=== PATIENT | female | born 1985 | race Caucasian/White ===

== ENCOUNTER → 2018-07-06 | Outpatient (CLI) | payer OTHER ==
[2018-07-06 13:32] LABS: HCG, SERUM QUANTITATIVE < 1.0 MIU/ML
== END ==
LOC: M LAB 12:08
DX: Z32.00 Encounter for pregnancy test, result unknown (principal)
CPT/HCPCS: 84702

== ENCOUNTER 2018-08-05 14:18 | Emergency (ER) | payer OTHER ==
[2018-08-05 15:25] LABS: HCG, SERUM QUANTITATIVE < 1.0 MIU/ML
== END 2018-08-05 15:34 | disposition home or self-care (01) ==
LOC: M ED 14:18
DX: Z32.00 Encounter for pregnancy test, result unknown (principal); R10.2 Pelvic and perineal pain
CPT/HCPCS: 84702

== ENCOUNTER → 2019-04-20 | Outpatient (CLI) | payer OTHER ==
[~2019-04-20] MED LIST: MULTTAB20 PO
== END ==
LOC: M LAB 09:02
PROVIDERS: ATTEND Obstetrics & Gynecology
DX: Z32.00 Encounter for pregnancy test, result unknown (principal)

== ENCOUNTER → 2019-07-01 | Outpatient (CLI) | payer OTHER | LOC: M LAB 16:14 | PROVIDERS: ATTEND Obstetrics & Gynecology | DX: Z32.00 Encounter for pregnancy test, result unknown (principal) ==

== ENCOUNTER → 2019-09-28 | Outpatient (REF) | payer OTHER ==
[2019-09-28 13:20] LABS: INFLUENZA A AMPLIFICATION NEGATIVE (NEGATIVE); INFLUENZA B AMPLIFICATION NEGATIVE (NEGATIVE)
== END ==
LOC: M LAB REF 09:30
PROVIDERS: ATTEND Physician Assistant Medical
DX: J02.9 Acute pharyngitis, unspecified (principal); R50.9 Fever, unspecified

== ENCOUNTER 2020-01-16 08:43 | Outpatient (RCR) | payer OTHER | END 2020-01-19 | LOC: M PT 08:43 | PROVIDERS: ATTEND Nurse Practitioner Family | DX: Z51.89 Encounter for other specified aftercare (principal); M72.2 Plantar fascial fibromatosis ==

== ENCOUNTER → 2020-01-20 | Outpatient (CLI) | payer OTHER ==
[2020-01-20 13:45] LABS: BASO % 0.4 % (0.0-1.0); EOS # 0.1 10^3/uL (0.0-0.5); EOS % 0.7 % (0.0-3.0); HEMATOCRIT 38.2 % (36.0-47.0); HEMOGLOBIN 12.6 g/dl (12.0-15.5); LYMPH % 42.7 % (24.0-44.0); MEAN CORPUSCULAR HEMOGLOBIN 30.1 pg (27.0-33.0); MEAN CORPUSCULAR VOLUME 91.2 fl (80.0-96.0); MONO # 0.4 10^3/uL (0.0-0.8); MONO % 5.5 % (0.0-5.0); NEUTROPHILS # 3.6 10^3/uL (1.5-8.5); NEUTROPHILS % 50.6 % (36.0-66.0); PLATELET COUNT, AUTOMATED 179 10^3/uL (150-450); RED BLOOD COUNT 4.19 10^6/uL (4.00-5.40); WHITE BLOOD COUNT 7.1 10^3/uL (4.0-10.0)
[2020-01-20 14:18] LABS: HEMOGLOBIN A1c 5.5 %
[2020-01-20 14:28] LABS: ALBUMIN 4.1 GM/DL (3.2-5.2); ALT/SGPT 24 U/L (12-78); BILIRUBIN,TOTAL 1.6 MG/DL (0.2-1.0); BLOOD UREA NITROGEN 13 MG/DL (7-18); CARBON DIOXIDE LEVEL 24 MEQ/L (21-32); CHLORIDE LEVEL 105 MEQ/L (98-107); CHOLESTEROL LEVEL 151 MG/DL (<200); CHOLESTEROL RISK RATIO 2.157 (<5); CREATININE FOR GFR 0.74 MG/DL (0.55-1.30); GLOMERULAR FILTRATION RATE > 60.0 (>60); GLUCOSE, FASTING 75 MG/DL (70-100); HDL CHOLESTEROL 70 MG/DL (>40); LDL CHOLESTEROL 73 MG/DL (<100); NON-HDL-C 81 MG/DL; POTASSIUM SERUM 4.2 MEQ/L (3.5-5.1); SODIUM LEVEL 136 MEQ/L (136-145); THYROID STIMULATING HORMONE 0.947 uIU/ML (0.358-3.740); TOTAL PROTEIN 7.2 GM/DL (6.4-8.2); TRIGLYCERIDES LEVEL 42 MG/DL (<150)
== END ==
LOC: M LAB 13:17
PROVIDERS: ATTEND Nurse Practitioner Family
DX: E28.2 Polycystic ovarian syndrome (principal); E66.9 Obesity, unspecified

== ENCOUNTER 2020-02-17 07:57 | Outpatient (RCR) | payer OTHER | END 2020-02-18 | LOC: M PT 07:57 | PROVIDERS: ATTEND Nurse Practitioner Family | DX: M72.2 Plantar fascial fibromatosis (principal) ==

== ENCOUNTER 2020-03-19 11:00 | Outpatient (RCR) | payer OTHER | END 2020-03-20 | LOC: M PT 11:00 | PROVIDERS: ATTEND Nurse Practitioner Family | DX: M72.2 Plantar fascial fibromatosis (principal) ==

== ENCOUNTER → 2020-04-06 | Outpatient (CLI) | payer OTHER ==
[~2020-04-06] MED LIST changes: +[UNRECOGNIZED DRUG - CODE]
[2020-06-01 20:19] LABS: PROGESTERONE 51.22 NG/ML
== END ==
LOC: M LAB 06:49
PROVIDERS: ATTEND Obstetrics & Gynecology
DX: Z32.01 Encounter for pregnancy test, result positive (principal)

== ENCOUNTER → 2020-04-08 | Outpatient (CLI) | payer OTHER | LOC: M LAB 07:07 | PROVIDERS: ATTEND Obstetrics & Gynecology | DX: O09.00 Supervision of pregnancy with history of infertility, unspecified trimester (principal); Z3A.00 Weeks of gestation of pregnancy not specified ==

== ENCOUNTER → 2020-04-20 | Outpatient (RCR) | payer OTHER | LOC: M PT 03-23 13:00 | PROVIDERS: ATTEND Nurse Practitioner Family | DX: M72.2 Plantar fascial fibromatosis (principal) ==

== ENCOUNTER 2020-04-30 13:03 | Emergency (ER) | payer OTHER ==
[~2020-04-30] VITALS: Ht 167.6 cm; Wt 74.5 kg
[~2020-04-30 13:03] MED LIST changes: -[UNRECOGNIZED DRUG - CODE]
[2020-04-30] MEDS ORDERED: [UNRECOGNIZED DRUG - CODE] (13:12)
[2020-04-30] MEDS ORDERED: RHOGAM 300 MCG (1500 IU) INJ (J2790) IM ONE (14:00)
[2020-04-30 16:48] VITALS: BP 116/71
== END 2020-04-30 16:55 | disposition home or self-care (01) ==
LOC: M ED 13:03
DX: O21.9 Vomiting of pregnancy, unspecified (principal); Z3A.01 Less than 8 weeks gestation of pregnancy; E28.2 Polycystic ovarian syndrome; O99.281 Endocrine, nutritional and metabolic diseases complicating pregnancy, first trimester
CPT/HCPCS: 86850; 96372; 99283; J2790

== ENCOUNTER → 2020-05-07 | Outpatient (CLI) | payer OTHER ==
[~2020-05-07] MED LIST changes: +[UNRECOGNIZED DRUG - CODE]
== END ==
LOC: M LAB 06:22
PROVIDERS: ATTEND Obstetrics & Gynecology
DX: O02.1 Missed abortion (principal)

== ENCOUNTER → 2020-06-08 | Outpatient (CLI) | payer OTHER | LOC: M LAB 07:15 | PROVIDERS: ATTEND Student in an Organized Health Care Education/Training Program | DX: O02.1 Missed abortion (principal); Z3A.00 Weeks of gestation of pregnancy not specified ==

== ENCOUNTER → 2020-07-15 | Outpatient (CLI) | payer OTHER ==
[~2020-07-15] MED LIST changes: +GUAI1SOL7 PO; +TESS100C PO
== END ==
LOC: M LAB 06:52
PROVIDERS: ATTEND Obstetrics & Gynecology
DX: Z32.00 Encounter for pregnancy test, result unknown (principal)

== ENCOUNTER 2020-07-18 15:26 | Emergency (ER) | payer OTHER ==
[~2020-07-18] VITALS: Ht 167.6 cm; Wt 77.7 kg
[~2020-07-18 15:26] MED LIST changes: -GUAI1SOL7 PO; -TESS100C PO
[2020-07-18 16:20] LABS: BASO % 0.2 % (0.0-1.0); HEMOGLOBIN 12.4 g/dl (12.0-15.5); LYMPH # 1.3 10^3/uL (1.5-5.0); LYMPH % 16.1 % (24.0-44.0); MEAN CORPUSCULAR HGB CONC 31.8 g/dl (32.0-36.5); MEAN CORPUSCULAR VOLUME 91.1 fl (80.0-96.0); MONO # 0.1 10^3/uL (0.0-0.8); MONO % 1.2 % (0.0-5.0); NEUTROPHILS # 6.8 10^3/uL (1.5-8.5); NEUTROPHILS % 82.3 % (36.0-66.0); PLATELET COUNT, AUTOMATED 206 10^3/uL (150-450); RED BLOOD COUNT 4.28 10^6/uL (4.00-5.40); WHITE BLOOD COUNT 8.3 10^3/uL (4.0-10.0)
[2020-07-18] MEDS ORDERED: NS 1,000 ML IV ONE (16:45)
[2020-07-18 16:47] LABS: ALBUMIN 4.2 GM/DL (3.2-5.2); ALT/SGPT 27 U/L (12-78); BILIRUBIN,DIRECT 0.3 MG/DL (0.0-0.2); BILIRUBIN,TOTAL 1.1 MG/DL (0.2-1.0); CK-MB VALUE MASS < 1.0 NG/ML (<3.6); CPK CREATINE PHOSPHOKINASE 92 U/L (26-192); LIPASE 142 U/L (73-393); MB/CK RELATIVE INDEX 1.09 (< OR =4); TOTAL PROTEIN 7.6 GM/DL (6.4-8.2); TROPONIN I < 0.02 NG/ML (< 0.10)
[2020-07-18 16:48] LABS: INR 0.9; PROTHROMBIN TIME 12.3 SECONDS (12.5-14.3)
[2020-07-18 16:58] LABS: D-DIMER QUANT 294.46 ng/ml (<500)
[2020-07-18 17:00] LABS: BLOOD UREA NITROGEN 12 MG/DL (7-18); CARBON DIOXIDE LEVEL 27 MEQ/L (21-32); CHLORIDE LEVEL 108 MEQ/L (98-107); GLOMERULAR FILTRATION RATE > 60.0 (>60); GLUCOSE, FASTING 125 MG/DL (70-100); POTASSIUM SERUM 4.1 MEQ/L (3.5-5.1); SODIUM LEVEL 140 MEQ/L (136-145)
[2020-07-18 17:04] LABS: HCG, SERUM QUALITATIVE NEGATIVE (NEGATIVE)
[2020-07-18 18:20] LABS: INFLUENZA A AMPLIFICATION NEGATIVE (NEGATIVE); INFLUENZA B AMPLIFICATION NEGATIVE (NEGATIVE)
[2020-07-18] MEDS ORDERED: ISOVUE-370 76% 100ML VIAL As Ordered ONE (18:29)
[2020-07-18] MEDS ORDERED: KETOROLAC 30 MG/ML 1ML VIAL IV ONE (18:30)
--- NOTE | 2020-07-18 18:36 | ECGEPIP ---
[facility] - ED Test Date: 2020-07-18 Pat Name: JOSE LUIS CANDELARIO Department: Room: - Gender: Female Landman: DANGELO : 1985 Requested By: Pamela Scott Order Number: [id number] Reading MD: Pamela Scott Measurements Intervals [place] Rate: 69 P: 66 TN: 138 QRS: 69 QRSD: 83 T: 61 QT: 374 QTc: 403 Interpretive Statements SINUS RHYTHM No prior Electronically Signed on 07-18-2020 18:35:54 EST by Pamela Scott
--- NOTE | 2020-07-18 18:57 | REPVR ---
PROCEDURE INFORMATION: Exam: CT Angiography Chest With Contrast Exam date and time: 07/18/2020 6:32 PM Age: 35 years old Clinical indication: Shortness of breath; Chest pain; Additional info: Pleuritic chest pain, SOB TECHNIQUE: Imaging protocol: Computed tomographic angiography of the chest with intravenous contrast. 3D rendering (Not supervised by radiologist): MIP and/or 3D reconstructed images were created by the technologist. Radiation optimization: All CT scans at this facility use at least one of these dose optimization techniques: automated exposure control; mA and/or kV adjustment per patient size (includes targeted exams where dose is matched to clinical indication); or iterative reconstruction. Contrast material: ISOVUE 370; Contrast volume: 100 ml; Contrast route: INTRAVENOUS (IV); COMPARISON: No relevant prior studies available. FINDINGS: Pulmonary arteries: No focal pulmonary artery filling defect to suggest acute pulmonary embolus. Aorta: No thoracic aortic aneurysm or dissection. Lungs: Pulmonary vascular/interstitial pattern does not suggest active pulmonary edema. No suspicious lung mass or air space process. No central endobronchial lesion. Pleural space: No pleural effusion or pneumothorax. Heart: No overt cardiac enlargement or abnormal volume of pericardial fluid. Lymph nodes: No enlarged mediastinal lymph nodes. Bones/joints: Bony structures show no acute fracture or destructive process. Soft tissues: No asymmetric abnormality of the extrathoracic soft tissues. IMPRESSION: 1. No evidence of acute pulmonary embolus or aortic dissection. 2. No other acute or concerning focal intrathoracic abnormality. Electronically signed by: Grey Larson On 07/18/2020 18:57:14 PM
--- NOTE | 2020-07-18 18:59 | REPVR ---
PROCEDURE INFORMATION: Exam: CT Abdomen And Pelvis With Contrast Exam date and time: 07/18/2020 6:32 PM Age: 35 years old Clinical indication: Abdominal pain; Additional info: Pleuritic chest pain, SOB TECHNIQUE: Imaging protocol: Computed tomography of the abdomen and pelvis with intravenous contrast. Radiation optimization: All CT scans at this facility use at least one of these dose optimization techniques: automated exposure control; mA and/or kV adjustment per patient size (includes targeted exams where dose is matched to clinical indication); or iterative reconstruction. Contrast material: ISOVUE 370; Contrast volume: 100 ml; Contrast route: INTRAVENOUS (IV); COMPARISON: No relevant prior studies available. FINDINGS: Liver: Liver appears normal with no focal abnormality. Gallbladder and bile ducts: Gallbladder is present and shows no evidence of gallstone. Pancreas: Pancreas appears normal. No focal mass or peripancreatic inflammation. Spleen: Spleen appears homogeneous without focal mass. Adrenal glands: Adrenal glands are normal in appearance. Kidneys and ureters: Kidneys appear normal, with no stone, solid mass or hydronephrosis. Stomach and bowel: No evidence of small bowel obstruction. No evidence of acute diverticulitis. Appendix: Appendix is not seen. No RLQ inflammation to suggest appendicitis. Intraperitoneal space: No pneumoperitoneum. Vasculature: Aorta is normal in caliber. No atherosclerotic change, aneurysm or dissection. Normal luminal caliber and enhancement of the celiac trunk and SMA and their major branches, and the main right and left renal arteries, KURT and iliac vessels. Lymph nodes: No enlarged lymph nodes. Urinary bladder: Urinary bladder is distended. Reproductive: Female reproductive organs appear unremarkable. Tampon is present within the vagina. Bones/joints: Bony structures show no acute fracture or destructive process. Soft tissues: No concerning focal abnormality of the extra-abdominal and pelvic soft tissues. IMPRESSION: 1. Unremarkable exam of the abdominal aorta and its major branch vessels. 2. No solid organ or bowel abnormality to explain the clinical symptoms. Electronically signed by: Grey Larson On 07/18/2020 18:59:30 PM
[2020-07-18] MEDS ORDERED: TESS100C PO (19:38)
[2020-07-18] MEDS ORDERED: GUAI1SOL7 PO (19:38)
[2020-07-18] MEDS ORDERED: guaiFENesin/CODEINE SYRUP 5 ML UDC PO ONE (19:45)
[2020-07-18] MEDS ORDERED: BENZONATATE 100 MG CAP PO ONE (19:45)
[2020-07-18 20:16] VITALS: BP 117/64
== END 2020-07-18 20:12 | disposition home or self-care (01) ==
LOC: M ED 15:26
DX: R06.02 Shortness of breath (principal); R10.9 Unspecified abdominal pain; R07.9 Chest pain, unspecified; R05 Cough; E28.2 Polycystic ovarian syndrome
CPT/HCPCS: 36415; 71275; 74177; 80048; 80076; 82550; 82553; 83690; 84484; 84703; 85025; 85379; 85610; 87631; 93005; 96361; 96374; 99284; J1885; Q9967; U0002

== ENCOUNTER → 2020-07-30 | Outpatient (CLI) | payer OTHER ==
[~2020-07-30] MED LIST changes: +GUAI1SOL7 PO; +ISOVUE-370 76% 100ML VIAL As Ordered ONE; +TESS100C PO
--- NOTE | 2020-07-30 08:39 | REPVR ---
PROCEDURE INFORMATION: Exam: CT Head Without And With Contrast Exam date and time: 07/30/2020 8:20 AM Age: 35 years old Clinical indication: Pain; Headache; Additional info: Headaches, R/O mass CT 1st XR 2nd TECHNIQUE: Imaging protocol: Computed tomography of the head without and with intravenous contrast. Radiation optimization: All CT scans at this facility use at least one of these dose optimization techniques: automated exposure control; mA and/or kV adjustment per patient size (includes targeted exams where dose is matched to clinical indication); or iterative reconstruction. Contrast material: ISO 370; Contrast volume: 75 ml; Contrast route: INTRAVENOUS (IV); COMPARISON: No relevant prior studies available. FINDINGS: Brain: Normal. No hemorrhage. Unremarkable white matter. No mass effect. No abnormal enhancement. Cerebral ventricles: No ventriculomegaly. Bones/joints: Unremarkable. No acute fracture. Paranasal sinuses: Visualized sinuses are unremarkable. No fluid levels. Mastoid air cells: Visualized mastoid air cells are well aerated. Soft tissues: Unremarkable. IMPRESSION: No acute intracranial abnormality. Electronically signed by: Jil Ibarra On 07/30/2020 08:39:08 AM
--- NOTE | 2020-07-30 11:28 | REP ---
INDICATION: HEADACHES, R/O MASS CT 1ST XR 2ND. COMPARISON: None. TECHNIQUE: Three views. FINDINGS: There is some straightening of the normal cervical lordosis. Cervical vertebral body heights are preserved. Alignment is normal. Disc spaces are maintained. Prevertebral soft tissues are not widened. AP and open-mouth odontoid views are unremarkable. IMPRESSION: Straightening, otherwise negative cervical spine radiographs. <Electronically signed by Deejay Quach > 07/30/20 [id number]
== END ==
LOC: M RAD 07:46
PROVIDERS: ATTEND Nurse Practitioner Family
DX: G44.89 Other headache syndrome (principal)
CPT/HCPCS: 70470; 72040; Q9967

== ENCOUNTER → 2020-09-15 | Outpatient (CLI) | payer OTHER ==
[~2020-09-15] MED LIST changes: -ISOVUE-370 76% 100ML VIAL As Ordered ONE
== END ==
LOC: M LAB 06:18
PROVIDERS: ATTEND Obstetrics & Gynecology
DX: Z32.00 Encounter for pregnancy test, result unknown (principal)

== ENCOUNTER → 2020-09-17 | Outpatient (CLI) | payer OTHER | LOC: M LAB 06:38 | PROVIDERS: ATTEND Obstetrics & Gynecology | DX: O09.00 Supervision of pregnancy with history of infertility, unspecified trimester (principal) ==

== ENCOUNTER → 2020-11-13 | Outpatient (CLI) | payer OTHER | LOC: M LAB 06:31 | PROVIDERS: ATTEND Obstetrics & Gynecology | DX: O02.1 Missed abortion (principal) ==

== ENCOUNTER → 2020-12-18 | Outpatient (CLI) | payer OTHER ==
--- NOTE | 2020-12-18 17:50 | REPVR ---
PROCEDURE INFORMATION: Exam: CT Maxillofacial Without Contrast, Sinus Exam date and time: 12/18/2020 5:27 PM Age: 35 years old Clinical indication: Sinusitis; Chronic; Additional info: Chronic sinusitis TECHNIQUE: Imaging protocol: CT Maxillofacial without contrast. Focus on the sinuses. Radiation optimization: All CT scans at this facility use at least one of these dose optimization techniques: automated exposure control; mA and/or kV adjustment per patient size (includes targeted exams where dose is matched to clinical indication); or iterative reconstruction. COMPARISON: No relevant prior studies available. FINDINGS: Frontal sinuses: Normal. No air-fluid levels. Ethmoid air cells: Normal. No air-fluid levels. Sphenoid sinuses: Normal. No air-fluid levels. Maxillary sinuses: Normal. No air-fluid levels. Ostiomeatal units are patent. Nasal cavity/Septum: Unremarkable. Orbital cavity: Orbits are normal. Globes are unremarkable. Bones/joints: Unremarkable. Soft tissues: Unremarkable. IMPRESSION: No acute findings. Electronically signed by: Domenic Awan On 12/18/2020 17:50:22 PM
== END ==
LOC: M RAD 17:21
PROVIDERS: ATTEND Otolaryngology
DX: J32.0 Chronic maxillary sinusitis (principal)

== ENCOUNTER → 2021-05-18 | Outpatient (CLI) | payer OTHER | LOC: M LAB 16:25 | PROVIDERS: ATTEND Obstetrics & Gynecology | DX: Z32.00 Encounter for pregnancy test, result unknown (principal) ==

== ENCOUNTER → 2021-05-20 | Outpatient (CLI) | payer OTHER | LOC: M LAB 16:54 | PROVIDERS: ATTEND Obstetrics & Gynecology | DX: O09.00 Supervision of pregnancy with history of infertility, unspecified trimester (principal); Z3A.00 Weeks of gestation of pregnancy not specified ==

== ENCOUNTER → 2021-05-23 | Outpatient (CLI) | payer OTHER | LOC: M LAB 11:57 | PROVIDERS: ATTEND Obstetrics & Gynecology | DX: Z32.01 Encounter for pregnancy test, result positive (principal) ==

== ENCOUNTER 2021-06-05 21:06 | Emergency (ER) | payer OTHER ==
[~2021-06-05] VITALS: Ht 167.6 cm; Wt 76.6 kg
--- OUTSIDE RECORDS SUMMARY | 2021-06-05 21:15 | CCD | Continuity of Care Document ---
Author Author Oralia NOLASCO Organization Unknown Address [address], [address], [place] [address] Phone [phone] Care Team Providers Care Nuclear Medicine Supervisor Name Role Phone Shailesh Samuel MD AUT Unavailable Kenrick Lopez M.D. AUTM [phone] Problems Active Problems Provider Date Allergic rhinitis due to pollen Hiram Nolasco M.D. On set: 05/31/2021 Note: 3+ positive reaction to tree mix # 1 (birch, oak, maple) on intradermal test. Allergic rhinitis due to house dust mite Hiram Nolasco M.D. Onset: 05/31/2021 Note: 2+ reaction to dust mites on intra dermal test. Vasomotor rhinitis Hiram Nolasco M.D. Onset: 021 Social History Type Date Description Comments Sex Unknown Tobacco Use Reviewed: 05/31/21 Patient has never smoked Smoking Status Reviewed: 05/31/21 Patient has never smoked Allergies and adverse reactions Active Allergies Criticality Reaction | Severity Comments Date Cetirizine Unable to assess criticality Palpitations 05/31/2021 Medications Active Medications SIG Qnty Indications Ordering Provide r Date [facility] Budesonide 32mcg/Act Suspensio n 2 sprays each nostril every night 8.430ml J30.1 Hiram estrada M.D. 05/31/2021 Metformin HCL 500mg Tablets Take 1 tablet three times a day Unknown Immunizations Description No Information Available Vital Signs Date Vital Result Comment 05/31/2021 8:32am Weight 164.00 lb Height 65 inches 5'5" Heart Rate 71 /min Respiratory Rate 16 /min BP Systolic 93 mmHg BP Diastolic 61 mmHg BMI (Body Mass Index) 27.3 kg/m2 Results Description No Information Available Procedures Date Code Description Status 05/31/2021 06722 Office/Outpatient New Low MDM 30 -44 Minutes Completed 05/31/2021 29809 Allergy Tests Intrad ermal W/ Allergenic Extr Immediate Reaction Completed 05/31/2021 40720 Allergy Tests Percutaneous W/ Al lergenic Extracts Completed Medical Devices Description No Information Available Encounters Type Date Location Provider Dx Diagnosis Office Visit 05/31/2021 8:30a Main Office Hiram Nolasco M.D. J30.1 Allergic rhinitis due to pollen J30.89 Other allergic rhinitis J30.0 Vasomotor rhinitis Assessments Date Code Description Provider 05/31/2021 J30.1 Allergic rhinitis due to pollen Hiram Nolasco M.D. 05/31/2021 J30.89 Other allergic rhinitis Hiram Nolasco M.D. 05/31/2021 J30.0 Vasomotor rhinitis Hiram menchaca M.D. Plan of Treatment Future Appointment(s):* 10/14/2021 8:45 am - Hiram Nolasco M.D. at Main Office 05/31/2021 - Hiram Nolasco M.D.* J30.1 Allergic rhinitis due to pollen* New Medication:* [facility] Budesonide 32 mcg/Act - 2 sprays each nostril every night * Recommendations:* I reviewed allergy avoidance measures for pollen that may possibly help with symptoms. Suggested to start this patient on intranasal steroid spray (Rhinocort safe for ) for the congestion and to use antihistamine prn itching and sneezing. Nasal spray should be used consistently every night to be effective. * J30.89 Other allergic rhinitis* Recommendations:* I reviewed effective allergy avoidance measures for dust mites. See recommendations above. * J30.0 Vasomotor rhinitis* Recommendations:* May need to add Astelin if patient continues to be symptomatic after she delivers her baby (currently 6 weeks ). . * All * Follow up:* 3 months. Sooner if needed. Functional Status Description No Information Available Mental Status Description No Information Available Referrals Description No Information Available
--- OUTSIDE RECORDS SUMMARY | 2021-06-05 21:15 | CCD | Continuity of Care Document ---
Author Author Karen MCDANIEL Organization Unknown Address [address] [place], [place] [address] Phone [phone] Care Team Providers Care Pile Driver Operator Name Role Phone Farzad500Indiesjenelle ([facility]) AUTM [employer] AUTM [phone] Problems Description No Information Available Social History Type Date Description Comments Sex Unknown Tobacco Use Start: Unknown Never Smoked Cigarettes Smoking Status Reviewed: 05/24/21 Never Smoked Cigarettes ETOH Use Denies alcohol use Allergies, Adverse Reactions, Alerts Description No Known Drug Allergies Medications Active Medications SIG Qnty Indications Ordering Provide r Date Mvi Unknown Metformin HCL Unknown Immunizations Description No Information Available Vital Signs Date Vital Result Comment 05/24/2021 6:52pm BP Systolic 109 mmHg BP Diastolic 76 mmHg Heart Rate 92 /min Respiratory Rate 15 /min O2 % BldC Oximetry 99 % Body Temperature 97.9 F Weight 162.00 lb Height 66 inches 5'6" BMI (Body Mass Index) 26.1 kg/m2 Pain Level 3 06/26/2020 7:22pm BP Systolic 116 mmHg BP Diastolic 76 mmHg Heart Rate 78 /min Respiratory Rate 16 /min O2 % BldC Oximetry 99 % Body Temperature 98.1 F Weight 170.00 lb Pain Level 2 Results Description No Information Available Procedures Date Code Description Status 05/24/2021 93108 Office/Outpatient Established Lo w MDM 20-29 Min Completed Medical Devices Description No Information Available Encounters Type Date Location Provider Dx Diagnosis Office Visit 05/24/2021 2:45p Main Office Carlos Rizo J0 6.9 Acute upper respiratory infection, unspecified Z20.828 Contact w and exposure to ot h viral communicable diseases Assessments Date Code Description Provider 05/24/2021 J06.9 Acute upper respiratory infectio n, unspecified Sunday Mcdaniel, PStacie 05/24/2021 Z20.828 Contact with and (whatley spected) exposure to other viral communicable diseases Sunday Mcdaniel, PStacie Plan of Treatment No Information Available Functional Status Description No Information Available Mental Status Description No Information Available Referrals Description No Information Available
--- OUTSIDE RECORDS SUMMARY | 2021-06-05 21:15 | CCD | Continuity of Care Document ---
Author Author Oralia NOLASCO Organization Unknown Address [address], [place] [address] Phone [phone] Care Team Providers Care Insemination Worker Name Role Phone Shailesh Samuel MD AUT Unavailable Kenrick Lopez M.D. AUTM [phone] Problems Active Problems Provider Date Allergic rhinitis [...] kg/m2 Results Description No Information Available Procedures Description No Information Available Medical Devices Description No Information Available Encounters Description No Information Available Assessments Date Code Description Provider 05/31/2021 J30.1 Allergic rhinitis due to pollen Hiram Nolasco M.D. 05/31/2021 J30.89 Other allergic rhinitis Hiram Nolasco M.D. 05/31/2021 J30.0 Vasomotor rhinitis Hiram menchaca M.D. Plan of Treatment 05/31/2021 - Hiram Nolasco M.D.* J30.1 Allergic [...] mites. See recommendations above. * J30.0 Vasomotor rhinitis Functional Status Description No Information Available Mental Status Description No Information Available Referrals Description No Information Available
--- OUTSIDE RECORDS SUMMARY | 2021-06-05 21:16 | CCD ---
Author Author [facility] Organization [facility] Address Unknown Phone Unavailable Care Team Providers Care High Lift Mule Operator Name Role Phone JuanRaysa Maki Unavailable Unavailable MIGNON NOLASCO MD Unavailable Unavailable MIGNON NOLASCO MD Unavailable Unavailable MIGNON NOLASCO MD Unavailable Unavailable MIGNON NOLASCO MD Unavailable Unavailable MIGNON NOLASCO MD Unavailable Unavailable MIGNON NOLASCO MD Unavailable Unavailable MIGNON NOLASCO MD Unavailable Unavailable MIGNON NOLASCO MD Unavailable Unavailable MIGNON NOLASCO MD Unavailable Unavailable MIGNON NOLASCO MD Unavailable Unavailable MIGNON NOLASCO MD Unavailable Unavailable MIGNON NOLASCO MD Unavailable Unavailable MIGNON NOLASCO MD Unavailable Unavailable MIGNON NOLASCO MD Unavailable Unavailable MIGNON NOLASCO MD Unavailable Unavailable MIGNON NOLASCO MD Unavailable Unavailable MIGNON NOLASCO MD Unavailable Unavailable CHROSTMIGNON LORENZ MD Unavailable Unavailable CHROSTMIGNON LORENZ MD Unavailable Unavailable CHROSTMIGNON LORENZ MD Unavailable Unavailable CHROSTMIGNON LORENZ MD Unavailable Unavailable CHROSTMIGNON LORENZ MD Unavailable Unavailable CHROSTMIGNON LORENZ MD Unavailable Unavailable CHROSTMIGNON LORENZ MD Unavailable Unavailable CHROSTOWSKIMIGNON MD Unavailable Unavailable CHROSTOWSKIMIGNON MD Unavailable Unavailable CHROSTOWSKIMIGNON MD Unavailable Unavailable CHROSTOWSKIMIGNON MD Unavailable Unavailable CHROSTOWSKIMIGNON MD Unavailable Unavailable CHROSTOWSKIMIGNON MD Unavailable Unavailable CHROSTOWSKIMIGNON MD Unavailable Unavailable CHROSTOWSKIMIGNON MD Unavailable Unavailable CHROSTOWSKIMIGNON MD Unavailable Unavailable CHROSTOWSKIMIGNON MD Unavailable Unavailable CHROSTMIGNON LORENZ MD Unavailable Unavailable CHROSTOWSKIMIGNON MD Unavailable Unavailable CHROSTMIGNON LORENZ MD Unavailable Unavailable CHROSTOWSKIMIGNON MD Unavailable Unavailable CHROSTMIGNON LORENZ MD Unavailable Unavailable Pitts, A Raysa FORKLIFT SUPERVISOR Unavailable Unavailable Pitts, A Raysa FORKLIFT SUPERVISOR Unavailable Unavailable Pitts, A Raysa FORKLIFT SUPERVISOR Unavailable Unavailable Juan, A Raysa FORKLIFT SUPERVISOR Unavailable Unavailable Pitts, A Raysa FORKLIFT SUPERVISOR Unavailable Unavailable Juan, A Raysa FORKLIFT SUPERVISOR Unavailable Unavailable Juan, A Raysa FORKLIFT SUPERVISOR Unavailable Unavailable Pitts, A Raysa FORKLIFT SUPERVISOR Unavailable Unavailable Pitts, A Raysa FORKLIFT SUPERVISOR Unavailable Unavailable Juan, A Raysa FORKLIFT SUPERVISOR Unavailable Unavailable Pitts, A Raysa FORKLIFT SUPERVISOR Unavailable Unavailable Juan, A Raysa FORKLIFT SUPERVISOR Unavailable Unavailable Pitts, A Raysa FORKLIFT SUPERVISOR Unavailable Unavailable Pitts, A Raysa FORKLIFT SUPERVISOR Unavailable Unavailable Pitts, A Raysa FORKLIFT SUPERVISOR Unavailable Unavailable Pitts, A Raysa FORKLIFT SUPERVISOR Unavailable Unavailable Juan, A Raysa FORKLIFT SUPERVISOR Unavailable Unavailable Pitts, A Raysa FORKLIFT SUPERVISOR Unavailable Unavailable Pitts, A Raysa FORKLIFT SUPERVISOR Unavailable Unavailable Pitts, A Raysa FORKLIFT SUPERVISOR Unavailable Unavailable Juan, A Raysa FORKLIFT SUPERVISOR Unavailable Unavailable Pitts, A Raysa FORKLIFT SUPERVISOR Unavailable Unavailable Pitts, A Raysa FORKLIFT SUPERVISOR Unavailable Unavailable Pitts, A Raysa FORKLIFT SUPERVISOR Unavailable Unavailable Pitts, A Raysa FORKLIFT SUPERVISOR Unavailable Unavailable Juan, A Raysa FORKLIFT SUPERVISOR Unavailable Unavailable Wayne Jeffers MD Unavailable Unavailable Wayne Jeffers MD Unavailable Unavailable Foree, R Amirah MD Unavailable Unavailable Foree, R Amirah MD Unavailable Unavailable Foree, R Amirah MD Unavailable Unavailable Foree, R Amirah MD Unavailable Unavailable Foree, R Amirah MD Unavailable Unavailable Foree, R Amirah MD Unavailable Unavailable Foree, R Amirah MD Unavailable Unavailable Foree, R Amirah MD Unavailable Unavailable Foree, R Amirah Unavailable Unavailable Foree, R Amirah MD Unavailable Unavailable Foree, R Amirah MD Unavailable Unavailable Foree, R Amirah MD Unavailable Unavailable Foree, R Amirah Unavailable Unavailable Foree, R Amirah Unavailable Unavailable Foree, R Amirah Unavailable Unavailable Foree, R Amirah MD Unavailable Unavailable Foree, R Amirah Unavailable Unavailable Foree, R Amirah MD Unavailable Unavailable Foree, R Amirah MD Unavailable Unavailable Foree, R Amirah MD Unavailable Unavailable Foree, R Amirah MD Unavailable Unavailable Foree, R Amirah MD Unavailable Unavailable Foree, R Amirah MD Unavailable Unavailable Foree, R Amirah MD Unavailable Unavailable Foree, R Amirah MD Unavailable Unavailable Foree, R Amirah MD Unavailable Unavailable Foree, R Amirah MD Unavailable Unavailable Foree, R Amirah MD Unavailable Unavailable Foree, R Amirah MD Unavailable Unavailable Foree, R Amirah MD Unavailable Unavailable Foree, R Amirah MD Unavailable Unavailable Foree, R Amirah MD Unavailable Unavailable Foree, R Amirah MD Unavailable Unavailable Foree, R Amirah MD Unavailable Unavailable Foree, R Amirah MD Unavailable Unavailable Wayne VALLADARES DPM Unavailable Unavailable Wayne VALLADARES DPM Unavailable Unavailable Wayne VALLADARES DPM Unavailable Unavailable Wayne VALLADARES DPM Unavailable Unavailable Wayne VALLADARES DPM Unavailable Unavailable Wayne VALLADARES DPM Unavailable Unavailable Wayne VALLADARES DPM Unavailable Unavailable Wayne VALLADARES DPM Unavailable Unavailable Wayne VALLADARES DPM Unavailable Unavailable Wayne VALLADARES DPM Unavailable Unavailable Wayne VALLADARES DPM Unavailable Unavailable Wayne VALLADARES DPM Unavailable Unavailable Wayne VALLADARES DPM Unavailable Unavailable Wayne VALLADARES DPM Unavailable Unavailable MAJAK, R VERNELL DPM Unavailable Unavailable MAJAK, R VERNELL DPM Unavailable Unavailable MAJAK, R VERNELL DPM Unavailable Unavailable MAJAK, R VERNELL DPM Unavailable Unavailable MAJAK, R VERNELL DPM Unavailable Unavailable MAJAK, R VERNELL DPM Unavailable Unavailable MAJAK, R VERNELL DPM Unavailable Unavailable MAJAK, R VERNELL DPM Unavailable Unavailable MAJAK, R VERNELL DPM Unavailable Unavailable MAJAK, R VERNELL DPM Unavailable Unavailable MAJAK, R VERNELL DPM Unavailable Unavailable MAJAK, R VERNELL DPM Unavailable Unavailable MAJAK, R VERNELL DPM Unavailable Unavailable MAJAK, R VERNELL DPM Unavailable Unavailable MAJAK, R VERNELL DPM Unavailable Unavailable MAJAK, R VERNELL DPM Unavailable Unavailable MAJAK, R VERNELL DPM Unavailable Unavailable Conner BIRMINGHAM MD Unavailable Unavailable Connre BIRMINGHAM MD Unavailable Unavailable Conner BIRMINGHAM MD Unavailable Unavailable Conner BIRMINGHAM MD Unavailable Unavailable Conner BIRMINGHAM MD Unavailable Unavailable Conner BIRMINGHAM MD Unavailable Unavailable Conner BIRMINGHAM MD Unavailable Unavailable Conner BIRMINGHAM MD Unavailable Unavailable Conner BIRMINGHAM MD Unavailable Unavailable Conner BIRMINGHAM MD Unavailable Unavailable Conner BIRMINGHAM MD Unavailable Unavailable Conner BIRMINGHAM MD Unavailable Unavailable Conner BIRMINGHAM MD Unavailable Unavailable Conner BIRMINGHAM MD Unavailable Unavailable Conner BIRMINGHAM MD Unavailable Unavailable Conner BIRMINGHAM MD Unavailable Unavailable Conner BIRMINGHAM MD Unavailable Unavailable Conner BIRMINGHAM MD Unavailable Unavailable Conner BIRMINGHAM MD Unavailable Unavailable Conner BIRMINGHAM MD Unavailable Unavailable Conner BIRMINGHAM MD Unavailable Unavailable Conner BIRMINGHAM MD Unavailable Unavailable Conner BIRMINGHAM MD Unavailable Unavailable Conner BIRMINGHAM MD Unavailable Unavailable Conner BIRMINGHAM MD Unavailable Unavailable Conner BIRMINGHAM MD Unavailable Unavailable Conner BIRMINGHAM MD Unavailable Unavailable Conner BIRMINGHAM MD Unavailable Unavailable Conner BIRMINGHAM MD Unavailable Unavailable Conner BIRMINGHAM MD Unavailable Unavailable Conner BIRMINGHAM MD Unavailable Unavailable Conner BIRMINGHAM MD Unavailable Unavailable Conner BIRMINGHAM MD Unavailable Unavailable Conner BIRMINGHAM MD Unavailable Unavailable Conner BIRMINGHAM MD Unavailable Unavailable Conner BIRMINGHAM MD Unavailable Unavailable Conner BIRMINGHAM MD Unavailable Unavailable Conner BIRMINGHAM MD Unavailable Unavailable Conner BIRMINGHAM MD Unavailable Unavailable Conner BIRMINGHAM MD Unavailable Unavailable Conner BIRMINGHAM MD Unavailable Unavailable Conner BIRM[place]HAM MD Unavailable Unavailable Conner BIRM[place] MD Unavailable Unavailable Conner BIRMINGHAM MD Unavailable Unavailable Conner B[place] MD Unavailable Unavailable YATES, DESMOND STEVENSON MD Unavailable Unavailable YATES, DESMOND STEVENSON MD Unavailable Unavailable YATES, DESMOND STEVENSON MD Unavailable Unavailable YATES, DESMOND STEVENSON MD Unavailable Unavailable YATES, DESMOND STEVENSON MD Unavailable Unavailable YATES, DESMOND STEVENSON MD Unavailable Unavailable YATES, DESMOND STEVENSON MD Unavailable Unavailable YATES, DESMOND STEVENSON MD Unavailable Unavailable YATES, DESMOND STEVENSON MD Unavailable Unavailable YATES, DESMOND STEVENSON MD Unavailable Unavailable YATES, DESMOND STEVENSON MD Unavailable Unavailable YATES, DESMOND STEVENSON MD Unavailable Unavailable YATES, DESMOND STEVENSON MD Unavailable Unavailable YATES, DESMOND STEVENSON MD Unavailable Unavailable YATES, DESMOND STEVENSON MD Unavailable Unavailable YATES, DESMOND STEVENSON MD Unavailable Unavailable YATES, DESMOND STEVENSON MD Unavailable Unavailable YATES, DESMOND STEVENSON MD Unavailable Unavailable YATES, DESMOND STEVENSON MD Unavailable Unavailable YATES, DESMOND STEVENSON MD Unavailable Unavailable YATES, DESMOND STEVENSON MD Unavailable Unavailable YATES, DESMOND STEVENSON MD Unavailable Unavailable YATES, DESMOND STEVENSON MD Unavailable Unavailable YATES, DESMOND STEVENSON MD Unavailable Unavailable YATES, DESMOND STEVENSON MD Unavailable Unavailable YATES, DESMOND STEVENSON MD Unavailable Unavailable YATES, DESMOND STEVENSON MD Unavailable Unavailable YATES, DESMOND STEVENSON MD Unavailable Unavailable YATES, DESMOND STEVENSON MD Unavailable Unavailable YATES, DESMOND STEVENSON MD Unavailable Unavailable YATES, DESMOND STEVENSON MD Unavailable Unavailable YATES, DESMOND STEVENSON MD Unavailable Unavailable YATES, DESMOND STEVENSON MD Unavailable Unavailable VIOLETA, VILMA PA Unavailable Unavailable VIOLETA, VILMA PA Unavailable Unavailable VIOLETA, VILMA PA Unavailable Unavailable VIOLETA, VILMA PA Unavailable Unavailable VIOLETA, VILMA PA Unavailable Unavailable VIOLETA, VILMA PA Unavailable Unavailable VIOLETA, VILMA PA Unavailable Unavailable VIOLETA, VILMA PA Unavailable Unavailable VIOLETA, VILMA PA Unavailable Unavailable VIOLETA, VILMA PA Unavailable Unavailable VIOLETA, VILMA PA Unavailable Unavailable VIOLETA, VILMA PA Unavailable Unavailable VIOLETA, VILMA PA Unavailable Unavailable VIOLETA, VILMA PA Unavailable Unavailable VIOLETA, VILMA PA Unavailable Unavailable VIOLETA, VILMA PA Unavailable Unavailable VIOLETA, VILMA PA Unavailable Unavailable VIOLETA, VILMA PA Unavailable Unavailable VIOLETA, VILMA PA Unavailable Unavailable VIOLETA, VILMA PA Unavailable Unavailable VIOLETA, VILMA PA Unavailable Unavailable VIOLETA, VILMA PA Unavailable Unavailable VIOLETA, VILMA PA Unavailable Unavailable VIOLETA, VILMA PA Unavailable Unavailable VIOLETA, VILMA PA Unavailable Unavailable VIOLETA, VILMA PA Unavailable Unavailable VIOLETA, VILMA PA Unavailable Unavailable VIOLETA, VILMA PA Unavailable Unavailable VIOLETA, VILMA PA Unavailable Unavailable VIOLETA, VILMA PA Unavailable Unavailable VIOLETA, VILMA PA Unavailable Unavailable VIOLETA, VILMA PA Unavailable Unavailable VIOLETA, VILMA PA Unavailable Unavailable VIOLETA, VILMA PA Unavailable Unavailable VIOLETA, VILMA PA Unavailable Unavailable VIOLETA, VILMA PA Unavailable Unavailable MAESTRI, NGOC LOCO MS Unavailable Unavailable MAESTRI, NGOC LOCO MS Unavailable Unavailable VIDA MANDUJANO MD Unavailable Unavailable VIDA MANDUJANO MD Unavailable Unavailable VIDA MANDUJANO MD Unavailable Unavailable VIDA MANDUJANO MD Unavailable Unavailable VIDA MANDUJANO MD Unavailable Unavailable VIDA MANDUJANO MD Unavailable Unavailable VIDA MANDUJANO MD Unavailable Unavailable VIDA MANDUJANO MD Unavailable Unavailable VIDA MANDUJANO MD Unavailable Unavailable VIDA MANDUJANO MD Unavailable Unavailable VIDA MANDUJANO MD Unavailable Unavailable VIDA MANDUJANO MD Unavailable Unavailable VIDA MANDUJANO MD Unavailable Unavailable VIDA MANDUJANO MD Unavailable Unavailable VIDA MANDUJANO MD Unavailable Unavailable VIDA MANDUJANO MD Unavailable Unavailable VIDA MANDUJANO MD Unavailable Unavailable VIDA MANDUJANO MD Unavailable Unavailable VIDA MANDUJANO MD Unavailable Unavailable VIDA MANDUJANO MD Unavailable Unavailable VIDA MANDUJANO MD Unavailable Unavailable VIDA MANDUJANO MD Unavailable Unavailable VIDA MANDUJANO MD Unavailable Unavailable VIDA MANDUJANO MD Unavailable Unavailable VIDA MANDUJANO MD Unavailable Unavailable VIDA MANDUJANO MD Unavailable Unavailable VIDA MANDUJANO MD Unavailable Unavailable VIDA MANDUJANO MD Unavailable Unavailable VIDA MANDUJANO MD Unavailable Unavailable VIDA MANDUJANO MD Unavailable Unavailable VIDA MANDUJANO MD Unavailable Unavailable VIDA MANDUJANO MD Unavailable Unavailable VIDA MANDUJANO MD Unavailable Unavailable VIDA MANDUJANO MD Unavailable Unavailable VIDA MANDUJANO MD Unavailable Unavailable VIDA MANDUJANO MD Unavailable Unavailable VIDA MANDUJANO MD Unavailable Unavailable VIDA MANDUJANO MD Unavailable Unavailable VIDA MANDUJANO MD Unavailable Unavailable VIDA MANDUJANO MD Unavailable Unavailable VIDA MANDUJANO MD Unavailable Unavailable VIDA MANDUJANO MD Unavailable Unavailable VIDA MANDUJANO MD Unavailable Unavailable VIDA MANDUJANO MD Unavailable Unavailable VIDA MANDUJANO MD Unavailable Unavailable VIDA MANDUJANO MD Unavailable Unavailable VIDA MANDUJANO MD Unavailable Unavailable VIDA MANDUJANO MD Unavailable Unavailable VIDA MANDUJANO MD Unavailable Unavailable VIDA MANDUJANO MD Unavailable Unavailable VIDA MANDUJANO MD Unavailable Unavailable VIDA MANDUJANO MD Unavailable Unavailable Foree, R Amirah Unavailable Unavailable Foree, R Amirah MD Unavailable Unavailable Foree, R Amirah MD Unavailable Unavailable Foree, R Amirah MD Unavailable Unavailable Foree, R Amirah MD Unavailable Unavailable Foree, R Amirah MD Unavailable Unavailable Foree, R Amirah MD Unavailable Unavailable Foree, R Amirah MD Unavailable Unavailable Foree, R Amirah MD Unavailable Unavailable Foree, R Amirah MD Unavailable Unavailable Foree, R Amirah MD Unavailable Unavailable Foree, R Amirah MD Unavailable Unavailable Foree, R Amirah MD Unavailable Unavailable Foree, R Amirah MD Unavailable Unavailable Foree, R Amirah MD Unavailable Unavailable Foree, R Amirah MD Unavailable Unavailable Foree, R Amirah MD Unavailable Unavailable Foree, R Amirah MD Unavailable Unavailable Foree, R Amirah MD Unavailable Unavailable Foree, R Amirah MD Unavailable Unavailable Foree, R Amirah MD Unavailable Unavailable Foree, R Amirah MD Unavailable Unavailable Foree, R Amirah MD Unavailable Unavailable Foree, R Amirah MD Unavailable Unavailable Foree, R Amirah MD Unavailable Unavailable Foree, R Amirah MD Unavailable Unavailable Foree, R Amirah MD Unavailable Unavailable Foree, R Amirah MD Unavailable Unavailable Foree, R Amirah MD Unavailable Unavailable Foree, R Amirah MD Unavailable Unavailable Foree, R Amirah MD Unavailable Unavailable Foree, R Amirah MD Unavailable Unavailable Foree, R Amirah MD Unavailable Unavailable Foree, R Amirah MD Unavailable Unavailable Foree, R Amiarh MD Unavailable Unavailable Foree, R Amirah MD Unavailable Unavailable Foree, R Amirah MD Unavailable Unavailable Lyndsay SAMUEL MD Unavailable Unavailable Lyndsay SAMUEL MD Unavailable Unavailable Lyndsay SAMUEL MD Unavailable Unavailable Lyndsay SAMUEL MD Unavailable Unavailable Lyndsay SAMUEL MD Unavailable Unavailable Lyndsay SAMUEL MD Unavailable Unavailable Lyndsay SAMUEL MD Unavailable Unavailable Lyndsay SAMUEL MD Unavailable Unavailable Lyndsay SAMUEL MD Unavailable Unavailable Lyndsay SAMUEL MD Unavailable Unavailable Lyndsay SAMUEL MD Unavailable Unavailable Lyndsay SAMUEL MD Unavailable Unavailable ROXANA, C ZENIA MD Unavailable Unavailable ROXANA, C ZENIA MD Unavailable Unavailable ROXANA, C ZENIA MD Unavailable Unavailable ROXANA, C ZENIA MD Unavailable Unavailable ROXANA, C ZENIA MD Unavailable Unavailable ROXANA, C ZENIA MD Unavailable Unavailable ROXANA, C ZENIA MD Unavailable Unavailable ROXANA, C ZENIA MD Unavailable Unavailable ROXANA, C ZENIA MD Unavailable Unavailable ROXANA, C ZENIA MD Unavailable Unavailable ROXANA, C ZENIA MD Unavailable Unavailable ROXANA, C ZENIA MD Unavailable Unavailable ROXANA, C ZENIA MD Unavailable Unavailable ROXANA, C ZENIA MD Unavailable Unavailable ROXANA, C ZENIA MD Unavailable Unavailable ROXANA, C ZENIA MD Unavailable Unavailable ROXANA, C ZENIA MD Unavailable Unavailable ROXANA, C ZENIA MD Unavailable Unavailable ROXANA, C ZENIA MD Unavailable Unavailable ROXANA, C ZENIA MD Unavailable Unavailable ROXANA, C ZENIA MD Unavailable Unavailable ROXANA, C ZENIA MD Unavailable Unavailable Yates, Cecy FORKLIFT SUPERVISOR Unavailable Unavailable Yates, Cecy FORKLIFT SUPERVISOR Unavailable Unavailable Yates, Cecy FORKLIFT SUPERVISOR Unavailable Unavailable Yates, Cecy FORKLIFT SUPERVISOR Unavailable Unavailable Yates, Cecy FORKLIFT SUPERVISOR Unavailable Unavailable Yates, Cecy FORKLIFT SUPERVISOR Unavailable Unavailable Yates, Cecy FORKLIFT SUPERVISOR Unavailable Unavailable Yates, Cecy FORKLIFT SUPERVISOR Unavailable Unavailable Yates, Cecy FORKLIFT SUPERVISOR Unavailable Unavailable Yates, Cecy FORKLIFT SUPERVISOR Unavailable Unavailable Yates, Cecy FORKLIFT SUPERVISOR Unavailable Unavailable Yates, Cecy FORKLIFT SUPERVISOR Unavailable Unavailable Yates, Cecy FORKLIFT SUPERVISOR Unavailable Unavailable ROOT, A VALENTINA FORKLIFT SUPERVISOR Unavailable Unavailable ROOT, A VALENTINA FORKLIFT SUPERVISOR Unavailable Unavailable ROOT, A VALENTINA FORKLIFT SUPERVISOR Unavailable Unavailable ROOT, A VALENTINA FORKLIFT SUPERVISOR Unavailable Unavailable ROOT, A VALENTINA FORKLIFT SUPERVISOR Unavailable Unavailable ROOT, A VALENTINA FORKLIFT SUPERVISOR Unavailable Unavailable ROOT, A VALENTINA FORKLIFT SUPERVISOR Unavailable Unavailable ROOT, A VALENTINA FORKLIFT SUPERVISOR Unavailable Unavailable ROOT, A VALENTINA FORKLIFT SUPERVISOR Unavailable Unavailable ROOT, A VALENTINA FORKLIFT SUPERVISOR Unavailable Unavailable ROOT, A VALENTNIA FORKLIFT SUPERVISOR Unavailable Unavailable ROOT, A VALENTINA FORKLIFT SUPERVISOR Unavailable Unavailable ROOT, A VALENTINA FORKLIFT SUPERVISOR Unavailable Unavailable ROOT, A VALENTINA FORKLIFT SUPERVISOR Unavailable Unavailable ROOT, A VALENTINA FORKLIFT SUPERVISOR Unavailable Unavailable ROOT, A VALENTINA FORKLIFT SUPERVISOR Unavailable Unavailable ROOT, A VALENTINA FORKLIFT SUPERVISOR Unavailable Unavailable ROOT, A VALENTINA FORKLIFT SUPERVISOR Unavailable Unavailable ROOT, A VALENTINA FORKLIFT SUPERVISOR Unavailable Unavailable ROOT, A VALENTINA FORKLIFT SUPERVISOR Unavailable Unavailable ROOT, A VALENTINA FORKLIFT SUPERVISOR Unavailable Unavailable ROOT, A VALENTINA FORKLIFT SUPERVISOR Unavailable Unavailable ROOT, A VALENTINA FORKLIFT SUPERVISOR Unavailable Unavailable ROOT, A VALENTINA FORKLIFT SUPERVISOR Unavailable Unavailable ROOT, A VALENTINA FORKLIFT SUPERVISOR Unavailable Unavailable ROOT, A VALENTINA FORKLIFT SUPERVISOR Unavailable Unavailable ROOT, A VALENTINA FORKLIFT SUPERVISOR Unavailable Unavailable ROOT, A VALENTINA FORKLIFT SUPERVISOR Unavailable Unavailable ROOT, A VALENTINA FORKLIFT SUPERVISOR Unavailable Unavailable ROOT, A VALENTINA FORKLIFT SUPERVISOR Unavailable Unavailable ROOT, A VALENTINA FORKLIFT SUPERVISOR Unavailable Unavailable ROOT, A VALENTINA FORKLIFT SUPERVISOR Unavailable Unavailable ROOT, A VALENTINA FORKLIFT SUPERVISOR Unavailable Unavailable ROOT, A VALENTINA FORKLIFT SUPERVISOR Unavailable Unavailable ROOT, A VALENTINA FORKLIFT SUPERVISOR Unavailable Unavailable ROOT, A VALENTINA FORKLIFT SUPERVISOR Unavailable Unavailable ROOT, A VALENTINA FORKLIFT SUPERVISOR Unavailable Unavailable ROOT, A VALENTINA FORKLIFT SUPERVISOR Unavailable Unavailable ROOT, A VALENTINA FORKLIFT SUPERVISOR Unavailable Unavailable ROOT, A VALENTINA FORKLIFT SUPERVISOR Unavailable Unavailable ROOT, A VALENTINA FORKLIFT SUPERVISOR Unavailable Unavailable ROOT, A VALENTINA FORKLIFT SUPERVISOR Unavailable Unavailable ROOT, A VALENTINA FORKLIFT SUPERVISOR Unavailable Unavailable CICIARConner CHEEK MD Unavailable Unavailable CICIARConner CHEEK MD Unavailable Unavailable CICIARConner CHEEK MD Unavailable Unavailable CICIARConner CHEEK MD Unavailable Unavailable CICIARConner CHEEK MD Unavailable Unavailable CICIARConner CHEEK MD Unavailable Unavailable CICIARConner CHEEK MD Unavailable Unavailable CICIARConner CHEEK MD Unavailable Unavailable CICIARConner CHEEK MD Unavailable Unavailable CICIARConner CHEEK MD Unavailable Unavailable CICIARConner CHEEK MD Unavailable Unavailable CICIARConner CHEEK MD Unavailable Unavailable CICIARConner CHEEK MD Unavailable Unavailable CICIARConner CHEEK MD Unavailable Unavailable CICIARConner CHEEK MD Unavailable Unavailable CICIARConner CHEEK MD Unavailable Unavailable CICIARConner CHEEK MD Unavailable Unavailable CICConner BRANDT MD Unavailable Unavailable CICIARConner CHEEK MD Unavailable Unavailable CICIARConner CHEEK MD Unavailable Unavailable CICIARConner CHEEK MD Unavailable Unavailable CICIARConner CHEEK MD Unavailable Unavailable CICIARConner CHEEK MD Unavailable Unavailable CICIARConner CHEEK MD Unavailable Unavailable CICIARConner CHEEK MD Unavailable Unavailable CICIARConner CHEEK MD Unavailable Unavailable CICIARConner CHEEK MD Unavailable Unavailable CICIARConner CHEEK MD Unavailable Unavailable CICIARConner CHEEK MD Unavailable Unavailable CICIARConner CHEEK MD Unavailable Unavailable CICIARConner CHEEK MD Unavailable Unavailable CICIARConner CHEEK MD Unavailable Unavailable CICIARConner CHEEK MD Unavailable Unavailable CICIARConner CHEEK MD Unavailable Unavailable CICIARConner CHEEK MD Unavailable Unavailable CICIARConner CHEEK MD Unavailable Unavailable CICIARConner CHEEK MD Unavailable Unavailable CICIARELLI, Conner HARMON MD Unavailable Unavailable CICIARELLI, Conner HARMON MD Unavailable Unavailable CICIARELLI, Conner HARMON MD Unavailable Unavailable CICIARELLI, Conner HARMON MD Unavailable Unavailable CICIARELLI, Conner HARMON MD Unavailable Unavailable CICIARELLI, Conner HARMON MD Unavailable Unavailable CICIARELLI, Conner HARMON MD Unavailable Unavailable CICIARELLI, Conner HARMON MD Unavailable Unavailable YATES, DESMOND STEVENSON MD Unavailable Unavailable YATES, DESMOND STEVENSON MD Unavailable Unavailable YATES, DESMOND STEVENSON MD Unavailable Unavailable YATES, DESMOND STEVENSON MD Unavailable Unavailable YATES, DESMOND STEVENSON MD Unavailable Unavailable YATES, DESMOND STEVENSON MD Unavailable Unavailable YATES, DESMOND STEVENSON MD Unavailable Unavailable YATES, DESMOND STEVENSON MD Unavailable Unavailable YATES, DESMOND STEVENSON MD Unavailable Unavailable YATES, DESMOND STEVENSON MD Unavailable Unavailable YATES, DESMOND STEVENSON MD Unavailable Unavailable YATES, DESMOND STEVENSON MD Unavailable Unavailable YATES, DESMOND STEVENSON MD Unavailable Unavailable YATES, DESMOND STEVENSON MD Unavailable Unavailable YATES, DESMOND STEVENSON MD Unavailable Unavailable YATES, DESMOND STEVENSON MD Unavailable Unavailable YATES, DESMOND STEVENSON MD Unavailable Unavailable YATES, DESMOND STEVENSON MD Unavailable Unavailable YATES, DESMOND STEVENSON MD Unavailable Unavailable YATES, DESMOND STEVENSON MD Unavailable Unavailable YATES, DESMOND STEVENSON MD Unavailable Unavailable YATES, DESMOND STEVENSON MD Unavailable Unavailable YATES, DESMOND STEVENSON MD Unavailable Unavailable YATES, DESMOND STEVENSON MD Unavailable Unavailable YATES, DESMOND STEVENSON MD Unavailable Unavailable YATES, DESMOND STEVENSON MD Unavailable Unavailable YATES, DESMOND STEVENSON MD Unavailable Unavailable YATES, DESMOND STEVENSON MD Unavailable Unavailable YATES, DESMOND STEVENSON MD Unavailable Unavailable YATES, DESMOND STEVENSON MD Unavailable Unavailable YATES, DESMOND STEVENSON MD Unavailable Unavailable YATES, DESMOND STEVENSON MD Unavailable Unavailable YATES, DESMOND STEVENSON MD Unavailable Unavailable Jose, J Sis Unavailable Unavailable Jose, J Sis Unavailable Unavailable Jose, J Sis Unavailable Unavailable Jose, J Sis Unavailable Unavailable Jose, J Sis Unavailable Unavailable Jose, J Sis Unavailable Unavailable Jose, J Sis Unavailable Unavailable Jose, J Sis Unavailable Unavailable Jose, J Sis Unavailable Unavailable Jose, J Sis Unavailable Unavailable Jose, J Sis Unavailable Unavailable Jose, J Sis Unavailable Unavailable Jose, J Sis Unavailable Unavailable Jose, J Sis Unavailable Unavailable Jose, J Sis Unavailable Unavailable Jose, J Sis Unavailable Unavailable Jose, J Sis Unavailable Unavailable Jose, J Sis Unavailable Unavailable Jose, J Sis Unavailable Unavailable Jose, J Sis Unavailable Unavailable Jose, J Sis Unavailable Unavailable Jose, J Sis Unavailable Unavailable Jose, J Sis Unavailable Unavailable Jose, J Sis Unavailable Unavailable Jose, J Sis Unavailable Unavailable Jose, J Sis Unavailable Unavailable Jose, J Sis Unavailable Unavailable Jay, Ibeth Neha PA Unavailable Unavailable Jay, Ibeth Neha PA Unavailable Unavailable Jay, Ibeth Neha PA Unavailable Unavailable Jay, Ibeth Neha PA Unavailable Unavailable Jay, Ibeth Neha PA Unavailable Unavailable Jay, Ibeth Neha PA Unavailable Unavailable Jay, Ibeth Neha PA Unavailable Unavailable Jay, Ibeth Neha PA Unavailable Unavailable Jay, Ibeth Neha PA Unavailable Unavailable Jay, Ibeth Neha PA Unavailable Unavailable Pressman, K Dee MD Unavailable Unavailable Pressman, K Dee MD Unavailable Unavailable Pressman, K Dee MD Unavailable Unavailable Pressman, K Dee MD Unavailable Unavailable Pressman, K Dee MD Unavailable Unavailable Re-disclosure Warning The records that you are about to access may contain information from federally-assisted alcohol or drug abuse programs. If such information is present, then the following federally mandated warning applies: This information has been disclosed to you from records protected by federal confidentiality rules (42 CFR part 2). The federal rules prohibit you from making any further disclosure of this information unless further disclosure is expressly permitted by the written consent of the person to whom it pertains or as otherwise permitted by 42 CFR part 2. A general authorization for the release of medical or other information is NOT sufficient for this purpose. The Federal rules restrict any use of the information to criminally investigate or prosecute any alcohol or drug abuse patient.The records that you are about to access may contain highly sensitive health information, the redisclosure of which is protected by Article 27-F of the [facility] Public Health law. If you continue you may have access to information: Regarding HIV / AIDS; Provided by facilities licensed or operated by the [facility] Office of Mental Health; or Provided by the [facility] Office for People With Developmental Disabilities. If such information is present, then the following [place] State mandated warning applies: This information has been disclosed to you from confidential records which are protected by state law. State law prohibits you from making any further disclosure of this information without the specific written consent of the person to whom it pertains, or as otherwise permitted by law. Any unauthorized further disclosure in violation of state law may result in a fine or snf sentence or both. A general authorization for the release of medical or other information is NOT sufficient authorization for further disc losure. Advance Directives Directive Description Scada Technician Brand Sales Consultant Status Observation Descr iption Data Source(s) packet given Pt Bill of Rights, Priv Prac, Ad Dir completed packet given Pt Bill of Rights, Priv Prac, Ad Dir [facility] ([facility]) Note: Pt declined AD packet Allergies and Adverse Reactions Type Description Substance Reaction Status Data Source(s ) Allergy to substance No Known Allergies No known allergies (situation ) [facility] ([facility]) Propensity to adverse reactions NO KNOWN ALLERGIES NO KNOWN ALLERGIES [facility] Allergy to substance No Known Allergies No known allergies (situation ) [facility] ([facility]) Allergy to substance No Known Allergies No known allergies (situation ) [facility] ([facility]) Allergy to substance No Known Allergies No known allergies (situation ) [facility] ([facility]) Allergy to substance No Known Allergies No known allergies (situation ) [facility] ([facility]) Allergy to substance No Known Allergies No known allergies (situation ) [facility] ([facility]) Allergy to substance No Known Allergies No known allergies (situation ) [facility] ([facility]) Allergy to substance No Known Allergies No known allergies (situation ) [facility] ([facility]) Allergy to substance No Known Allergies No known allergies (situation ) [facility] ([facility]) Encounters Encounter Providers Location Date Indications Data Source(s ) Outpatient Attender: MIGNON NOLASCO MD Main Office 05/31/2021 08:30:00 AM EDT [facility] ([facility] Outpatient Attender: VILMA duran 05/24/2021 02:45:00 PM EDT [facility] ([facility] <td ID="encounterTypeDescriptionID0">AHR </td><td>Raysa Martinez FORKLIFT SUPERVISOR</td><td>[facility]</td><td>03/08/2021</td><td>1:29PM</td><td>2:12PM</td><td><content ID="encounterDiagnosisID0-0">Allergic Rhinitis</content>, <content ID="encounterDiagnosisID0-1">Headache Syndromes</content>, <content ID="encounterDiagnosisID0-2">Obesity</content>, <content ID="encounterDiagnosisID0-3">Abnormal Electrocardiogram</content>, <content ID="encounterDiagnosisID0-4">Visit For: Routine Adult H&p Without Abnormal Findings</content></td>Outpatient Attender: Raysa Martinez NP [facility] 03/08/2021 01:29:00 PM EDT - 03/08/2021 02:12:54 PM EDT Allergic RhinitisHeadache SyndromesAbnormal ElectrocardiogramObesityVisit For: Routine Adult H&p Without Abnormal Findings [facility] ([facility]) Allergic Rhinitis Headache Syndromes Abnormal Electrocardiogram Obesity Visit For: Routine Adult H&p Without Abn ormal Findings Outpatient Attender: LOCO RUTH MSReferrer: Sis Garcia 02/12/2021 12:00:[address] [facility] Outpatient Referrer: Dee Bennett MD 01/15/2021 12:00:00 [facility] miscarriage <td ID="encounterTypeDescriptionID0">Acu te Telehealth FaceTime</td><td>Raysa Martinez NP</td><td>[facility]</td><td>01/11/2021</td><td>8:00AM</td><td>8:30AM</td><td><content ID="encounterDiagnosisID0-0">Headache Syndromes</content>, <content ID="encounterDiagnosisID0-1">Obesity</content>, <content ID="encounterDiagnosisID0-2">Allergic Rhinitis</content>, <content ID="encounterDiagnosisID0-3">Palpitations</content></td>Outpatient Attender: Raysa Martinez NP [facility] 01/11/2021 08:00:00 AM EDT - 01/11/2021 08:30:55 AM EDT PalpitationsAllergic RhinitisHeadache SyndromesObesity [facility] ([facility] Palpitations Allergic Rhinitis Headache Syndromes Obesity Outpatient Attender: VERNELL VALLADARES [facility] Office 12/19 03:45:00 PM EDT [facility] ([facility] Outpatient Attender: ZENIA Samuel/Kun/Earl/Noris sidhu 12/30/2020 03:45:00 PM EDT [facility] Out[facility] Attender: LOCO FARAZ MSReferrer: Sis Garcia 12/29/2020 12:00:00 AM T [facility] Outpatient Attender: VERNELL VALLADARES [facility] Office 11/19 03:45:00 PM EDT [facility] ([facility] <td ID="encounterTypeDescriptionID0">Bethany rt Update</td><td>Raysa Martinez NP</td><td></td><td>11/16/2020</td><td>7:48AM</td><td>11:59PM</td><td></td>Unkno Attender: Raysa Martinez NP 11/16/2020 07:4 8:00 AM EDT - 11/16/2020 11:59:00 PM EDT [facility] ([facility]) <td ID="encounterTypeDescriptionID0">Bethany rt Update</td><td>Raysa Martinez NP</td><td></td><td>11/09/2020</td><td>8:08AM</td><td>11:59PM</td><td></td>Unkno Attender: Raysa Martinez NP 11/09/2020 08:0 8:00 AM EDT - 11/09/2020 11:59:00 PM EDT [facility] ([facility]) Outpatient Attender: Sis Garcia [id number] 11/09/2020 12:00: 00 AM EDT Complete or unspecified spontaneous without complication [facility] Complete or unspecified spontaneous abor tion without complication Outpatient Attender: VERNELL VALLADARES [facility] 10/19 03:45:00 PM EDT [facility] ([facility] Outpatient Attender: VALENTINA ELLIOTT NP 10/14/2020 12:00:00 AM [facility] Outpatient Attender: SHERIDAN BIRMINGHAM MD 10/13/2020 10:51: 58 AM EST [facility] [place] [facility] ( in Healthcare facility) Attender: SHERIDAN BIRMINGHAM MDAdmitter: SHERIDAN BIRMINGHAM MDConsultant: Raysa Martinez 10/13/19 06:34:00 AM EST - 10/13/2020 07:06:00 PM [facility] Outpatient Attender: SHERIDAN BIRMINGHAM MDAdmitter: SHERIDAN BRANDT MD 10/13/2020 06:34:00 AM EST - 10/13/2020 07:06:00 PM EST MISSED AB *GESTATION 6WK 3DAYS [facility] MISSED AB *GESTATION 6WK 3DAYS Patient discharged. Outpatient Attender: SHERIDAN BIRMINGHAM MD 10/12/2020 01:25: 33 PM EST [facility] [place] [facility] Outpatient Attender: SHERIDAN BIRMINGHAM MD 10/12/2020 12:40:00 PM EST COVID TEST ONLY [facility] COVID TEST ONLY Outpatient Attender: VERNELL VALLADARES [facility] 09/21 12:30:00 PM EST [facility] ([facility] Outpatient Referrer: VALENTINA ELLIOTT NP 09/29/2020 12:00:00 AM [facility] Outpatient Attender: VALENTINA ELLIOTT NP 09/29/2020 12:00:00 AM [facility] Outpatient Attender: VERNELL VALLADARES [facility] 09/2020 01:45:00 PM EST [facility] ([facility] Outpatient Referrer: VIDA MATOS.CT-[email or web address] 09/10/2020 09:11:47 A M EST [facility] Outpatient Attender: ZENIA Samuel/Kun/Earl/Noris sidhu 09/07/2020 12:15:00 PM EST [facility] ([facility] Outpatient Attender: VIDA MATOS.[email or web address] 09/07/2020 08:07:10 AM EST - 09/07/2020 09:13:39 AM EST [facility] <td ID="encounterTypeDescriptionID0">Ref erral Order</td><td>Raysa Martinez NP</td><td></td><td>07/30/2020</td><td></td>Unknown Attender: Raysa Martinez NP 07/30/2020 04:10:00 PM EST - 07/30/2020 11:59:00 PM EST [facility] ([facility]) Outpatient<td ID="encounterTypeDescripti onID1">Telephonic Encounter</td><td>Raysa Martinez NP</td><td>[facility]</td><td>07/28/2020</td><td><content ID="encounterDiagnosisID1-0"> Headache Syndromes</content>, <content ID="encounterDiagnosisID1-1">Sinusitis Acute</content>, <content ID="encounterDiagnosisID1-2">Bronchitis</content>, <content ID="encounterDiagnosisID1-3">Cervicalgia</content></td> Attender: Raysa Martinez NP [facility] 07/28/2020 03:30:00 PM EST - 07/28/2020 02:10:51 PM EST CervicalgiaBronchitisSinusitis AcuteHead ache SyndromesCervicalgiaBronchitisSinusitis AcuteHeadache Syndromes [facility] ([facility]) Cervicalgia Bronchitis Sinusitis Acute Headache Syndromes Cervicalgia Bronchitis Sinusitis Acute Headache Syndromes <td ID="encounterTypeDescriptionID2">Tel ephonic Encounter</td><td>Raysa Martinez NP</td><td>[facility]</td><td>07/21/2020</td><td><content ID="encounterDiagnosisID2-0">Sinusitis Acute</content>, <content ID="encounterDiagnosisID2-1">Upper Respiratory Infection</content>, <content ID="encounterDiagnosisID2-2">Bronchitis</content>, <content ID="encounterDiagnosisID2-3">Chest Pain</content>, <content ID="encounterDiagnosisID2-4">Abnormal Electrocardiogram</content></td>Outpatient Attender: Raysa Martinez NP [facility] 07/21/2020 11:3 0:00 AM EST - 07/21/2020 08:24:10 AM EST Abnormal ElectrocardiogramChest PainBron chitisUpper Respiratory InfectionSinusitis AcuteAbnormal ElectrocardiogramChest PainBronchitisUpper Respiratory InfectionSinusitis AcuteAbnormal ElectrocardiogramChest PainBronchitisUpper Respiratory InfectionSinusitis Acute [facility] ([facility]) Abnormal Electrocardiogram Chest Pain Bronchitis Upper Respiratory Infection Sinusitis Acute Abnormal Electrocardiogram Chest Pain Bronchitis Upper Respiratory Infection Sinusitis Acute Abnormal Electrocardiogram Chest Pain Bronchitis Upper Respiratory Infection Sinusitis Acute Outpatient Attender: Raysa Martinez NP 07/15/2020 11:46:00 PM EST User Experience Manager [facility] User Experience Manager Outpatient Attender: Raysa Martinez NP 07/15/2020 03:04:00 PM EST Xray [facility] Xray Outpatient<td ID="encounterTypeDescripti onID3">Acute L1</td><td>Raysa Martinez NP</td><td>[facility]</td><td>07/15/2020</td><td><content ID="encounterDiagnosisID3-0">Sinusitis Acute</content>, <content ID="encounterDiagnosisID3-1">Bronchitis</content>, <content ID="encounterDiagnosisID3-2">Upper Respiratory Infection</content></td> Attender: Raysa Martinez NP [facility] 07/15/2020 01:00:00 PM EST - 07/15/2020 03:04:54 PM EST Upper Respiratory InfectionBronchitisSin usitis AcuteUpper Respiratory InfectionBronchitisSinusitis AcuteUpper Respiratory InfectionBronchitisSinusitis AcuteUpper Respiratory InfectionBronchitisSinusitis Acute [facility] ([facility]) Upper Respiratory Infection Bronchitis Sinusitis Acute Upper Respiratory Infection Bronchitis Sinusitis Acute Upper Respiratory Infection Bronchitis Sinusitis Acute Upper Respiratory Infection Bronchitis Sinusitis Acute <td ID="encounterTypeDescriptionID4">Acu te L1</td><td>Raysa Martinez FORKLIFT SUPERVISOR</td><td>[facility]</td><td>07/09/2020</td><td><content ID="encounterDiagnosisID4-0">Upper Respiratory Infection</content>, <content ID="encounterDiagnosisID4-1">Sinusitis Acute</content></td>Outpatient Attender: Raysa Martinez NP [facility] 07/09/2020 08:00:00 AM EST - 07/09/2020 08:38:14 AM EST Sinusitis AcuteUpper Respiratory Infecti onSinusitis AcuteUpper Respiratory InfectionSinusitis AcuteUpper Respiratory InfectionSinusitis AcuteUpper Respiratory InfectionSinusitis AcuteUpper Respiratory Infection [facility] ([facility]) Sinusitis Acute Upper Respiratory Infection Sinusitis Acute Upper Respiratory Infection Sinusitis Acute Upper Respiratory Infection Sinusitis Acute Upper Respiratory Infection Sinusitis Acute Upper Respiratory Infection Outpatient Attender: Neha jean-baptiste 06/26/2020 05:45:00 PM EST [facility] ([facility]) Outpatient Attender: Cecy Henley loco 06/20/2020 09:45:00 AM EDT [facility] ([facility]) Attender: ELVA YATES MDAdmitter: Amirah Jeffers MD 05/21/2020 10:36:45 AM EDT [facility] [place] [facility] ( in Healthcare facility) Attender: Almaz Sitles MDAdmitter: Amirah Jeffers MDConsultant: Raysa Martinez 05/19/2020 07:29:00 AM EDT - 05/19/2020 05:52:00 PM EDT [facility] Outpatient Attender: Amirah Jeffers MDAt tender: ELVA YATES MDAdmitter: Amirah Jeffers MD 05/19/2020 07:29:00 AM EDT - 05/19/2020 05:52:00 PM EDT SUCTION DILATION AND CURETTAGE [facility] SUCTION DILATION AND CURETTAGE Patient discharged. Outpatient Attender: ELVA YATES MD 05/18/2020 07:02:11 PM EDT [facility] [place] [facility] Outpatient Attender: ELVA YATES MD 05/18/2020 01:44 :00 PM EDT COVID TEST AND NURSE INTERVIEW [facility] COVID TEST AND NURSE INTERVIEW Immunizations Vaccine Date Status Description Data Source(s) COVID-19 VACCINE [facility] 11/14/2020 12:00:00 AM EDT completed [facility] Vaccine Series Complete: YESThis Data wa s Submitted to [facility] Via [employer]. COVID-19 VACCINE Emulis 10/24/2020 12:00:00 AM EST completed [facility] Vaccine Series Complete: NOThis Data was Submitted to [facility] Via [employer]. Medications Medication Brand Name Start Date Product Form Dose Route Admi nistrative Instructions Pharmacy Instructions Status Indications Reaction Description Data Source(s) Budesonide 0.032 MG/ACTUAT Nasal [place] [facility] Budesonide 1 12:00:00 AM EDT active [facility] ([facility]) doxycycline hyclate 100 MG Oral Tablet Doxycycline Hyc late 100 MG Oral Tablet Doxycycline Hyclate 100 MG Oral Tablet 03/05/2021 12:00:00 AM EDT 1 active doxycycline hyclate 100 MG Oral Tablet [facility] ([facility]) 24 HR Metformin hydrochloride 500 MG Ext ended Release Oral Tablet metFORMIN HCl ER 500 MG Oral Tablet Extended Release 24 Hour metFORMIN HCl ER 500 MG Oral Tablet Extended Release 24 Hour 01/11/2021 12:00:00 AM EDT 3 active 24 HR metformin hydrochloride 500 MG Extended Release Oral Tablet [facility] ([facility]) benzonatate 100 MG Oral Capsule Benzonatate 100 MG Ora l Capsule Benzonatate 100 MG Oral Capsule 07/19/2020 12:00:00 AM EST 1 ab orted benzonatate 100 MG Oral Capsule [facility] ([facility]) Codeine Phosphate 2 MG/ML / Guaifenesin 20 MG/ML Oral Solution guaiFENesin- Codeine 100-10 MG/5ML Oral Syrup guaiFENesin-Codeine 100-10 MG/5ML Oral Syrup 07/19/2020 12:00:00 AM EST aborted codeine phosphate 2 MG/ML / guaifenesin 20 MG/ML Oral Solution [facility] ([facility]) 60 ACTUAT Albuterol 0.09 MG/ACTUAT Meter ed Dose Inhaler Albuterol Sulfate HFA 108 (90 Base) MCG/ACT Inhalation Aerosol Solution Albuterol Sulfate HFA 108 (90 Base) MCG/ACT Inhalation Aerosol Solution 07/15/2020 12:00:00 AM EST aborted [id number] ACTUAT albuterol 0. 09 MG/ACTUAT Metered Dose Inhaler [place] ([facility]) Prednisone 10 MG Oral Tablet predniSONE 10 MG Oral Tab let predniSONE 10 MG Oral Tablet 07/15/2020 12:00:00 AM EST aborted prednisone 10 MG Oral Tablet [facility] ([facility]) Amoxicillin 875 MG / Clavulanate 125 MG Oral Tablet Amoxicillin-Pot Clavulanate 875-125 MG Oral Tablet Amoxicillin-Pot Clavulanate 875-125 MG Oral Tablet 07/15/2020 12:00:00 AM EST 1 aborted amoxicillin 875 MG / clavulanate 125 MG Oral Tablet [place] ([facility]) EQL Fluticasone Propionate 50 MCG/ACT Nasal Suspension EQL Fluticasone Propionate 50 MCG/ACT Nasal Suspension 07/09/2020 12:00:00 AM EST aborted EQL Fluticasone Propionate [address] ([facility]) Amoxicillin 875 MG Oral Tablet Amoxicillin 875 MG Oral Table t 06/30/2020 12:00:00 AM EST active amoxicil boris 875 MG Oral Tablet [facility] ([facility]) doxycycline hyclate 100 MG Oral Capsule Doxycycline Hyclate 06/26/2020 12:00:00 AM EST active [facility] ([facility]) Prednisone 20 MG Oral Tablet Prednisone 06/26/2020 12:00:00 AM EST active [facility] ([facility]) 20 mg 06/26/2020 12:00:00 AM EST tablet 10 TAKE 1 TABLET TWICE A DAY FOR FIVE DAYS TAKE 1 TABLET TWICE A DAY FOR FIVE DAYS SOLD: 06/26/2020 [facility] doxycycline hyclate 100 MG Oral Capsule DOXYCYCLINE HYCLATE 06/26/2020 12:00:00 AM EST capsule 14 TAKE ONE CAPSULE TWICE A DAY FOR 7 DAYS. TAKE WITH FOOD TAKE ONE CAPSULE TWICE A DAY FOR 7 DAYS. TAKE WITH FOOD SOLD: 06/26/2020 [facility] benzonatate 100 MG Oral Capsule Benzonatate 06/20/2020 12:00:00 AM EDT ORAL active [facility] ([facility], [facility]) No Active Medications 06/20/2020 12:00:00 AM EDT completed [facility] ([facility], [facility]) Triamcinolone Acetonide 0.25 MG/ML Topic al Cream Triamcinolone Acetonide 0.025% External Cream Triamcinolone Acetonide 0.025% External Cream 01/10/20 12:00:00 AM EDT aborted triamcinolone ac etonide 0.25 MG/ML Topical Cream [facility] ([facility]) Insurance Providers Payer name Policy type / Coverage type Policy ID Covered democrat ID Covered democrat's relationship to connolly Policy Connolly Plan Information [employer] Other 0 [id number] Self 0 [employer] Other 0 [id number] Self 0 [employer] Other 0 [id number] Self 0 [employer] Other 0 [id number] Self 0 [employer] [place] Other 0 [id number] Self 0 [employer] [place] Other 0 [id number] Self 0 [employer] [place] Other 0 [id number] Self 0 UMR [id number] Flori [id number] [employer] [place] Other 0 [id number] Self 0 [employer] [place] Other 0 [id number] Self 0 [employer] [place] Other 0 [id number] Self 0 [employer] [place] Other 0 [id number] Self 0 UMR U [id number] Self [id number] UMR U [id number] Self [id number] [employer] [place] Other 0 [id number] Self 0 [employer] [place] Other 0 [id number] Self 0 [employer] [place] Other 0 [id number] Self 0 [employer] [place] Other 0 [id number] Self 0 [employer] [place] Other 0 [id number] Self 0 [employer] [place] Other 0 [id number] Self 0 [employer] / UMR F [id number] SELF [id number] UMR U [id number] Self [id number] UMR F [id number] SELF [id number] SELF PAY UMR [id number] SP [id number] BLUE CROSS [id number] MOTHER [id number] UMR HEA [id number] S [id number] [employer] [id number] SP [id number] [employer] / UMR F [id number] SELF [id number] 1 [facility] [employer] [id number] SELF [id number] UMR [facility] [id number] SP [id number] Problems, Conditions, and Diagnoses Code Display Name Description Problem Type Effective Dates Data Source(s) miscarriage miscarriage Diagnosis 01/15/2021 09:40:[address] [facility] O03.9 Complete or unspecified spontaneous abor tion without complication Complete or unspecified spontaneous without complication Diagnosis 11/09/2020 08:06:[address] [facility] E28.2 Polycystic ovarian syndrome Polycystic ovarian syndrom e Diagnosis 09/07/2020 08:07:10 AM [facility] E66.3 Overweight Overweight Diagnosis 09/07/2020 08:07:10 AM [facility] Z82.49 Family history of ischemic h eart disease and other diseases of the circulatory system Family history of ischemic heart disease Diagnosis 09/07/2020 08:07:10 AM [facility] R00.2 Palpitations Palpitations Diagnosis 09/07/2020 08:07:10 A M [facility] R94.31 Abnormal electrocardiogram [ECG] [EKG] A bnormal electrocardiogram (ECG) (EKG) Diagnosis 09/07/2020 08:07:10 AM [facility] R06.02 Shortness of breath Shortness of breath Diagnosis 0 09/07/2020 08:07:10 AM [facility] R07.2 Precordial pain Precordial pain Diagnosis 09/07/2020 08:0 7:10 AM [facility] J40 Bronchitis, not specified as acute or ch ronic J40 - Bronchitis, not specified as acute or chronic Diagnosis 07/15/2020 11:46:00 PM EST [facility] R06.02 Shortness of breath R06.02 - Shortness of breath Diagn osis 07/15/2020 03:04:00 PM EST [facility] J30.0 Vasomotor rhinitis Vasomotor rhinitis Problem 12:00:00 AM EDT [facility] ([facility]) [id number] Allergic rhinitis due to house dust mite Allergic rhinitis due to house dust mite Problem 05/31/2021 12:00:00 AM EDT [facility] ([facility]) Note: 2+ reaction to dust mites on intra dermal test. J30.1 Allergic rhinitis due to pollen Allergic rhinitis due to pollen Problem 05/31/2021 12:00:00 AM EDT [facility] ([facility] ) Note: 3+ positive reaction to tree mix # 1 (birch, oak, maple) on intradermal test. 785.1 Palpitations Palpitations Finding 01/11/2021 02:51:00 P M EDT [facility] 477.9 Allergic Rhinitis Allergic Rhinitis Problem 01/11/2021 02:51:00 PM EDT [facility] ([facility]) 785.1 Palpitations Palpitations Finding 01/11/2021 02:51:00 P M EDT [facility]ALIO ([facility]) 477.9 Allergic Rhinitis Allergic Rhinitis Problem 01/11/2021 02:51:00 PM EDT [facility]ALIO ([facility]) M72.2 Plantar fascial fibromatosis Plantar fascial fibromato sis Problem 11/15/2020 12:00:00 AM EDT MEDENT ([facility] S92.315D Closed fracture of first metatarsal bone Closed fracture of first metatarsal bone Problem 11/15/2020 12:00:00 AM EDT MEDENT ([facility] O02.1 Missed Missed Problem 11/09/2020 08:0 8:00 AM EDT [facility]ALIO ([facility]) O02.1 Missed Missed Problem 11/09/2020 08:0 8:00 AM EDT ROSALIO ([facility]) O02.1 Missed Missed Problem 11/09/2020 08:0 8:00 AM EDT [facility] O02.1 Missed Missed Problem 11/09/2020 08:0 8:00 AM EDT ROSALIO ([facility]) M79.675 Pain in limb Pain in limb Problem 10/01/2020 12:0 0:00 AM EST - 11/15/2020 12:00:00 AM EDT MEDENT ([facility] S90.112A Contusion of toe Contusion of toe Problem 021 12:00:00 AM EST - 11/15/2020 12:00:00 AM EDT MEDENT ([facility] [id number] Gestation less than 9 weeks (finding) Pr egnant Weeks of Gestation - Less Than 8 Weeks Finding 09/16/2020 11:09:00 AM EST - 11/09/2020 08:08:00 AM EDT ROSALIO ([facility]) 339.89 Headache Syndromes Headache Syndromes Finding 0 12:00:00 AM EST [facility] ([facility] 339.89 Headache Syndromes Headache Syndromes Finding 0 12:00:00 AM EST [facility] ([facility] 339.89 Headache Syndromes Headache Syndromes Finding 0 12:00:00 AM EST [facility] 339.89 Headache Syndromes Headache Syndromes Finding 0 12:00:00 AM EST [facility] ([facility] 339.89 Headache Syndromes Headache Syndromes Finding 0 12:00:00 AM EST [facility] 339.89 Headache Syndromes Headache Syndromes Finding 0 12:00:00 AM EST ROSALIO ([facility]) 794.31 Abnormal electrocardiogram [ECG] [EKG] A bnormal electrocardiogram [ECG] [EKG] Problem 07/21/2020 12:00:00 AM EST ROSALIO ([facility]) 794.31 Abnormal electrocardiogram [ECG] [EKG] A bnormal electrocardiogram [ECG] [EKG] Problem 07/21/2020 12:00:00 AM EST ROSALIO ([facility]) 794.31 Abnormal electrocardiogram [ECG] [EKG] A bnormal electrocardiogram [ECG] [EKG] Problem 07/21/2020 12:00:00 AM EST [facility]AL[facility] ([facility]) 794.31 Abnormal electrocardiogram [ECG] [EKG] A bnormal electrocardiogram [ECG] [EKG] Problem 07/21/2020 12:00:00 AM EST [facility]ALIO ([facility]) 794.31 Abnormal electrocardiogram [ECG] [EKG] A bnormal electrocardiogram [ECG] [EKG] Problem 07/21/2020 12:00:00 AM EST ROSALIO ([facility]) 794.31 Abnormal Electrocardiogram Abnormal Electrocardiogram Finding 07/21/2020 12:00:00 AM EST ROSALIO ([facility]) 794.31 Abnormal electrocardiogram [ECG] [EKG] A bnormal electrocardiogram [ECG] [EKG] Problem 07/21/2020 12:00:00 AM EST ROSALIO ([facility]) Surgeries/Procedures Procedure Description Date Indications Data Source(s) PERCUTANEOUS TESTS W/ALLERGENIC EXTRACTS 05/31/2021 12 :00:00 AM EDT MEDENT ([facility]) INTRACUTANEOUS TESTS W/ALLERGENIC EXTRACTS 05/31/2021 12:00:00 AM EDT MEDENT ([facility]) OFFICE OUTPATIENT NEW 30 MINUTES 05/31/2021 12:00:00 A M EDT MEDENT ([facility]) OFFICE OUTPATIENT VISIT 15 MINUTES 05/24/2021 12:00:00 AM EDT MEDENT ([facility]) Summary provided electronically in CCDA format & reasonable certainty of receipt 03/08/2021 12:00:00 AM EDT - 03/08/2021 12:00:00 AM EDT ROSALIO ([facility]) drug and/or alcohol abuse structured scr eening and brief intervention 03/08/2021 : Prescreening Completed - No Further Screening Indicated 03/08/2021 12:00:00 AM EDT - 03/08/2021 12:00:00 AM EDT ROSALIO ([facility]) records management 03/08/2021 - Chart Prep Performed 03/08/2021 12:00:00 AM EDT - 03/08/2021 12:00:00 AM EDT ROSALIO ([facility] ) Transition in care medication list update 03/08/2021 12:00:00 AM EDT - 03/08/2021 12:00:00 AM EDT ROSALIO ([facility]) continue current medication unless otherwise stated 03/08/2021 12:00:00 AM EDT - 03/08/2021 12:00:00 AM EDT ROSALIO ([facility] ) Summary provided electronically in CCDA format & reasonable certainty of receipt 01/11/2021 12:00:00 AM EDT - 01/11/2021 12:00:00 AM EDT ROSALIO ([facility]) Clinical summary provided to patient 12:00:00 AM EDT - 01/11/2021 12:00:00 AM EDT ROSALIO ([facility]) duration of the encounter 0.0 min 2020 12:00:00 AM EDT - 01/11/2021 12:00:00 AM EDT ROSALIO ([facility]) Transition in care medication list update 01/11/2021 12:00:00 AM EDT - 01/11/2021 12:00:00 AM EDT ROSALOI ([facility]) RADEX FOOT COMPLETE MINIMUM 3 VIEWS 12/01/2020 12:00:0 0 AM EDT MEDENT ([facility] Dilation of cervix uteri and curettage o f uterus for removal of missed (procedure) History of surgical treatment of missed by dilation and curettage 10/13/2020 7 weeks 11/09/2020 12:00:00 AM EDT GREE NWAY ([facility]) Dilation of cervix uteri and curettage o f uterus for removal of missed (procedure) History of surgical treatment of missed by dilation and curettage 10/13/2020 7 weeks 11/09/2020 12:00:00 AM EDT GREE NWAY ([facility]) Dilation of cervix uteri and curettage o f uterus for removal of missed (procedure) History of surgical treatment of missed by dilation and curettage 10/13/2020 7 weeks 11/09/2020 12:00:00 AM EDT JOSE MUELLER ([facility]) Dilation of cervix uteri and curettage o f uterus for removal of missed (procedure) History of surgical treatment of missed by dilation and curettage 10/13/2020 7 weeks 11/09/2020 12:00:00 AM EDT JOSE MUELLER ([facility]) RADEX FOOT COMPLETE MINIMUM 3 VIEWS 11/03/2020 12:00:0 0 AM EDT MEDENT ([facility] Endoscopy Nasal Diagnostic 09/07/2020 12:00:00 AM EST MEDENT ([facility], ) Noninvasive Ear or Pulse Oximetry for Oxygen Saturatio n; Mul Noninvasive Ear or Pulse Oximetry for Oxygen Saturation; Mul 07/15/2020 12:00:00 AM EST ROSALIO ([facility]) Electrocardiogram, Routine Ecg With At Least 12 Leads; Shayla Electrocardiogram, Routine Ecg With At Least 12 Leads; Shayla 07/15/2020 12:00:00 AM EST ROSALIO ([facility]) Noninvasive Ear or Pulse Oximetry for Oxygen Saturatio n; Mul Noninvasive Ear or Pulse Oximetry for Oxygen Saturation; Mul 07/15/2020 12:00:00 AM EST [facility] Ekg With Interpretation and Report Ekg With Interpretation a nd Report 07/15/2020 12:00:00 AM EST ROSALIO ([facility]) Results ID Date Data Source [id number] 05/24/2021 12:00:00 AM EDT [facility] Name Value Range Interpretation Code Description Data Geraldine rce(s) Supporting Document(s) SARS-CoV2 Rapid Antigen Negative [facility] This lab was ordered by [facility] and reported by [facility]. ID Date Data Source [id number] 11/09/2020 11:29:17 AM EDT [facility] Name Value Range Interpretation Code Description Data Geraldine rce(s) Supporting Document(s) Progress Note [facility] [id number] lbm [file] [id number]= ID Date Data Source [id number] 10/14/2020 07:40:[address] [facility] [place], [place] [address]PETTSGS NAME: JOSE LUIS STEVENSDATE OF : 1985REPORT: OPERATIONPATIENT NUMBER: [id number] STATUS: SDMEDICAL RECORD NUMBER: [id number] OF ADMISSION: 10/13/2020ATE OF DISCHARGE:ROOM: 01DATE OF PROCEDURE: 10/13/2020REOPERATIVE DIAGNOSIS: Missed at 7wk gestation.POSTOPERATIVE DIAGNOSIS: Missed at 7wk gestation.PROCEDURE: Suction D and C.SURGEON: Sheridan Birmingham MDRESIDENT: Myra Rivera MD, PGY-1ANESTHESIA: MAC.IV FLUIDS: 800 mL helen talloid.ESTIMATED BLOOD LOSS: Minimal.URINE OUTPUT: 50 cc.SPECIMEN: Products of conception.COMPLICATIONS: None.FINDINGS: A 7-week size anteverted uterus with cervix closed. Moderateamount of products of conception.CONDITION: Stable to recovery room.PROCEDURE IN DETAIL: The risks, benefits, alternatives and indications toprocedure were discussed with the patient including, but not limited toinfection, bleeding, damage to nearby organs, and uterine perforation. Shevoiced understanding of the procedure and signed the consent. The patientwas taken to the OR, where MAC anesthesia was administered withoutdifficulty. She was placed in the dorsal lithotomy position in [facility] and exam under anesthesia revealed a 7-week size anteverted uteruswith cervix closed. The patient was prepared and draped in the normalsterile fashion. A weighted speculum was inserted into the posterioraspect of the vagina. A single tooth tenaculum was used to grasp theanterior lip of the cervix. A cervical block was performed using 10 cc of1 percent lidocaine. The cervix was dilated with Hegar dilator toaccommodate an 8 mm suction curette. An 8 mm suction curette was advancedto the uterine fundus. The suction was then started. The products ofconception were evacuated with the curette rotating in an outward movement.The suction curette was then advanced to the uterine fundus again and in asimilar manner the suction was started and the uterus was evacuated withthe curette rotating in an outward movement. The suction curette was thenremoved. A gentle sharp curettage was then performed with a large curette.The suction curette was then reintroduced to clear the uterus. A grittyfeeling was noted on all aspects of the uterine wall with both the sharpcurette and suction curette. The tenaculum was then removed from cervixand good hemostasis was noted. The patient tolerated the procedure well.The instrument and sponge counts were correct x2. The patient was awakenedfrom MAC and taken to the recovery room in a stable condition. The patientwill go home after recovering from anesthesia and meeting all requirementsfor discharge. She was given instructions regarding her followup visit andshe was given a prescription for doxycycline for infection prophylaxis. was present for the entire procedure. Products of conception sent for pathology and Anora genetic testing. DICTATED BY: Myra Rivera, MDDictated: 10/13/2020 10:59DT: 10/13/2020 16:43Job #: [id number]: [facility] computer generated reports are not confirmed orauthenticated unless they are signed by the providerElectronically Authenticated and Edited by:Myra Rivera MD On 10/14/2020 12:42 PM ESTElectronically Authenticated and Edited by:SHERIDAN BIRMINGHAM MD On 10/14/2020 07:40 PM EST Name Value Range Interpretation Code Description Data Geraldine rce(s) Supporting Document(s) ID Date Data Source [id number] 10/14/2020 04:43:15 AM EST [facility] [place] [facility] TESTING SITE PERFORMED AT [address] [place], [place] [address]UNIT NUMBER [id number] COMPONENT TYPE Rh IMMUNE GLOBULINUNIT DIVISION 00STATUS OF UNIT TRANSFUSEDTRANSFUSION STATUS OK TO TRANSFUSE Name Value Range Interpretation Code Description Data Geraldine rce(s) Supporting Document(s) ID Date Data Source [id number] 10/27/2020 04:56:16 PM EST Lab [facility] [place], [place] [address]Tel# SURGICAL PATHOLOGY REPORTReceived:10/13/2020ccession #:[id number](s) Received: A: Products of conception for Anora testingClinical Diagnosis and History: Missed . GROSS DESCRIPTION: Specimen received fresh for Anora testing. Received in an evacuationdevice are multiple irregular feldman-pink portions of soft tissue aggregating5.0 x 3.0 x 1.0 cm. There is spongy feldman-pink soft tissue identifiedconsistent with chorionic villi. A portion of the chorionic villi issubmitted for Anora testing using the sterile technique. A section issubmitted for microscopic examination. (1 block) jrodkajaycee/radha DIAGNOSIS:PRODUCTS OF CONCEPTION CONSISTING OF IMMATURE CHORIONIC VILLI AND DECIDUA.Reported: 10/14/2020 10:03Electronically Signed Out By Duarte Beauchamp M.D. jzwPathology Associates of Saint HelenaSanjuMaricruzThis report may include one or more immunohistochemical or in-situhybridization results. Testing has been developed and the performancecharacteristics were determined by [facility] [place] [facility] as requiredby [place] '88 regulations. The tests may not have been approved for a givenspecific use by the US Food and Drug Administration, but the FDA hasdetermined that such approval is not necessary for clinical use.ICD9 codes: O02.9Procedures/AddendaCytogenetics Date Ordered: 10/27/2020 Status: Signed Out Date Complete: 10/27/2020 By: Jaleel Owens Date Reported: 10/27/2020 InterpretationThe case was sent to [employer] for Anora testing. The results are asfollows:RESULT: Abnormal FemaleMICROARRAY RESULTS: arr 11q23.1 q25(111,800,000_131,600,000)x23,11q25(131,600,000_134,400,000)x1See attached outside report. Results-Comments{Not Entered} Duarte Beauchamp M.D. Name Value Range Interpretation Code Description Data [facility] Supporting Document(s) ID Date Data Source [id number] 10/12/2020 05:27:56 PM EST [facility] [place] [facility] SPEC EXP DATE 1PATI ENT ABO/Rh A NEGATIVEANTIBODY SCREEN NEGATIVETESTING SITE PERFORMED AT [address] [place], [place] [address]OOD BANK COMMENT BLOOD TYPE CONFIRMED. Name Value Range Interpretation Code Description Data [facility] rce(s) Supporting Document(s) ID Date Data Source [id number] 10/12/2020 01:25:32 PM EST Lab [facility] Name Value Range Interpretation Code Description Data [facility] rce(s) Supporting Document(s) WBC 9.4 10*3/uL (4.1-11.0) Lab [facility] C [place] RBC 4.30 10*6/uL (4.00-5.40) Lab [facility]SE [facility] HGB 12.9 g/dL (12.0-16.0) Lab [facility] Y HCT 38.9 % (36.0-47.0) [facility] [place] of [facility] Y PERFORMED AT [address] [place] [address] MCV 90.4 fL (80.0-95.0) [facility] [place] of [facility] Y MCH 30.0 pg (27.0-32.0) [facility] [place] of [facility] Y MCHC 33.2 g/dL (32.0-36.0) [facility] [place] of [facility] Y RDW 14.7 % (10.5-14.5) H [facility] [place] of [facility] Y PLT 188 10*3/uL (150-450) [facility] [place] of [facility] Y MPV 8.3 fL (7.1-10.7) [facility] [place] of [facility] ID Date Data Source [id number] 10/12/2020 12:50:00 PM EST [facility] Name Value Range Interpretation Code Description Data Geraldine rce(s) Supporting Document(s) SARS coronavirus 2 RNA [Presence] in Res piratory specimen by ANGELICA with probe detection NOT DETECTED [facility] This lab was reported by [facility] [place] [facility]. ID Date Data Source [id number] 10/12/2020 04:02:42 PM EST [facility] [place] of [facility] Name Value Range Interpretation Code Description Data Geraldine rce(s) Supporting Document(s) SPECIMEN DESCRIPTION Lab [facility] COVID19 RESULT (NDET) [facility] [place] of [facility] NEGATIVE COVID-19 RESULTS DONOT PRECLUDE COVID-2019 INFECTION ANDSHOULD NOT BE USED THE SOLE BASISFOR PATIENT MANAGEMENT DECISIONS.THIS ASSAY AMPLIFIES AND DETECTS THE TARGETRNA USING ISOTHERMAL HELICASE DEPENDENTAMPLIFICATION.TESTING PERFORMED ON THE SAN[place].THE U.[place]. FDA HAS MADE THIS TEST AVAILABLEUNDER AN EMERGENCY USE AUTHORIZATION(EUA) FOR THE DETECTION AND/OR DIAGNOSISOF THE VIRUS THAT CAUSES COVID-19. FIRST TEST [facility] [place] of [facility] SYMPTOMATIC [facility] [place] [facility] [place] DATE OF SYMPT ONSET Lab [facility] HOSPITALIZED [facility] [place] of [facility] ICU [facility] [place] of [facility] CONGREGATE CARE SET [facility] [place] of [facility] ID Date Data Source [id number] 10/12/2020 02:32:35 PM EST [facility] - CORE SPEC EXP DATE 10/15/2020ATI ENT ABO/Rh A NEGATIVEANTIBODY SCREEN NEGATIVETESTING SITE PERFORMED AT [address] [place] [address]SSYZA BANK COMMENT BLOOD TYPE CONFIRMED. Name Value Range Interpretation Code Description Data Geraldine rce(s) Supporting Document(s) WBC 7.3 10*3/uL (4.1-11.0) [facility] [place] - CORE RBC 4.34 10*6/uL (4.00-5.40) Laboratory [facility] - CORE HGB 13.2 g/dL (12.0-16.0) [facility] - C[facility] HCT 39.1 % (36.0-47.0) [facility] - [facility] MCV 90.0 fL (80.0-95.0) [facility] - [facility] MCH 30.4 pg (27.0-32.0) [facility] - [facility] MCHC 33.7 g/dL (32.0-36.0) [facility] - C[facility] RDW 15.1 % (10.5-14.5) H [facility] [place] - CORE PLT 193 10*3/uL (150-450) [facility] - C[facility] MPV 9.1 fL (7.1-10.7) [facility] [place] [facility] [place] - CORE NEUT % 57.1 % (35.0-75.0) [facility] - CORE LYMPH % 35.6 % (16.0-52.0) [facility] - CORE MONO % 6.3 % (0.0-8.0) [facility] [place] [facility] [place] - CORE EOS % 0.7 % (0.0-5.0) [facility] [place] [facility] [place] - CORE BASO % 0.3 % (0.0-4.0) [facility] [place] [facility] [place] - CORE NEUT # 4.2 10*3/uL (1.8-7.7) [facility] - CORE LYMPH # 2.6 10*3/uL (1.2-4.8) [facility] - CORE MONO # 0.5 10*3/uL (0.0-0.8) [facility] - CORE Eosinophils [#/volume] in Blood by Automated count 0.1 10*3/uL (0.0-0 .5) [facility] [place] of [facility] - CORE BASO # 0.0 10*3/uL (0.0-0.2) [facility] [place] - CORE ID Date Data Source [id number] 10/12/2020 03:09:30 PM EST [facility] - CORE SPEC EXP DATE 10/15/2020ATI ENT ABO/Rh A NEGATIVEANTIBODY SCREEN NEGATIVETESTING SITE PERFORMED AT [address] [place], [place] [address]OOD BANK COMMENT BLOOD TYPE CONFIRMED. Name Value Range Interpretation Code Description Data Geraldine rce(s) Supporting Document(s) SODIUM 137 mmol/L (136-145) [facility] [place] of [facility] - CORE POTASSIUM 4.4 mmol/L (3.6-5.2) [facility] [place] of Y - CORE CHLORIDE 105 mmol/L (100-108) [facility] [place] [facility] [place] - CORE CO2 25 mmol/L (22-31) [facility] [place] of Y - CORE ANION GAP 7 mmol/L (7-16) [facility] [place] of Y - CORE UREA NITROGEN 9 mg/dL (7-24) [facility] - CORE CREATININE 0.64 mg/dL (0.60-1.00) [facility] - CORE BUN/CREAT RATIO 14.1 RATIO (10.0-20.0) [facility] [place] of Y - CORE GLUCOSE 93 mg/dL (70-99) [facility] [place] of Y - CORE CALCIUM 9.0 mg/dL (8.4-10.2) [facility] [place] of [facility] - CORE TOTAL PROTEIN 7.0 g/dL (6.4-8.2) [facility] - CORE ALBUMIN 3.8 g/dL (3.5-4.6) [facility] [place] [facility] - CORE GLOBULIN 3.2 g/dL (2.7-4.3) [facility] [place] [facility] - CORE ALB/GLOB RATIO 1.2 RATIO Laboratory [facility] - CORE ALKALINE PHOSPHATASE 46 U/L (45-117) [facility] [place] [facility] [place] - CORE BILIRUBIN,TOTAL 1.1 mg/dL (0.0-1.0) H Laboratory [facility] - CORE PLEASE NOTE:Total bilirubin results may be falselyelevated in patients taking Eltrombopag. AST (SGOT) 14 U/L (11-39) [facility] [place] [facility] ALT (SGPT) 25 U/L (12-78) [facility] [place] [facility] GFR >60 ml/min/1.73m2 (>59) Laboratory [facility] GFR ( AMER) >60 ml/min/1.73m2 (>59) [facility] [place] [facility] GFR INTERPRETATION [facility] [place] [employer] [facility] --NORMAL KIDNEY FUNCTION OR MILD DISEASE - GFR >OR= 60CHRONIC KIDNEY DISEASE - GFR 15 - 59RENAL FAILURE - GFR <15 Est. GFR calculation based on the MDRDstudy equation, which assumes a steadystate for creatinine. Est. GFR should notbe used for medication dosing. ID Date Data Source [id number] 10/12/2020 03:09:30 PM EST [facility] SPEC EXP DATE 1PATI ENT ABO/Rh A NEGATIVEANTIBODY SCREEN NEGATIVETESTING SITE PERFORMED AT [address] [place] [address] BANK COMMENT BLOOD TYPE CONFIRMED. Name Value Range Interpretation Code Description Data Geraldine rce(s) Supporting Document(s) HCG,QUANT PREG 03163 mU/mL [facility] INTERPRETATION:LESS THAN 6 NEGATIVE 6 - 10 BORDERLINE (SUGGEST REPEAT IN 48 HOURS) APPROX HCG RANGE WEEKS POST LMP 11 - 130 3 - 4 WEEKS 75 - 2600 4 - 5 WEEKS 850 - 93629 5 - 6 WEEKS 4000 - 076877 6 - 7 [id number] - 290799 7 - 12 [id number] - [id number] 12 - 16 WEEKS 1400 - 80970 16 - 29 WEEKS 940 - 23077 29 - 41 WEEKS ID Date Data Source [id number] 10/12/2020 05:46:31 PM EST [facility] [place] - CORE SPEC EXP DATE 10/15/2020ATI ENT ABO/Rh A NEGATIVEANTIBODY SCREEN NEGATIVETESTING SITE PERFORMED AT [address] [place] [address] BANK COMMENT BLOOD TYPE CONFIRMED. Name Value Range Interpretation Code Description Data Geraldine rce(s) Supporting Document(s) ID Date Data Source [id number] 09/10/2020 06:00:21 PM EST [facility] Name Value Range Interpretation Code Description Data Geraldine rce(s) Supporting Document(s) &PDF [facility] QNYFTp1tSpRBGsIv98/MLUuoEEWjj0RqPJwuTIa5TPirTQLiM3OjcOsnIXNVYPMJVNrQJWvBYSDkVQNw waW [file] AgICAgICAgICAgICAgICAgICAgICAgICAgICAgICAg ICAgICAgICAgICAgICAgICAgICAgICAgICAgICAgICAgICANCiAgICAgICAgICAgICAgICAgICAgICAg ICAgICAgICAgICAgICAgICAgICAgICAgICAgICAgICAgICAgICAgICAgICAgICAgICAgICAgICAgICAg ICAgICAgICAgICAgICAgICANCiAgICAgICAgICAgIC AgICAgICAgICAgICAgICAgICAgICAgICAgICAgICAgICAgICAgICAgICAgICAgICAgICAgICAgICAgIC AgICAgICAgICAgICAgICAgICAgICAgICAgICANCiAgICAgICAgICAgICAgICAgICAgICAgICAgICAgIC AgICAgICAgICAgICAgICAgICAgICAgICAgICAgICAg ICAgICAgICAgICAgICAgICAgICAgICAgICAgICAgICAgICAgICANCiAgICAgICAgICAgICAgICAgICAg ICAgICAgICAgICAgICAgICAgICAgICAgICAgICAgICAgICAgICAgICAgICAgICAgICAgICAgICAgICAg ICAgICAgICAgICAgICAgICAgICANCiAgICAgICAgIC AgICAgICAgICAgICAgICAgICAgICAgICAgICAgICAgICAgICAgICAgICAgICAgICAgICAgICAgICAgIC AgICAgICAgICAgICAgICAgICAgICAgICAgICAgICANCiAgICAgICAgICAgICAgICAgICAgICAgICAgIC AgICAgICAgICAgICAgICAgICAgICAgICAgICAgICAg ICAgICAgICAgICAgICAgICAgICAgICAgICAgICAgICAgICAgICAgICANCiAgICAgICAgICAgICAgICAg ICAgICAgICAgICAgICAgICAgICAgICAgICAgICAgICAgICAgICAgICAgICAgICAgICAgICAgICAgICAg ICAgICAgICAgICAgICAgICAgICAgICANCiAgICAgIC AgICAgICAgICAgICAgICAgICAgICAgICAgICAgICAgICAgICAgICAgICAgICAgICAgICAgICAgICAgIC AgICAgICAgICAgICAgICAgICAgICAgICAgICAgICAgICANCiAgICAgICAgICAgICAgICAgICAgICAgIC AgICAgICAgICAgICAgICAgICAgICAgICAgICAgICAg ICAgICAgICAgICAgICAgICAgICAgICAgICAgICAgICAgICAgICAgICAgICANCjw/jLJvW0wziUVaauA0 A6yjXo4MUn1ZXA9yv2PtKTGkVKsxnxErZffVAbWbXUWqVvrDOep8TQtyVR3HkZIhA0ZkM2MeEYwxYW1V MPIlUXWwyZOzWOZgZPZeGxO4QAEfURexFQ4KaNXtOP ivDEJwXEPbUF7TYNHaE232zsUoZR7ZLf8JDoTaRO8heb8CQNOgMUTrBryEFzk2SPhmQY8SxCIsB7HmoJ Gje6tPWzJxK7SVHCE8LTXzGc3EJBGbOjTtLJOfPSccPN9zVCRsVDKTfIqhzaT9LL1FZJ8zhmQqXM3CIm HnUd6tNr5DHuIlF5DzV6ChBLFaYCMAXIdlHX6FFJDt OIR7SGIwUCPwCIBHXiUiI72yKP1NG0Czf17kJgO4RPFiZaTxYPmrHO91sDugwkJmtIEhwNvuET1XPf6+ MKpkreItDciTJmujRMHTVrNtRQmZSfFoUFNtGLDdARKkYqI0QbNrTx9GMZZeWGJmELRrPmGtDYJxCECf DDelFPZyQVJ4SNL1ROQdMCPhJU1BCfVvYFOyYYMzNR foNMExQHWwpz8LOEDwSTHxSDH0CALoNRUbBVOkHBfdTZKtSAEcBni4AOPeJKGxEU3IWlRuXJTmPVCgMZ PxIWEtQIYucl1FQDUcZUIbMdj7ISHyASEvKPBnOUcmGOSfCTR5YLG5CZPaJTSoAX3YTbRuMSUmIMAmOf TeDQEnYLPipt4ERXXtMTUhEXF3WBCdDBXzNOEgTInh FSWwHLS3UEw2ZXLzHPWsWJ5YEcIoUATfJUM3CUPkKAXgKMYpee8QQLFiBYGsPAK1AMIpXPOgAWPvDWbs XKNmDIM5UxzdPOQfKFQwJM9GUpYxMYAxCXR6CZrmAEPbEDEpth7RGLPkCPJgZiS1BKCwPYUjVWShERj3 jxHthDMvUSy4ZR4XZ3UyvwPcKXkZBt6Pf073AMZ5HC IbSj1FY0xlFd2uJJGbRBCZIl3WSPi1XoYiGOI9AFalSDX3EGU1ZsPoQTB1Dps8MEJzLRrlVhI+IDwyMj NrHkLjIWNoLzNePiX5SQNoKjgvFUgwHaDkYQM0VO1vQFZFQr1+HPoirZAqzHfkCQACUqJ2XGRyVVnlZN VPRg0K ID Date Data Source [id number] 07/15/2020 03:29:00 PM EST [address] [address] Patient Name: Oralia Stevens Exam Date: 07/15/20 : 1985 Ordering Doctor: Raysa Martinez NP Attending Doctor: Raysa Martinez NP CC: EXAM:Sinuses Min 3V Comp CLINICAL INDICATION: SINUS PRESSURE/PAIN TECHNIQUE: Five x-rays of the paranasal sinuses were obtained. COMPARISON: None. FINDINGS: Paranasal sinuses are well-aerated. No air-fluid levels. No opacities. Unremarkable osseous structures. IMPRESSION: 1. Well-aerated paranasal sinuses. Professional interpretation performed by [facility] Medical Imaging at [facility] . End of diagnostic report: [id number] Signed: Amanuel Bowman MD 07/15/20 1539 Interpreted by: Amanuel BowmanTranscribed by: Amanuel Bowman Name Value Range Interpretation Code Description Data Geraldine rce(s) Supporting Document(s) ID Date Data Source [id number] 07/15/2020 03:08:00 PM EST [facility]AL[facility] ([facility] Name Value Range Interpretation Code Description Data Geraldine rce(s) Supporting Document(s) Reported Physicians See Note Reported Physicians CHURDAN ([facility]) Note: Reported Physicians:Ordering: Raysa HammondAttending: Raysa Martinez ID Date Data Source [id number] 07/15/2020 03:08:00 PM EST ROSALIO ([facility]) Name Value Range Interpretation Code Description Data Geraldine rce(s) Supporting Document(s) Bordetella pertussis [Presence] in Unspe cified specimen by Organism specific culture Not Detected BORDETELLA PERTUSSIS CHURDAN ([facility]) Note: Responsible Observer: BORDET PERTU SS BORDETELLA PERTUSSIS [phone] (A) BORDETELLA PARAPERTUS Not Detected BORDETELLA P ARAPERTUS [place] ([facility]) Note: Responsible Observer: BORD PAR IS1 001 BORDETELLA PARAPERTUS [phone] (A) CHLAMYDIA PNEUMONIAE Not Detected CHLAMYDIA PNE UMONIAE [place] ([facility]) Note: Responsible Observer: CHLMY PNEUMO SAUL CHLAMYDIA PNEUMONIAE [phone] (A) Adenovirus [Presence] in Unspecified specimen by Organ ism specific culture Not Detected ADENOVIRUS [place] ([facility]) Note: Responsible Observer: ADENOVIRUS A DENOVIRUS [phone] (A) CORONAVIRUS OC43 Not Detected CORONAVIRUS OC43 [facility] ([facility]) Note: This is NOT the novel coronavirus COVID-19Responsible Observer: CORONVIRUS OC43 CORONAVIRUS OC43 [phone] (A) CORONAVIRUS NL63 Not Detected CORONAVIRUS NL63 [place] ([facility]) Note: This is NOT the novel coronavirus COVID-19Responsible Observer: CORONVIRUS NL63 CORONAVIRUS NL63 [phone] (A) CORONAVIRUS 229E Not Detected CORONAVIRUS 229E [place] ([facility]) Note: This is NOT the novel coronavirus COVID-19Responsible Observer: CORONVIRUS 229E CORONAVIRUS 229E [phone] (A) INFLUENZA B Not Detected INFLUENZA B ROSALIO ([facility]) Note: Responsible Observer: INFLUENZA B INFLUENZA B [phone] (A) CORONAVIRUS HKU1 Not Detected CORONAVIRUS HKU1 [place] ([facility]) Note: This is NOT the novel coronavirus COVID-19Responsible Observer: CORONVIRUS HKU1 CORONAVIRUS HKU1 [phone] (A) Mycoplasma pneumoniae [Presence] in Unsp ecified specimen by Organism specific culture Not Detected MYCOPLASMA PNEUMONIAE [place] ([facility]) Note: The Respiratory Panel is a multip lexed nucleic acid/PCR test. A negative result does not rule out the presence of PCR inhibitors in the patient sample or assay-specific nucleic acid concentrations below the level of detection by the assay.Responsible Observer: MYCOP PNEUMONIA MYCOPLASMA PNEUMONIAE [phone] (A) HUMAN METAPNEUMOVIRUS Not Detected HUMAN METAPN EUMOVIRUS [place] ([facility]) Note: Responsible Observer: HUMAN METAPN EUV HUMAN METAPNEUMOVIRUS [phone] (A) INFLUENZA A Not Detected INFLUENZA A ROSALIO ([facility]) Note: Responsible Observer: INFLUENZA A INFLUENZA A [phone] (A) Parainfluenza virus 1 [Presence] in Unsp ecified specimen by Organism specific culture Not Detected PARAINFLUENZA VIRUS 1 [place] ([facility]) Note: Responsible Observer: PARAINFLU R 1 PARAINFLUENZA VIRUS 1 [phone] (A) Parainfluenza virus 2 [Presence] in Unsp ecified specimen by Organism specific culture Not Detected PARAINFLUENZA VIRUS 2 [place] ([facility]) Note: Responsible Observer: PARAINFLU R 2 PARAINFLUENZA VIRUS 2 [phone] (A) PARAINFLUENZA VIRUS 4 Not Detected PARAINFLUENZ A VIRUS 4 [place] ([facility]) Note: Responsible Observer: PARAINFLU R 4 PARAINFLUENZA VIRUS 4 [phone] (A) Parainfluenza virus 3 [Presence] in Unsp ecified specimen by Organism specific culture Not Detected PARAINFLUENZA VIRUS 3 ROSALIO ([facility]) Note: Responsible Observer: PARAINFLU R 3 PARAINFLUENZA VIRUS 3 [phone] (A) RESPIRATORY SYNCY VIR Not Detected RESPIRATORY SYNCY VIR [place] ([facility]) Note: Responsible Observer: RSV RESPIRAT ORY SYNCY VIR [phone] (A) HUMAN RHINOVIRUS/ENT Not Detected HUMAN RHINOVI GABI/ENT [place] ([facility]) Note: Responsible Observer: HMN RHINO/EN TER HUMAN RHINOVIRUS/ENT [phone] (A) ID Date Data Source [id number] 07/15/2020 03:08:00 PM EST CHURDAN ([facility]) Name Value Range Interpretation Code Description Data Geraldine rce(s) Supporting Document(s) Reported Physicians See Note Reported Physicians CHURDAN ([facility]) Note: Reported Physicians:Ordering: Raysa HammondAttending: Raysa Martinez ID Date Data Source [id number] 07/15/2020 03:08:00 PM EST CH[place]AN ([facility]) Name Value Range Interpretation Code Description Data Geraldine rce(s) Supporting Document(s) COVID 19 (RHEONIX) NOT-DETECTED COVID 19 (RHEONIX) [place]AN ([facility]) Note: The [employer] COVID-19 MDx Assay is an endpoint RT-PCR assay (MOLECULAR)intended for the qualitative detection of nucleic acid from SARS-CoV-2 in nasopharyngeal swabs. COVID testing using the [employer] analyzer was developed for the purpose of diagnostic testing during a declared public health emergency and has Emergency Use Authorization (EUA) from the FDA. The possibility of a false negative result should be considered if the patient's recent exposures or clinical presentation indicate that COVID-19 is likely, and diagnostic tests for other causes of illness (e.g., other respiratory illness) a re negative. If COVID-19 is still suspected based on exposure history together with other clinical findings, re-testing should be considered by healthcare providers in consultation with public health authorities.Responsible Observer: COVID 19 (R) COVID 19 (BANDAR) [phone] (A) ID Date Data Source [id number] 07/15/2020 03:08:00 PM EST [place] Name Value Range Interpretation Code Description Data Geraldine rce(s) Supporting Document(s) SARS-CoV-2 (COVID-19) N gene [Presence] in Nasopharynx by ANGELICA with probe detection [facility] This lab was ordered by [facility] and reported by [facility]. ID Date Data Source [id number] 07/16/2020 07:11:00 PM EST [facility] Name Value Range Interpretation Code Description Data Geraldine rce(s) Supporting Document(s) ADENOVIRUS Not Detected [facility]Detected [facility] CORONAVIRUS 229E Not Detected NotDetected [facility] This is NOT the novel coronavirus COVID -19 CORONAVIRUS HKU1 Not Detected [facility]Detected [facility] This is NOT the novel coronavirus COVID -19 CORONAVIRUS NL63 Not Detected [facility]Detected [facility] This is NOT the novel coronavirus COVID -19 CORONAVIRUS OC43 Not Detected [facility]Detected [facility] This is NOT the novel coronavirus COVID -19 HUMAN METAPNEUMOVIRUS Not Detected NotDetected [facility] HUMAN RHINOVIRUS/ENT Not Detected NotDetected [facility] INFLUENZA A Not Detected NotDetected [facility] INFLUENZA B Not Detected NotDetected [facility] PARAINFLUENZA VIRUS 1 Not Detected NotDetected [facility] PARAINFLUENZA VIRUS 2 Not Detected NotDetected [facility] PARAINFLUENZA VIRUS 3 Not Detected NotDetected [facility] PARAINFLUENZA VIRUS 4 Not Detected NotDetected [facility] RESPIRATORY SYNCY VIR Not Detected NotDetected [facility] BORDETELLA PARAPERTUS Not Detected NotDetected [facility] BORDETELLA PERTUSSIS Not Detected [facility]Detected [facility] CHLAMYDIA PNEUMONIAE Not Detected [facility]ed [facility] MYCOPLASMA PNEUMONIAE Not Detected [facility] The Respiratory Panel is a multiplexed nucleic acid/PCR test. A negative result does not rule out the presence of PCR inhibitors in the patient sample or assay-specific nucleic acid concentrations below the level of detection by the assay. ID Date Data Source [id number] 07/16/2020 07:11:00 PM [facility] Name Value Range Interpretation Code Description Data Geraldine rce(s) Supporting Document(s) COVID 19 (RHEONIX) NOT-DETECTED NOTDETECTED [facility] The [employer] COVID-19 MDx Assay is an en dpoint RT-PCR assay ([employer])intended for the qualitative detection of nucleic acid from SARS-CoV-2 in nasopharyngeal swabs. COVID testing using the [employer] analyzer was developed for the purpose of diagnostic testing during a declared public health emergency and has Emergency Use Authorization (EUA) from the FDA. The possibility of a false negative result should be considered if the patient's recent exposures or clinical presentation indicate that COVID-19 is likely, and diagnostic tests for other causes of illness (e.g., other respiratory illness) are negative. If COVID-19 is still suspected based on exposure history together with other clinical findings, re-testing should be considered by healthcare providers in consultation with public health authorities. ID Date Data Source [id number] 05/25/2020 07:44:00 AM EDT [address] [address] NAME: JOSE LUIS STEVENSDATE OF : 1985REPORT: OPERATIONPATIENT NUMBER: [id number] STATUS: SDMEDICAL RECORD NUMBER: [id number] OF ADMISSION: 05/19/2020DATE OF DISCHARGE: 05/19/2020DATE OF PROCEDURE: 05/19/2020PREOPERATIVE DIAGNOSIS: Retained products of conception.POSTOPERATIVE DIAGNOSIS: Retained products of conception.OPERATIVE PROCEDURE: Suction and dilatation and curettage.SURGEON: Amirah Jeffers MDASSISTANT: Leo Tate MDIV FLUIDS: 700cc LR.URINE OUTPUT: 400cc.ESTIMATED BLOOD LOSS: Minimal.SPECIMEN: Products of conception.COMPLICATIONS: None.PROCEDURE: The patient was brought to the operating room and placed underMAC anesthesia. She was placed in dorsal lithotomy position with candycane stirrups. She was prepped and draped in the usual sterile fashion.Exam under anesthesia was performed and it was determined that a size 8curette would be appropriate. The bladder was drained of 400 cc of urine.Silva speculums were placed. The anterior lip of the cervix was graspedwith a single-tooth tenaculum. A paracervical block was done using 1percent lidocaine plain, 5 cc injected into the 4 o'clock position and 5 ccinjected into the 8 o'clock position. Hegar dilators were used. Thecervix was dilated up to size 8. The Hegar dilator was also used to soundthe uterus. It was sounded to approximately 11 cm. A size 8 suctioncurette was used. The retained products were evacuated out of theintrauterine cavity in three passes after which a gritty texture was feltand heard in all four quadrants. The suction curette was removed from theuterus. The tenaculum was removed. The tenaculum sites were found to behemostatic. All instruments were removed from the uterus and the vagina.Upon repeat bimanual exam, the uterus was found to be round and contracted. The patient was awakened and transported to the recovery room in stable condition.DICTATED BY: Leo Tate MDDictated: 05/19/2020 15:11DT: 05/19/2020 16:03Job #: [id number]: [facility] computer generated reports are not confirmed orauthenticated unless they are signed by the providerElectronically Authenticated and Edited by:Leo Tate MD On 05/21/2020 08:44 AM EDTElectronically Authenticated by:AMIRAH JEFFERS MD On 05/25/2020 07:44 AM EDT Name Value Range Interpretation Code Description Data Geraldine rce(s) Supporting Document(s) ID Date Data Source [id number] 05/21/2020 10:36:44 AM EDT Lab [place] [facility] LAB[facility]ORY [facility] [place], [place] [address]Ynd# SURGICAL PATHOLOGY REPORTPatient Name:JOSE LUIS STEVENSDOB:1985Received:05/20/2020Accession #:[id number](s) Received: A: POCClinical Diagnosis and History: Retained POC. DIAGNOSIS:PRODUCTS OF CONCEPTION FEW CHORIONIC VILLI AND DECIDUA, CONSISTENT WITHPRODUCTS OF CONCEPTION. GROSS DESCRIPTION: Specimen received in formalin in an evacuation device labeled "productsof conception" is a 12.0 x 4.0 x up to 1.5 cm aggregate of multipleirregular soft to rubbery fragments of red-efldman to red-brown tissue admixedwith a small amount of blood clot and blood tinged mucoid material. Someof the soft tissues appear spongy and consistent with chorionic villi. Embryonic tissue is not seen grossly. Sections are submitted formicroscopic examination. (1 block) [id number]/tbsReported: 05/21/2020Electronically Signed Out By Prashant Diaz MD jmdPathology Associates [place], [place] [address]Technical component performed at [facility], Histopathology, [address] [place] [address], [facility].Rep orted at [facility], [address] [place] [address], [facility].This report may include immunohistochemical or in-situ hybridizationresults. Testing was developed and the performance characteristicsdetermined by [facility], as required byCLIA '88. The FDA has determined that approval for specific use is notnecessary for clinical use. The quality of Hematoxylin and Eosin stainsand as applicable, for all immunohistochemical and/or special stains,including positive and negative controls, were reviewed and consideredappropriate.ICD codes: O03.4CPT4 codes: A: 04698V Name Value Range Interpretation Code Description Data [facility](s) Supporting Document(s) ID Date Data Source [id number] 05/18/2020 02:10:00 PM EDT [facility] Name Value Range Interpretation Code Description Data Geraldine [facility](s) Supporting Document(s) SARS coronavirus 2 RNA [Presence] in Res piratory specimen by ANGELICA with probe detection [facility] This lab was reported by [facility] [place] [facility]. ID Date Data Source [id number] 05/19/2020 12:41:10 AM EDT [facility] Name Value Range Interpretation Code Description Data Geraldine e(s) Supporting Document(s) SPECIMEN DESCRIPTION Lab [facility] [place] COVID19 RESULT (NDET) Lab [place] of JOSE MANUEL THIS ASSAY AMPLIFIES AND DETECTSTHE TARG ET RNA USING REAL-TIME PCR.NEGATIVE 2019_NCOV RT-PCR RESULTS DONOT PRECLUDE 2019_NCOV INFECTION ANDSHOULD NOT BE USED THE SOLE BASISFOR PATIENT MANAGEMENT DECISIONS. COMMENT Lab [place] of [facility] LABORATORY [facility] APPROVED B Y THE [place]. THE [place] FOODAND DRUG ADMINISTRATION HAS NOT APPROVEDTHIS TEST. NEGATIVE RESULTS DO NOT [id number] INFECTION AND SHOULD NOT BEUSED THE SOLE BASIS FOR CLINICALDIAGNOSIS OR PATIENT MANAGEMENT DECISIONS.RESULTS EMAILED TO IC AT 7622. [phone]. FIRST TEST Lab [place] of [facility] [place] SYMPTOMATIC Lab [place] [facility] DATE OF SYMPT ONSET Lab [facility] [place] HOSPITALIZED Lab [place] of [facility] ICU Lab [place] of JOSE MANUEL CONGREGATE CARE SET Lab [facility] [place] Lab [place] ID Date Data Source [id number] 05/19/2020 09:32:40 AM EDT Laboratory [facility] SPEC EXP DATE 05/21/2020PATI ENT ABO/Rh A NEGATIVEANTIBODY SCREEN POSITIVETESTING SITE PERFORMED AT [address] [place] [address] [id number] IDENT ANTI-D PRESENT, POSSIBLY PASSIVELY ACQUIRED DUE TO RH IMMUNE GLOBULIN. Recent (w/i 6 months) RhIg administration confir med. Name Value Range Interpretation Code Description Data Geraldine rce(s) Supporting Document(s) TYPE AND SCREEN Laboratory [facility] of [facility] PATIENT ABO/Rh A NEGATIVE Procedure Social History Code Duration Value Status Description Data Source(s ) Smoking 05/31/2021 12:00:00 AM EDT Patient has never smoked co mpleted Patient has never smoked MEDENT ([facility] Smoking 05/24/2021 12:00:00 AM EDT Never Smoked Cigarettes com pleted Never Smoked Cigarettes MEDENT ([facility]) Smoking 03/08/2021 12:00:00 AM EDT Never smoked tobacco (findi ng) completed Never smoked tobacco (finding) ROSALIO ([facility]) Assertion 03/08/2021 12:00:00 AM EDT Finding relat ing to drug misuse behavior (finding) completed Finding relating to drug misuse behavior (finding) CHURDAN ([facility]) Assertion 03/08/2021 12:00:00 AM EDT Current drinker of al cohol (finding) completed Current drinker of alcohol (finding) [facility] ([facility]) Smoking 01/11/2021 12:00:00 AM EDT Never smoked tobacco (findi ng) completed Never smoked tobacco (finding) ROSALIO ([facility]) Smoking 07/28/2020 12:00:00 AM EST Never smoked tobacco (findi ng) completed Never smoked tobacco (finding) ROSALIO ([facility]) Smoking 07/21/2020 12:00:00 AM EST Never smoked tobacco (findi ng) completed Never smoked tobacco (finding) ROSALIO ([facility]) Smoking 07/15/2020 12:00:00 AM EST Never smoked tobacco (findi ng) completed Never smoked tobacco (finding) ROSALIO ([facility]) Smoking 07/09/2020 12:00:00 AM EST Never smoked tobacco (findi ng) completed Never smoked tobacco (finding) ROSALIO ([facility]) Vital Signs ID Date Data Source UNK Name Value Range Interpretation Code Description Data Source(s) Diastolic blood pressure 61 mm[Hg] 61 mm[Hg] MED[facility] ([facility]) Body mass index (BMI) [Ratio] 27.3 kg/m2 27.3 k g/m2 MEDENT ([facility]) Body weight 164.00 [lb_av] 164.00 [lb_av] MEDEN T ([facility]) Body height 65 [in_i] 65 [in_i] MEDENT ([facility] 5'5" Heart rate 71 /min 71 /min MEDENT ([facility] Respiratory rate 16 /min 16 /min MEDENT ( [facility]) Systolic blood pressure 93 mm[Hg] 93 mm[Hg] EDENT ([facility]) Oxygen saturation in Arterial blood by Pulse oximetry 99 % 99 % MEDENT ([facility]) Systolic blood pressure 109 mm[Hg] 109 mm[Hg] M EDENT ([facility], [facility]) Diastolic blood pressure 76 mm[Hg] 76 mm[Hg] MEDENT ([facility], [facility]) Heart rate 92 /min 92 /min MEDENT ([facility], [facility]) Respiratory rate 15 /min 15 /min MEDENT ( [facility], [facility]) Body temperature 97.9 [degF] 97.9 [degF] MEDENT ([facility], [facility]) Body weight 162.00 [lb_av] 162.00 [lb_av] MEDEN T ([facility], [facility]) Body height 66 [in_i] 66 [in_i] MEDENT ([facility]) 5'6" Body mass index (BMI) [Ratio] 26.1 kg/m2 26.1 k g/m2 MEDENT ([facility], [facility]) Systolic blood pressure 110 mm[Hg] 110 mm[Hg] G REENWAY ([facility]) Diastolic blood pressure 72 mm[Hg] 72 mm[Hg] ROSALIO ([facility]) Body surface area Derived from formula 1.84 m2 1.84 m2 ROSALIO ([facility]) Heart rate 56 /min 56 /min [facility]ALIO [facility] Heart rate rhythm 1 1 [place] ([facility]) Respiratory rate 18 /min 18 /min ROSALIO ([facility]) Body temperature 97.8 [degF] 97.8 [degF] [place] AY ([facility]) Body height 66 [in_i] 66 [in_i] ROSALIO ([facility]) Body weight 164 [lb_av] 164 [lb_av] [facility] Body mass index (BMI) [Ratio] 26.5 kg/m2 26.5 k g/m2 [facility] PhenX - pain, abdominal - type and intensity protocol 2 2 ROSALIO ([facility] Oxygen saturation in Arterial blood by Pulse oximetry 99 % 99 % ROSALIO ([facility] Inhaled oxygen flow rate 0 L/min 0 L/min [facility] Inhaled oxygen concentration 21 % 21 % ROSALIO [facility] Heart rate 98 /min 98 /min ROSALIO ([facility]) Unable to obtain full set of vitals. PhenX - pain, abdominal - type and intensity protocol 0 0 ROSALIO ([facility]) Unable to obtain full set of vitals. Oxygen saturation in Arterial blood by Pulse oximetry 98 % 98 % ROSALIO ([facility]) Unable to obtain full set of vitals. Inhaled oxygen flow rate 0 L/min 0 L/min ROSALIO ([facility]) Unable to obtain full set of vitals. Inhaled oxygen concentration 21 % 21 % ROSALIO ([facility]) Unable to obtain full set of vitals. Body height 66 [in_i] 66 [in_i] [facility] ([facility]) 5'6" Body weight 168.00 [lb_av] 168.00 [lb_av] MEDEN T ([facility]) Body mass index (BMI) [Ratio] 27.1 kg/m2 27.1 k g/m2 [facility] ([facility]) Eldred body weight 130 [lb_av] 130 [lb_av] MEDEN T ([facility]) Body weight 76.205 kg 76.205 kg [facility] ([facility]) Body surface area Derived from formula 1.86 m2 1.86 m2 [facility] ([facility]) Diastolic blood pressure 68 mm[Hg] 68 mm[Hg] MEDENT ([facility] Body height 66 [in_i] 66 [in_i] MEDENT ([facility] 5'6" Body weight 169.00 [lb_av] 169.00 [lb_av] MEDEN T ([facility] Systolic blood pressure 103 mm[Hg] 103 mm[Hg] M EDENT ([facility] Heart rate 89 /min 89 /min MEDENT ([facility] Body mass index (BMI) [Ratio] 27.3 kg/m2 27.3 k g/m2 MEDENT ([facility] Body weight 168.00 [lb_av] 168.00 [lb_av] [facility] Body mass index (BMI) [Ratio] 27.1 kg/m2 27.1 k g/m2 [facility] ([facility]) Eldred body weight 130 [lb_av] 130 [lb_av] MEDEN T ([facility]) Body weight 76.205 kg 76.205 kg [facility] ([facility]) Body surface area Derived from formula 1.86 m2 1.86 m2 [facility] ([facility]) Body height 66 [in_i] 66 [in_i] [facility] ([facility]) 5'6" Body temperature 97.6 [degF] 97.6 [degF] GREENW AY ([facility]) pt denies any other available vitals at this timeSprinsLPN PhenX - pain, abdominal - type and intensity protocol 4 4 ROSALIO ([facility]) pt denies any other available vitals at this timeSprinsLPN Body temperature 97.6 [degF] 97.6 [degF] GREENW AY ([facility]) pt denies ability to take other vitals a t this time but reports these over the phoneSprinsLPN PhenX - pain, abdominal - type and intensity protocol 2 2 ROSALIO ([facility]) pt denies ability to take other vitals a t this time but reports these over the phoneSprinsLPN Heart rate 84 /min 84 /min ROSALIO ([facility]) beginning of ambpt tolerated well, walke d approximately 50 ft went from 100% --pulse 84 to 98% pulse 96SprinsLPN Oxygen saturation in Arterial blood by Pulse oximetry 100 % 100 % CHURDAN ([facility]) beginning of ambpt tolerated well, walke d approximately 50 ft went from 100% --pulse 84 to 98% pulse 96SprinsLPN Inhaled oxygen flow rate 0 L/min 0 L/min ROSALIO ([facility]) beginning of ambpt tolerated well, walke d approximately 50 ft went from 100% --pulse 84 to 98% pulse 96SprinsLPN Inhaled oxygen concentration 21 % 21 % CHURDAN ([facility]) beginning of ambpt tolerated well, walke d approximately 50 ft went from 100% --pulse 84 to 98% pulse 96SprinsLPN Systolic blood pressure 100 mm[Hg] 100 mm[Hg] G REENWAY ([facility]) Diastolic blood pressure 66 mm[Hg] 66 mm[Hg] ROSALIO ([facility]) Heart rate 82 /min 82 /min ROSALIO ([facility]) Heart rate rhythm 1 1 GREENWA Y ([facility]) Respiratory rate 18 /min 18 /min ROSALIO ([facility]) Body temperature 96.5 [degF] 96.5 [degF] GREENW AY ([facility]) Body weight 162 [lb_av] 162 [lb_av] ROSALIO ([facility]) PhenX - pain, abdominal - type and intensity protocol 1 1 CHURDAN ([facility]) Oxygen saturation in Arterial blood by Pulse oximetry 99 % 99 % CHURDAN ([facility]) Inhaled oxygen flow rate 0 L/min 0 L/min CHURDAN ([facility]) Inhaled oxygen concentration 21 % 21 % CHURDAN ([facility]) PhenX - pain, abdominal - type and intensity protocol 0 0 CHURDAN ([facility]) pt denies ability to take other vitals a t this timeSprinsLPN Systolic blood pressure 116 mm[Hg] 116 mm[Hg] M EDENT ([facility], [facility]) Diastolic blood pressure 76 mm[Hg] 76 mm[Hg] MEDENT ([facility], [facility]) Heart rate 78 /min 78 /min MEDENT ([facility], [facility]) Respiratory rate 16 /min 16 /min [facility] ( [facility], [facility]) Oxygen saturation in Arterial blood by Pulse oximetry 99 % 99 % MEDENT ([facility], [facility]) Body temperature 98.1 [degF] 98.1 [degF] MEDENT ([facility], [facility]) Body weight 170.00 [lb_av] 170.00 [lb_av] MEDEN T ([facility], [facility]) Systolic blood pressure 110 mm[Hg] 110 mm[Hg] M EDENT ([facility], [facility]) Respiratory rate 16 /min 16 /min [facility] ( [facility]) Oxygen saturation in Arterial blood by Pulse oximetry 99 % 99 % [facility] ([facility]) Body height 66 [in_i] 66 [in_i] [facility] ([facility]) 5'6" Body mass index (BMI) [Ratio] 26.6 kg/m2 26.6 k g/m2 [facility] ([facility]) Body temperature 98.6 [degF] 98.6 [degF] [facility] ([facility]) Body weight 165.00 [lb_av] 165.00 [lb_av] MEDEN T ([facility]) Diastolic blood pressure 78 mm[Hg] 78 mm[Hg] [facility] ([facility]) Heart rate 60 /min 60 /min [facility] ([facility]) Patient Treatment Plan of Care Planned Activity Planned Date Details Description Data Source (s) 60 ACTUAT Albuterol 0.09 MG/ACTUAT Metered Dose Inhale r 07/15/2020 12:00:[address] [facility] [place] ([facility]) Prednisone 10 MG Oral Tablet 07/15/2020 12:00:[address] [facility] [place] ([facility]) Amoxicillin 875 MG / Clavulanate 125 MG Oral Tablet 07/15/20 12:00:[address] [facility] [place] ([facility]) EQL Fluticasone Propionate 50 MCG/ACT Nasal Suspension 07/09/2020 12:00:[address] [facility] [place] ([facility]) Triamcinolone Acetonide 0.25 MG/ML Topical Cream 01/10/2020 12:00:0 0 AM [facility] [place] ([facility])
--- OUTSIDE RECORDS SUMMARY | 2021-06-05 21:16 | CCD | Continuity of Care Document ---
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
--- OUTSIDE RECORDS SUMMARY | 2021-06-05 21:16 | CCD | Clinical Summary ---
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 doing well without complaint, breast complaints was unremarkabl e - The Chief Complaint is: Patient ambulates to exam room 30 for annual health review. Patient denies any questions or concerns. Heath YANG Problems Includes: Problems addressed during this encounter and other active Problems Current Visit Onset Date - Time Resolved Date - Time Provider C ondition Status Allergic Rhinitis 01/11/2021 - 2:51PM Raysa Martinez NP Active Headache Syndromes 07/28/2020 - 12:00AM Raysa Martinez NP Active Note: CT head ordered Abnormal Electrocardiogram 07/21/2020 - 12:00AM Raysa Martinez NP Active Note: possible old septal in farct, poor r wave progression; referral to cardiology made Obesity 01/09/2020 - 12:00AM Raysa Martinez NP Act westley Past Visits Onset Date - Time Resolved Date - Time Provider Co ndition Status Palpitations 01/11/2021 - 2:51PM Raysa Martinez NP Acti ve Missed 11/09/2020 - 8:08AM Raysa Martinez NP A ctive Note: 10/13/20; D&C Genetic susceptibility to other malignant neoplasm 03/16/2020 - 12:00AM Raysa Martinez NP Active Note: -follows with breast s pecialist d/t familial hx of breast cancer; +VUS Encntr screen mammogram for malignant neoplasm of breast 020 - 12:00AM Raysa Martinez NP Active Note: -family hx breast canc er; yearly mammo/MRIs done; follows w/[facility]; 03/06/20-normal mammo; repeat 1 year Intrinsic (allergic) eczema 01/09/2020 - 12:00AM Raysa Martinez NP Active Note: b/l hands Plantar Fasciitis Left 01/09/2020 - 12:00AM Raysa Hardy NP Active Polycystic Ovarian Syndrome (Pcos) 01/09/2020 - 12:00AM Raysa Martinez NP Active Encounter for screening for malignant neoplasm of cervix 020 - 12:00AM Raysa Martinez NP Active Note: follows with Dr. Mcihelle Brothers Routine Examination 06/27/2017 - 12:00AM Elaine molina NP Active Plan of Treatment Pending Tests Order Diagnosis Results Due Ordering Provi william Follow-up Appt - Follow-up AHR in 1 year Polycystic ovarian syndr ome 03/08/21 Raysa Martinez NP Future Appointments Date Time Location Provider AHR 03/14/2022 8:00AM [facility] Raysa nieves NP Future Tests Order Diagnosis Results Due Ordering Provid er Records Labs Polycystic ovarian syndrome 03/12/21 Raysa Martinez NP - Return to the clinic if condition worsens or new symptoms arise Assessments Includes: Assessments from this encounter - [Encounter for general adult medical examination without abnormal findings] Visit for routine adult H&P without abnormal findings - [Allergic rhinitis, unspecified] Aller gic rhinitis - [Abnormal electrocardiogram [ECG] [EKG ]] Abnormal electrocardiogram - [Obesity, unspecified] Obesity - [Other headache syndrome] Headache syn dromes Clinical Breast exam performed in office, no abnormalities noted. She has an MRI that needs to be scheduled for her 6 month follow up, pt has contact information at home and will call to reschedule. Will call ENT office to find out status of Oracle Application Architect referral and make pt aware. Continue with tylenol as needed, avoidance of triggers. If symptoms worsen, call the office. Call to be placed to Cardiology as well to see if Stress Test can be moved up, it has been 10 months since initial recommendation with mx cancellations, 1 due to patient and 3 changes made by the office. Will request recent lab work from [facility] [place]. Pt advised if any questions or concerns arise to contact the office. Instructions Includes: Instructions from this encounter Education and Decision Aids were provide d during visit for: Discussed nutritional needs Discussed concerns about exercise Patient appeared to understand therapeut ic regimen Medical Equipment - Implanted Devices Includes: Current DevicesNo Medical Equipment Recorded Medications Includes: Medications discussed during this encounter and other current Medicati ons Current Medications (continue as prescribed) Doxycycline Hyclate 100 MG Oral Tablet 03/05/2021 P rovider: Diagnosis: metFORMIN HCl ER 500 MG Oral Tablet Extended Release 24 Hour 01/11/2021 Provider: Diagnosis: take 1 tablet in the morning and 2 tablets at night. total o f 1500mg daily Medications Administered Includes: Administered Medications from this encounterNo Administered Medications Recorded Vital Signs Includes: Vital Signs from this encounter Vital Name 03/08/2021 01:37P Blood Pressure Sitting L 110/72 BP Cuff Size Regular Pulse Rate-Sitting (bpm) 56 Pulse Rhythm Regular Respiration Rate (breaths/min) 18 Temp-Tympanic (F) 97.8 Height (in) 66 Weight (lb) 164 Body Mass Index (kg/m2) 26.5 Body Surface Area (m2) 1.84 Pain Level 2 Oxygen Saturation (%) 99 Flow Rate (l/min) (None (Room Air)) FiO2 (%) 21 Results Includes: Results discussed during this encounterNo Results Recorded For Specified Dates History of Present Illness Includes: History of Present Illness from this encounter Karen Stevens is a 35 year old female. - Allergy list reviewed - Medication reconciliation performed - Date of last menstruation 02/19/21 - No pain during intercourse - Normal menses - No dysmenorrhea - No unexplained vaginal bleeding - Menopause has not occurred - - No request for consultation by special ist - No previous emergency room visit HPI [use for free text] Pt presents to the office today for AHR, she reports that she has been feeling well overall, she continues to have intermittent headaches and sinus issues, her ENT referred her to an leveling machine operator, however she has not heard anything back pertaining to the referral. She reports with use of tylenol it has been tolerable. She is off for the summer, staying busy with her daughter who is starting summer camp. Pending stress test is scheduled with Dr. Degroot, unfortunately it has been rescheduled 4 times since appt was made in August, stress test is now scheduled for May 212020. She denies any chest pain, palpitations, dizziness or syncope. Pt continues to follow with [facility] [place] for fertility treatments in hopes of becoming , she did have a miscarriage and D/C in September, she not been able to get yet since. Reports recent lab work was drawn at their office. Social History Description Last Updated Alcohol use 03/08/2021 (female) less than 3 drinks per occasion / 7 per week 03/08/2021 Not using drugs 03/08/2021 03/08/2021 No secondhand cigarette smoke exposure 03/08/2021 Smoking status 03/08/2021 : Never smoker 03/08/2021 Procedures and Surgical History Includes: Procedures from this encounter Procedures Code Diagnosis Performing Provider Service Location Service Date continue current medication unless otherwise stated Transition in care medication list update records management 03/08/2021 - Chart Prep Performed drug and/or alcohol abuse structured scr eening and brief intervention 03/08/2021 : Prescreening Completed - No Further Screening Indicated Summary provided electronically in CCDA format & reasonable certainty of receipt Surgical History Last Updated History of surgical treatment of missed by dilation and curettage 10/13/2020 7 weeks 11/09/2020 History of tonsillectomy age 24 01/09/2020 Medical History Includes: Medical History addressed during this encounter Description Last Updated Aborta 2 03/08/2021 3 03/08/2021 Para 1 03/08/2021 Past medical history -Please see Problem List for Act westley Chronic Problems 01/11/2020 Family History Includes: Family History addressed during this encounter Description Last Updated Paternal history of stroke syndrome -age 50 0 Family history of hyperlipidemia 01/09/2020 Family history of hypertension 01/09/2020 Paternal history of hypertension 01/09/2020 Family history of atrial fibrillation 01/09/2020 Maternal grandfather's history of colon cancer 020 Maternal grandfather's history of thyroid cancer 01/08 Maternal history of breast cancer 01/09/2020 Review of Systems Includes: Review of Systems from this encounter Systemic: Not feeling poorly (malaise). No fever, no chills, no night sweats, and no recent weight change. Head: No headache, no facial pain, and no sinus pain. Neck: No neck pain, no neck stiffness, and no lump or swelling in the neck. Eyes: No vision problems, no itching of the eyes, and no eye pain. No photophobia. Otolaryngeal: No hearing loss, no earache, no tinnitus, no nasal discharge, no epistaxis, no hoarseness, no sore throat, and no bleeding gums. No mouth sores. Breasts: No breast lump, no nipple discharge, and no pain in breast. Cardiovascular: No chest pain or discomfort, no palpitations, and the heart rate was not fast. Pulmonary: No dyspnea, not during exertion, and not nocturnal; causing awakening from sleep. No cough, no hemoptysis, and no wheezing. Gastrointestinal: Normal appetite, no dysphagia, and no heartburn. No nausea, no vomiting, no abdominal pain, and no melena. No diarrhea. Genitourinary: No genitourinary symptoms, no hematuria, and no increase in urinary frequency. No dysuria and no dysuria, no frequency, no hesitancy. No genital lesion. Endocrine: No polydipsia, no excessive sweating, and libido has not changed. Musculoskeletal: No muscle aches, no muscle aches, no localized joint pain, and no localized joint stiffness. Neurological: No dizziness, no vertigo, no fainting, no motor disturbances, and no sensory disturbances. Psychological: No anxiety, no depression, and no sleep disturbances. Skin: No pruritus. No skin lesions and no rash. Mental Status Includes: Mental Status from this encounter Description Cognitive functioning was normal Oriented to time, place, and person Thought processes were not impaired No anxiety The thought content revealed no impairme nt Functional Status Includes: Functional Status from this encounterNo Functional Status Recorded Physical Exam Includes: Physical Exam from this encounter Skin: -no skin lesions -the skin general appearance was normal -no lesions on the breast Ears, Nose, Throat: -external auditory meatus normal -tympanic membrane was normal -no nasal discharge seen -the oropharynx was normal Neck: -the neck demonstrated no decrease in suppleness -the thyroid showed no abnormalities -no cervical mass was seen Lymph Nodes: -the supraclavicular lymph nodes were not enlarged Lungs: -normal breath sounds/voice sounds -no wheezing was heard -no rhonchi were heard -no rales/crackles were heard Breast: -Breasts -the nipples showed no abnormalities -no abnormal breast secretion was observed -no breast mass was found -no peau d'orange was noted in the breast -no dimpling was seen in the breast -no tenderness of the breast -right breast was examined -left breast was examined -appearance of the breast was normal -palpation of the breast revealed no abnormalities -the right breast was normal to palpation -the left breast was normal to palpation -no erythema of the breast Cardiovascular System: -no murmurs were heard -no pitting edema -no nonpitting edema -heart rate and rhythm normal -no bradycardia present -no tachycardia present Abdomen: -the bowel sounds were normal -abdominal non-tender -no mass was palpated in the abdomen -the liver was not enlarged -the spleen was not enlarged Back: -no costovertebral angle tenderness -Back: normal Psychiatric Exam: -the grooming was normal -the affect was normal -the mood was euthymic -thought processes were not impaired -the thought content revealed no impairment Neurological System: -cognitive functioning was normal -the cranial nerves were normal -gait and stance were normal -the deep tendon reflexes were normal -oriented to time, place, and person General Status: -well-appearing -in no acute distress -well developed -well nourished -no feelings of hopelessness -no loss of interest in activities Musculoskeletal System: -overall findings were normal Vital Signs: -current vital signs reviewed Eyes: -PERRLA Immunizations Includes: Immunizations addressed during this encounter Vaccine Dose # Date Site Reaction(s) Status Source Pfizer COVID19 1 Complete (Reported) Patie nt Pfizer COVID19 2 Complete (Reported) Patie nt Allergies Includes: Active AllergiesNo Known Allergies Encounters Encounter Provider Location Date Check-In Time Check-Out Time D iagnosis [facility] Raysa Martinez [facility] 03/08/2021 1:29PM 2:12PM Allergic Rhinitis, Headache Syndromes, Obesity, Abnormal Electrocardiogram, Visit For: Routine Adult H&p Without Abnormal Findings Insurance Includes: Active Insurance Policies Plan Name Member ID Group # Subscriber Relationship Effective Da sahil 1 - [employer]- [id number] Karen Stevens Self 08/21/2016 - Unknown Advance Directives Includes: Current Advance Directives Directive Pat Aware Third Green Party Effective Date Reviewed Status Ebola Screening Performed Yes 01/09/2020 Current and Verified Note: Within the last month, have you traveled outside of the [place]? - NO packet given Pt Bill of Rights, Priv Prac, Ad Dir Yes 03/08/2021 Current and Verified Note: Pt declined AD packet Health Concerns Includes: Health Concerns for current assessmentsNo Active Health Concerns Recorded Goals Includes: Active Goals for current assessmentsNo Active Goals Recorded Interventions Includes: Interventions for current assessmentsNo Interventions Recorded Evaluations & Outcomes Includes: Evaluations & Outcomes for current assessmentsNo Outcomes Recorded
[2021-06-05] MEDS ORDERED: METF500T13 PO (21:19)
--- OUTSIDE RECORDS SUMMARY | 2021-06-05 22:01 | CCD ---
Author Author [facility] Organization [facility] Address Unknown Phone Unavailable Care Team Providers Care Dispersion Mixer Name Role Phone JuanRaysa Maki Unavailable Unavailable [...] Unavailable Unavailable CHROSTMIGNON LORENZ MD Unavailable Unavailable Rochelle, A Raysa CAMP GUARD Unavailable Unavailable Rochelle, A Raysa CAMP GUARD Unavailable Unavailable Rochelle, A Raysa CAMP GUARD Unavailable Unavailable Juan, A Raysa CAMP GUARD Unavailable Unavailable Rochelle, A Raysa CAMP GUARD Unavailable Unavailable Juan, A Raysa CAMP GUARD Unavailable Unavailable Juan, A Raysa CAMP GUARD Unavailable Unavailable Rochelle, A Raysa CAMP GUARD Unavailable Unavailable Rochelle, A Raysa CAMP GUARD Unavailable Unavailable Juan, A Raysa CAMP GUARD Unavailable Unavailable Rochelle, A Raysa CAMP GUARD Unavailable Unavailable Juan, A Raysa CAMP GUARD Unavailable Unavailable Rochelle, A Raysa CAMP GUARD Unavailable Unavailable Rochelle, A Raysa CAMP GUARD Unavailable Unavailable Rochelle, A Raysa CAMP GUARD Unavailable Unavailable Rochelle, A Raysa CAMP GUARD Unavailable Unavailable Juan, A Raysa CAMP GUARD Unavailable Unavailable Rochelle, A Raysa CAMP GUARD Unavailable Unavailable Rochelle, A Raysa CAMP GUARD Unavailable Unavailable Rochelle, A Raysa CAMP GUARD Unavailable Unavailable Juan, A Raysa CAMP GUARD Unavailable Unavailable Rochelle, A Raysa CAMP GUARD Unavailable Unavailable Rochelle, A Raysa CAMP GUARD Unavailable Unavailable Rochelle, A Raysa CAMP GUARD Unavailable Unavailable Rochelle, A Raysa CAMP GUARD Unavailable Unavailable Juan, A Raysa CAMP GUARD Unavailable Unavailable Wayne Jeffers MD Unavailable Unavailable [...] Unavailable Wayne VALLADARES DPM Unavailable Unavailable Wayne VALLADAERS DPM Unavailable Unavailable Wayne VALLADARES DPM Unavailable [...] R VERNELL DPM Unavailable Unavailable MAJAK, R EVRNELL DPM Unavailable Unavailable MAJAK, R VERNELL DPM Unavailable Unavailable MAJAK, R VERNELL DPM Unavailable Unavailable Conner DEGROOT MD Unavailable Unavailable Conner DEGROOT MD Unavailable Unavailable Conner DEGROOT MD Unavailable Unavailable Conner DEGROOT MD Unavailable Unavailable Conner DEGROOT MD Unavailable Unavailable Conner DEGROOT MD Unavailable Unavailable Conner DEGROOT MD Unavailable Unavailable Conner DEGROOT MD Unavailable Unavailable Conner DEGROOT MD Unavailable Unavailable Conner DEGROOT MD Unavailable Unavailable Conner DEGROOT MD Unavailable Unavailable Conner DEGROOT MD Unavailable Unavailable Conner DEGROOT MD Unavailable Unavailable Conner DEGROOT MD Unavailable Unavailable Conner DEGROOT MD Unavailable Unavailable Conner DEGROOT MD Unavailable Unavailable Conner DEGROOT MD Unavailable Unavailable Conner DEGROOT MD Unavailable Unavailable Conner DEGROOT MD Unavailable Unavailable Conner DEGROOT MD Unavailable Unavailable Conner DEGROOT MD Unavailable Unavailable Conner DEGROOT MD Unavailable Unavailable Conner DEGROOT MD Unavailable Unavailable Conner DEGROOT MD Unavailable Unavailable Conner DEGROOT MD Unavailable Unavailable Conner DEGROOT MD Unavailable Unavailable Conner DEGROOT MD Unavailable Unavailable Conner DEGROOT MD Unavailable Unavailable Conner DEGROOT MD Unavailable Unavailable Conner DEGROOT MD Unavailable Unavailable Conner DEGROOT MD Unavailable Unavailable Conner DEGROOT MD Unavailable Unavailable Conner DEGROOT MD Unavailable Unavailable Conner DEGROOT MD Unavailable Unavailable Conner DEGROOT MD Unavailable Unavailable Conner DEGROOT MD Unavailable Unavailable Conner DEGROOT MD Unavailable Unavailable Conner DEGROOT MD Unavailable Unavailable Conner DEGROOT MD Unavailable Unavailable Conner DEGROOT MD Unavailable Unavailable Conner DEGROOT MD Unavailable Unavailable Conner DEGROOT MD Unavailable Unavailable Conner DEGROOT MD Unavailable Unavailable Conner DEGROOT MD Unavailable Unavailable Conner DEGROOT MD Unavailable Unavailable YATES, DESMOND STEVENSON MD [...] C ZENIA MD Unavailable Unavailable Yates, Cecy CAMP GUARD Unavailable Unavailable Yates, Cecy CAMP GUARD Unavailable Unavailable Yates, Cecy CAMP GUARD Unavailable Unavailable Yates, Cecy CAMP GUARD Unavailable Unavailable Yates, Cecy CAMP GUARD Unavailable Unavailable Yates, Cecy CAMP GUARD Unavailable Unavailable Yates, Cecy CAMP GUARD Unavailable Unavailable Yates, Cecy CAMP GUARD Unavailable Unavailable Yates, Cecy CAMP GUARD Unavailable Unavailable Yates, Cecy CAMP GUARD Unavailable Unavailable Yates, Cecy CAMP GUARD Unavailable Unavailable Yates, Cecy CAMP GUARD Unavailable Unavailable Yates, Cecy CAMP GUARD Unavailable Unavailable ROOT, A VALENTINA CAMP GUARD Unavailable Unavailable ROOT, A VALENTINA CAMP GUARD Unavailable Unavailable ROOT, A VALENTINA CAMP GUARD Unavailable Unavailable ROOT, A VALENTINA CAMP GUARD Unavailable Unavailable ROOT, A VALENTINA CAMP GUARD Unavailable Unavailable ROOT, A VALENTINA CAMP GUARD Unavailable Unavailable ROOT, A VALENTINA CAMP GUARD Unavailable Unavailable ROOT, A VALENTINA CAMP GUARD Unavailable Unavailable ROOT, A VALENTINA CAMP GUARD Unavailable Unavailable ROOT, A VALENTINA CAMP GUARD Unavailable Unavailable ROOT, A VALENTINA CAMP GUARD Unavailable Unavailable ROOT, A VALENTINA CAMP GUARD Unavailable Unavailable ROOT, A VALENTINA CAMP GUARD Unavailable Unavailable ROOT, A VALENTINA CAMP GUARD Unavailable Unavailable ROOT, A VALENTINA CAMP GUARD Unavailable Unavailable ROOT, A VALENTINA CAMP GUARD Unavailable Unavailable ROOT, A VALENTINA CAMP GUARD Unavailable Unavailable ROOT, A VALENTINA CAMP GUARD Unavailable Unavailable ROOT, A VALENTINA CAMP GUARD Unavailable Unavailable ROOT, A VALENTINA CAMP GUARD Unavailable Unavailable ROOT, A VALENTINA CAMP GUARD Unavailable Unavailable ROOT, A VALENTINA CAMP GUARD Unavailable Unavailable ROOT, A VALENTINA CAMP GUARD Unavailable Unavailable ROOT, A VALENTINA CAMP GUARD Unavailable Unavailable ROOT, A VALENTINA CAMP GUARD Unavailable Unavailable ROOT, A VALENTINA CAMP GUARD Unavailable Unavailable ROOT, A VALENTINA CAMP GUARD Unavailable Unavailable ROOT, A VALENTINA CAMP GUARD Unavailable Unavailable ROOT, A VALENTINA CAMP GUARD Unavailable Unavailable ROOT, A VALENTINA CAMP GUARD Unavailable Unavailable ROOT, A VALENTINA CAMP GUARD Unavailable Unavailable ROOT, A VALENTINA CAMP GUARD Unavailable Unavailable ROOT, A VALENTINA CAMP GUARD Unavailable Unavailable ROOT, A VALENTINA CAMP GUARD Unavailable Unavailable ROOT, A VALENTINA CAMP GUARD Unavailable Unavailable ROOT, A VALENTINA CAMP GUARD Unavailable Unavailable ROOT, A VALENTINA CAMP GUARD Unavailable Unavailable ROOT, A VALENTINA CAMP GUARD Unavailable Unavailable ROOT, A VALENTINA CAMP GUARD Unavailable Unavailable ROOT, A VALENTINA CAMP GUARD Unavailable Unavailable ROOT, A VALENTINA CAMP GUARD Unavailable Unavailable ROOT, A VALENTINA CAMP GUARD Unavailable Unavailable ROOT, A VALENTINA CAMP GUARD Unavailable Unavailable CICIARConner CHEEK MD Unavailable Unavailable [...] YATES, DESMOND STEVENSON MD Unavailable Unavailable YATES, EDSMOND STEVENSON MD Unavailable Unavailable YATES, DESMOND STEVENSON [...] is protected by Article 27-F of the [facility] Public [facility] law. If you continue you may have access to information: Regarding HIV / AIDS; Provided by facilities licensed or operated by the [facility] Office of Mental Health; or Provided by the [facility] Office for People With Developmental Disabilities. If such information is present, then the following [place] State mandated warning applies: This information has [...] law may result in a fine or halfway sentence or both. A general authorization for the release of medical or other information is NOT sufficient authorization for further disc losure. 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 Status Observation Descr iption Data Source(s) packet [...] reactions NO KNOWN ALLERGIES NO KNOWN ALLERGIES [facility] Allergy to substance No Known Allergies [...] No known allergies (situation ) [facility] ([facility]) Encounters Encounter Providers Location Date Indications Data Source(s ) Outpatient Attender: MIGNON NOLASCO MD Main Office 05/31/2021 08:30:00 AM EDT [facility] ([facility] Outpatient Attender: VILMA duran 05/24/2021 02:45:00 PM EDT [facility] ([facility] <td ID="encounterTypeDescriptionID0">AHR </td><td>Raysa Martinez CAMP GUARD</td><td>[facility]</td><td>03/08/2021</td><td>1:29PM</td><td>2:12PM</td><td><content ID="encounterDiagnosisID0-0">Allergic Rhinitis</content>, <content ID="encounterDiagnosisID0-1">Headache Syndromes</content>, <content ID="encounterDiagnosisID0-2">Obesity</content>, <content ID="encounterDiagnosisID0-3">Abnormal Electrocardiogram</content>, <content ID="encounterDiagnosisID0-4">Visit For: Routine Adult H&p Without Abnormal Findings</content></td>Outpatient Attender: Raysa Martinez NP [facility] 03/08/2021 01:29:00 PM EDT - 03/08/2021 02:12:54 PM EDT Allergic RhinitisHeadache SyndromesAbnormal ElectrocardiogramObesityVisit For: Routine Adult H&p Without Abnormal Findings [facility] ([facility]) Allergic Rhinitis Headache Syndromes Abnormal Electrocardiogram Obesity Visit For: Routine Adult H&p Without Abn ormal Findings Outpatient Attender: LOCO RUTH MSReferrer: Sis Garcia 02/12/2021 12:00:00 AM [facility] Outpatient Referrer: Dee Bennett MD 01/15/2021 12:00:00 A M [facility] miscarriage Outpatient<td ID="encounterTypeDescripti onID0">Acute Telehealth FaceTime</td><td>Raysa Martinez NP</td><td>[facility]</td><td>01/11/2021</td><td>8:00AM</td><td>8:30AM</td><td><content ID="encounterDiagnosisID0-0">Headache Syndromes</content>, <content ID="encounterDiagnosisID0-1">Obesity</content>, <content ID="encounterDiagnosisID0-2">Allergic Rhinitis</content>, <content ID="encounterDiagnosisID0-3">Palpitations</content></td> Attender: Raysa Martinez NP [facility] 01/11/2021 08:00:00 AM EDT - 01/11/2021 08:30:55 AM EDT PalpitationsAllergic RhinitisHeadache SyndromesObesity [facility] ([facility]) Palpitations Allergic Rhinitis Headache Syndromes Obesity Outpatient Attender: VERNELL VALLADARES [facility] Office 12/19 03:45:00 PM EDT [facility] ([facility] Outpatient Attender: ZENIA Samuel/Kun/Earl/Noris sidhu 12/30/2020 03:45:00 PM EDT [facility] Outpatient Attender: LOCO FARAZ MSReferrer: Sis Garcia 12/29/2020 12:00:00 AM T [facility] Outpatient Attender: VERNELL VALLADARES [facility] Office 11/19 03:45:00 PM EDT [facility] ([facility] <td ID="encounterTypeDescriptionID0">Bethany rt Update</td><td>Raysa Martinez NP</td><td></td><td>11/16/2020</td><td>7:48AM</td><td>11:59PM</td><td></td>Unkno Attender: Raysa Martinez NP 11/16/2020 07:4 8:00 AM EDT - 11/16/2020 11:59:00 PM EDT [facility] ([facility]) Unknown<td ID="encounterTypeDescriptionI D0">Chart Update</td><td>Raysa Martinez NP</td><td></td><td>11/09/2020</td><td>8:08AM</td><td>11:59PM</td><td></td> Attender: Raysa Martinez NP 11/09/2020 08:08:00 AM EDT - 11/09/2020 11:59:00 PM EDT [facility] Outpatient Attender: Sis Garcia [id number] 11/09/2020 12:00: 00 AM EDT Complete or unspecified spontaneous without complication [facility] Complete or unspecified spontaneous abor tion without complication Outpatient Attender: VERNELL VALLADARES DPM [facility] 10/19 03:45:00 PM EDT [facility] ([facility] Outpatient Attender: VALENTINA ELLIOTT NP 10/14/2020 12:00:[address] [facility] Outpatient Attender: EDEN DEGROOT MD 10/13/2020 10:51: 58 AM EST [facility] [place] ( in Healthcare facility) Attender: EDEN DEGROOT MDAdmitter: EDEN DEGROOT MDConsultant: Raysa Martinez 10/13/19 06:34:00 AM [facility] - 10/13/2020 07:06:00 PM [facility] Outpatient Attender: EDEN DEGROOT MDAdmitter: EDEN BRANDT MD 10/13/2020 06:34:00 AM EST - 10/13/2020 07:06:00 PM EST MISSED AB *GESTATION 6WK 3DAYS [facility] MISSED AB *GESTATION 6WK 3DAYS Patient discharged. Outpatient Attender: EDEN DEGROOT MD 10/12/2020 01:25: 33 PM EST [facility] Outpatient Attender: EDEN DEGROOT MD 10/12/2020 12:40:00 PM EST COVID TEST ONLY [facility] COVID TEST ONLY Outpatient Attender: VERNELL VALLADARES DPM [facility] 09/21 12:30:00 PM EST [facility] ([facility] Outpatient Referrer: VALENTINA ELLIOTT NP 09/29/2020 12:00:[address] [facility] Outpatient Attender: VALENTINA ELLIOTT NP 09/29/2020 12:00:[address] [facility] Outpatient Attender: VERNELL VALLADARES DPM [place] 09/2020 01:45:00 PM EST [facility] ([facility] Outpatient Referrer: VIDA [email or web address].[email or web address] 09/10/2020 09:11:47 A M EST [facility] Outpatient Attender: ZENIA Samuel/Kun/Earl/Noris sidhu 09/07/2020 12:15:00 PM EST [facility] ([facility] Outpatient Attender: VIDA WOODRUFFPUL-SJP.PUL 09/07/2020 08:07:10 AM EST - 09/07/2020 09:13:39 AM EST [facility] Unknown<td ID="encounterTypeDescriptionI D0">Referral Order</td><td>Raysa Martinez NP</td><td></td><td>07/30/2020</td><td></td> Attender: Raysa Martinez NP 07/30/2020 04:10:00 PM EST - 07/30/2020 11:59:00 PM EST [facility] ([facility] Outpatient<td ID="encounterTypeDescripti onID1">Telephonic Encounter</td><td>Raysa Martinez NP</td><td>[facility]</td><td>07/28/2020</td><td><content ID="encounterDiagnosisID1-0"> Headache Syndromes</content>, <content ID="encounterDiagnosisID1-1">Sinusitis Acute</content>, <content ID="encounterDiagnosisID1-2">Bronchitis</content>, <content ID="encounterDiagnosisID1-3">Cervicalgia</content></td> Attender: Raysa Martinez NP [facility] 07/28/2020 03:30:00 PM EST - 07/28/2020 02:10:51 PM EST CervicalgiaBronchitisSinusitis AcuteHead ache SyndromesCervicalgiaBronchitisSinusitis AcuteHeadache Syndromes [facility] ([facility]) Cervicalgia Bronchitis Sinusitis Acute Headache Syndromes Cervicalgia Bronchitis Sinusitis Acute Headache Syndromes <td ID="encounterTypeDescriptionID2">Tel ephonic Encounter</td><td>Raysa Martinez NP</td><td>[facility]</td><td>07/21/2020</td><td><content ID="encounterDiagnosisID2-0">Sinusitis Acute</content>, <content ID="encounterDiagnosisID2-1">Upper Respiratory Infection</content>, <content ID="encounterDiagnosisID2-2">Bronchitis</content>, <content ID="encounterDiagnosisID2-3">Chest Pain</content>, <content ID="encounterDiagnosisID2-4">Abnormal Electrocardiogram</content></td>Outpatient Attender: Raysa Martinez NP [facility] 07/21/2020 11:3 0:00 AM EST - [...] Raysa Martinez NP 07/15/2020 11:46:00 PM EST Quality Auditor [facility] Quality Auditor Outpatient Attender: Raysa Martinez NP 07/15/2020 03:04:00 PM EST Xray [facility] Xray Outpatient<td ID="encounterTypeDescripti onID3">Acute L1</td><td>Raysa Martinez NP</td><td>[facility]</td><td>07/15/2020</td><td><content ID="encounterDiagnosisID3-0">Sinusitis Acute</content>, <content ID="encounterDiagnosisID3-1">Bronchitis</content>, <content ID="encounterDiagnosisID3-2">Upper Respiratory Infection</content></td> Attender: Raysa Martinez NP [facility] 07/15/2020 01:00:00 PM EST - 07/15/2020 03:04:54 PM EST Upper Respiratory InfectionBronchitisSin usitis AcuteUpper Respiratory InfectionBronchitisSinusitis AcuteUpper Respiratory InfectionBronchitisSinusitis AcuteUpper Respiratory InfectionBronchitisSinusitis Acute [facility] ([facility]) Upper Respiratory Infection Bronchitis Sinusitis Acute Upper Respiratory Infection Bronchitis Sinusitis Acute Upper Respiratory Infection Bronchitis Sinusitis Acute Upper Respiratory Infection Bronchitis Sinusitis Acute Outpatient<td ID="encounterTypeDescripti onID4">Acute L1</td><td>Raysa Martinez CAMP GUARD</td><td>[facility]</td><td>07/09/2020</td><td><content ID="encounterDiagnosisID4-0">Upper Respiratory Infection</content>, <content ID="encounterDiagnosisID4-1">Sinusitis Acute</content></td> Attender: Raysa Martinez NP [facility] 07/09/2020 08:00:00 AM EST - 07/09/2020 08:38:14 AM EST Sinusitis AcuteUpper Respiratory Infecti onSinusitis AcuteUpper Respiratory InfectionSinusitis AcuteUpper Respiratory InfectionSinusitis AcuteUpper Respiratory InfectionSinusitis AcuteUpper Respiratory Infection [facility] ([facility]) Sinusitis Acute Upper Respiratory Infection Sinusitis Acute Upper Respiratory Infection Sinusitis Acute Upper Respiratory Infection Sinusitis Acute Upper Respiratory Infection Sinusitis Acute Upper Respiratory Infection Outpatient Attender: Neha jean-baptiste 06/26/2020 05:45:00 PM EST [facility] ([facility]) Outpatient Attender: Cecy Henley loco 06/20/2020 09:45:00 AM EDT [facility] ([facility]) Attender: ELVA YATES MDAdmitter: Amirah Jeffers MD 05/21/2020 10:36:45 AM EDT [facility] ( in Healthcare facility) Attender: Almaz Stiles MDAdmitter: Amirah Jeffers MDConsultant: Raysa Martinez 05/19/2020 07:29:00 AM EDT - 05/19/2020 05:52:00 PM EDT [facility] Outpatient Attender: Amirah Jeffers MDAt tender: ELVA YATES MDAdmitter: Amirah Jeffers MD 05/19/2020 07:29:00 AM EDT - 05/19/2020 05:52:00 PM EDT SUCTION DILATION AND CURETTAGE [facility] SUCTION DILATION AND CURETTAGE Patient discharged. Outpatient Attender: ELVA YATES MD 05/18/2020 07:02:11 PM EDT [facility] Outpatient Attender: ELVA YATES MD 05/18/2020 01:44 :00 PM EDT COVID TEST AND NURSE INTERVIEW [facility] COVID TEST AND NURSE INTERVIEW Immunizations Vaccine Date Status Description Data Source(s) COVID-19 VACCINE [employer] 11/14/2020 12:00:00 AM EDT completed [facility] Vaccine Series Complete: YESThis Data wa s Submitted to [facility] Via [employer]. COVID-19 VACCINE [employer] 10/24/2020 12:00:00 AM EST completed [facility] Vaccine Series Complete: NOThis Data was Submitted to [facility] Via [employer]. Medications Medication Brand Name Start Date Product Form Dose Route Admi nistrative Instructions Pharmacy Instructions Status Indications Reaction Description Data Source(s) Budesonide 0.032 MG/ACTUAT Nasal [place] [facility] Budesonide 1 12:00:00 AM EDT active [facility] ([facility] doxycycline hyclate 100 MG Oral Tablet Doxycycline [...] / guaifenesin 20 MG/ML Oral Solution [facility] ([facility]) 60 ACTUAT Albuterol 0.09 MG/ACTUAT Meter ed Dose Inhaler Albuterol Sulfate HFA 108 (90 Base) MCG/ACT Inhalation Aerosol Solution Albuterol Sulfate HFA 108 (90 Base) MCG/ACT Inhalation Aerosol Solution 07/15/2020 12:00:00 AM EST aborted [id number] ACTUAT albuterol 0. 09 MG/ACTUAT Metered Dose Inhaler [facility] ([facility]) Prednisone 10 MG Oral Tablet predniSONE 10 MG Oral Tab let predniSONE 10 MG Oral Tablet 07/15/2020 12:00:00 AM EST aborted prednisone 10 MG Oral Tablet [facility] ([facility]) Amoxicillin 875 MG / Clavulanate 125 MG Oral Tablet Amoxicillin-Pot Clavulanate 875-125 MG Oral Tablet Amoxicillin-Pot Clavulanate 875-125 MG Oral Tablet 07/15/2020 12:00:00 AM EST 1 aborted amoxicillin 875 MG / clavulanate 125 MG Oral Tablet [facility] ([facility]) EQL Fluticasone Propionate 50 MCG/ACT Nasal Suspension EQL Fluticasone Propionate 50 MCG/ACT Nasal Suspension 07/09/2020 12:00:00 AM EST aborted EQL Fluticasone Propionate [address] ([facility]) Amoxicillin 875 MG Oral Tablet Amoxicillin 875 MG Oral Table t 06/30/2020 12:00:00 AM EST active amoxicil boris 875 MG Oral Tablet [facility] ([facility]) doxycycline hyclate 100 MG Oral Capsule Doxycycline Hyclate 06/26/2020 12:00:00 AM EST active [facility] ([facility]) Prednisone 20 MG Oral Tablet Prednisone 06/26/2020 12:00:00 AM EST active [facility] ([facility]) 20 mg 06/26/2020 12:00:00 AM EST [...] 7 DAYS. TAKE WITH FOOD SOLD: 06/26/2020 [facility] benzonatate 100 MG Oral Capsule Benzonatate 06/20/2020 12:00:00 AM EDT ORAL active [facility] ([facility]) No Active Medications 06/20/2020 12:00:00 AM EDT completed [facility] ([facility]) Triamcinolone Acetonide 0.25 MG/ML Topic al Cream Triamcinolone Acetonide 0.025% External Cream Triamcinolone Acetonide 0.025% External Cream 01/10/20 12:00:00 AM EDT aborted triamcinolone ac etonide 0.25 MG/ML Topical Cream [facility] ([facility]) Insurance Providers Payer name Policy type / Coverage type Policy ID Covered green party ID Covered green party's relationship to connolly Policy Connolly Plan Information [employer] Other 0 [id number] Self 0 [employer] Other 0 [id number] Self 0 [employer] Other 0 [id number] Self 0 [employer] Other 0 [id number] Self 0 [employer] [place] Other 0 [id number] Self 0 [employer] [place] Other 0 [id number] Self 0 [employer] [place] Other 0 [id number] Self 0 UMR [id number] Flori [id number] [employer] [place] Other 0 [id number] Self 0 [employer] [place] Other 0 [id number] Self 0 [employer] [place] Other 0 [id number] Self 0 [employer] [place] Other 0 [id number] Self 0 UMR U [id number] Self [id number] UMR U [id number] Self [id number] [employer] [place] Other 0 [id number] Self 0 [employer] [place] Other 0 [id number] Self 0 [employer] [place] Other 0 [id number] Self 0 [employer] [place] Other 0 [id number] Self 0 [employer] [place] Other 0 [id number] Self 0 [employer] [place] Other 0 [id number] Self 0 [place] / UMR F [id number] SELF [id number] UMR U [id number] Self [id number] UMR F [id number] SELF [id number] SELF PAY UMR [id number] SP [id number] BLUE CROSS [id number] MOTHER [id number] UMR HEA [id number] S [id number] [employer] [id number] SP [id number] [place] / UMR F [id number] SELF [id number] 1 [facility] [employer] BENEFITS POPRAGEOUS [id number] SELF [id number] UMR [facility] [id number] SP [id number] Problems, Conditions, and Diagnoses Code Display Name Description Problem Type Effective Dates Data Source(s) miscarriage miscarriage Diagnosis 01/15/2021 09:40:00 AM [facility] O03.9 Complete or unspecified spontaneous abor tion without complication Complete or unspecified spontaneous without complication Diagnosis 11/09/2020 08:06:27 AM [facility] E28.2 Polycystic ovarian syndrome Polycystic ovarian syndrom e Diagnosis 09/07/2020 08:07:10 AM [facility] E66.3 Overweight Overweight Diagnosis 09/07/2020 08:07:10 AM [facility] Z82.49 Family history of ischemic h eart disease and other diseases of the circulatory system Family history of ischemic heart disease Diagnosis 09/07/2020 08:07:10 AM [facility] R00.2 Palpitations Palpitations Diagnosis 09/07/2020 08:07:10 A M [facility] R94.31 Abnormal electrocardiogram [ECG] [EKG] A bnormal electrocardiogram (ECG) (EKG) Diagnosis 09/07/2020 08:07:10 AM [facility] R06.02 Shortness of breath Shortness of breath Diagnosis 0 09/07/2020 08:07:10 AM [facility] R07.2 Precordial pain Precordial pain Diagnosis 09/07/2020 08:0 7:10 AM [facility] J40 Bronchitis, not specified as acute or ch ronic J40 - Bronchitis, not specified as acute or chronic Diagnosis 07/15/2020 11:46:00 PM EST [facility] R06.02 Shortness of breath R06.02 - Shortness of breath Diagn osis 07/15/2020 03:04:00 PM EST [facility] J30.0 Vasomotor rhinitis Vasomotor rhinitis Problem 12:00:00 AM EDT [facility] ([facility]) [id number] Allergic rhinitis due to house dust mite Allergic rhinitis due to house dust mite Problem 05/31/2021 12:00:00 AM EDT [facility] ([facility]) Note: 2+ reaction to dust mites on intra dermal test. J30.1 Allergic rhinitis due to pollen Allergic rhinitis due to pollen Problem 05/31/2021 12:00:00 AM EDT [facility] ([facility] ) Note: 3+ positive reaction to tree mix # 1 (birch, oak, maple) on intradermal test. 785.1 Palpitations Palpitations Finding 01/11/2021 02:51:00 P M EDT [facility] ([facility]) 477.9 Allergic Rhinitis Allergic Rhinitis Problem 01/11/2021 02:51:00 PM EDT [facility] ([facility]) 785.1 Palpitations Palpitations Finding 01/11/2021 02:51:00 P M EDT [facility] ([facility]) 477.9 Allergic Rhinitis Allergic Rhinitis Problem 01/11/2021 02:51:00 PM EDT [facility] ([facility]) M72.2 Plantar fascial fibromatosis Plantar fascial fibromato sis Problem 11/15/2020 12:00:00 AM EDT [facility] ([facility] S92.315D Closed fracture of first metatarsal bone Closed fracture of first metatarsal bone Problem 11/15/2020 12:00:00 AM EDT [facility] ([facility] O02.1 Missed Missed Problem 11/09/2020 08:0 8:00 AM EDT [facility]) O02.1 Missed Missed Problem 11/09/2020 08:0 8:00 AM EDT [facility] ([facility]) O02.1 Missed Missed Problem 11/09/2020 08:0 8:00 AM EDT [facility] ([facility]) O02.1 Missed Missed Problem 11/09/2020 08:0 8:00 AM EDT [facility] ([facility]) M79.675 Pain in limb Pain in limb Problem 10/01/2020 12:0 0:00 AM EST - 11/15/2020 12:00:00 AM EDT [facility] ([facility] S90.112A Contusion of toe Contusion of toe Problem 021 12:00:00 AM EST - 11/15/2020 12:00:00 AM EDT [facility] ([facility] [id number] Gestation less than 9 weeks (finding) Pr egnant Weeks of Gestation - Less Than 8 Weeks Finding 09/16/2020 11:09:00 AM EST - 11/09/2020 08:08:00 AM EDT [facility] ([facility]) 339.89 Headache Syndromes Headache Syndromes Finding 0 12:00:00 AM EST [facility] ([facility]) 339.89 Headache Syndromes Headache Syndromes Finding 0 12:00:00 AM EST [facility] ([facility]) 339.89 Headache Syndromes Headache Syndromes Finding 0 12:00:00 AM EST [facility] ([facility]) 339.89 Headache Syndromes Headache Syndromes Finding 0 12:00:00 AM EST [facility] ([facility]) 339.89 Headache Syndromes Headache Syndromes Finding 0 12:00:00 AM EST [facility] ([facility]) 339.89 Headache Syndromes Headache Syndromes Finding 0 12:00:00 AM EST [facility] 794.31 Abnormal electrocardiogram [ECG] [EKG] A bnormal electrocardiogram [ECG] [EKG] Problem 07/21/2020 12:00:00 AM EST [facility] ([facility]) 794.31 Abnormal electrocardiogram [ECG] [EKG] A bnormal electrocardiogram [ECG] [EKG] Problem 07/21/2020 12:00:00 AM EST [facility]) 794.31 Abnormal electrocardiogram [ECG] [EKG] A bnormal electrocardiogram [ECG] [EKG] Problem 07/21/2020 12:00:00 AM EST [facility] ([facility]) 794.31 Abnormal electrocardiogram [ECG] [EKG] A bnormal electrocardiogram [ECG] [EKG] Problem 07/21/2020 12:00:00 AM EST [facility] ([facility] 794.31 Abnormal electrocardiogram [ECG] [EKG] A bnormal electrocardiogram [ECG] [EKG] Problem 07/21/2020 12:00:00 AM EST [facility] ([facility]) 794.31 Abnormal Electrocardiogram Abnormal Electrocardiogram Finding 07/21/2020 12:00:00 AM EST [facility] ([facility]) 794.31 Abnormal electrocardiogram [ECG] [EKG] A bnormal electrocardiogram [ECG] [EKG] Problem 07/21/2020 12:00:00 AM EST [facility] ([facility]) Surgeries/Procedures Procedure Description Date Indications Data Source(s) PERCUTANEOUS TESTS W/ALLERGENIC EXTRACTS 05/31/2021 12 :00:00 AM EDT MEDENT ([facility]) INTRACUTANEOUS TESTS W/ALLERGENIC EXTRACTS 05/31/2021 12:00:00 AM EDT MEDENT ([facility]) OFFICE OUTPATIENT NEW 30 MINUTES 05/31/2021 12:00:00 A M EDT MEDENT ([facility]) OFFICE OUTPATIENT VISIT 15 MINUTES 05/24/2021 12:00:00 AM EDT MEDENT ([facility]) Summary provided electronically in CCDA format & reasonable certainty of receipt 03/08/2021 12:00:00 AM EDT - 03/08/2021 12:00:00 AM EDT [facility] ([facility]) drug and/or alcohol abuse structured scr eening and brief intervention 03/08/2021 : Prescreening Completed - No Further Screening Indicated 03/08/2021 12:00:00 AM EDT - 03/08/2021 12:00:00 AM EDT [facility] ([facility]) records management 03/08/2021 - Chart Prep [...] - 01/11/2021 12:00:00 AM EDT [facility] ([facility]) RADEX FOOT COMPLETE MINIMUM 3 VIEWS 12/01/2020 12:00:0 0 AM EDT [facility] ([facility] Dilation of cervix uteri and curettage [...] weeks 11/09/2020 12:00:00 AM EDT JOSE MUELLER ([facility]) Dilation of cervix uteri and curettage o f uterus for removal of missed (procedure) History of surgical treatment of missed by dilation and curettage 10/13/2020 7 weeks 11/09/2020 12:00:00 AM EDT JOSE MUELLER ([facility]) RADEX FOOT COMPLETE MINIMUM 3 VIEWS 11/03/2020 12:00:0 0 AM EDT MEDENT ([facility] Endoscopy Nasal Diagnostic 09/07/2020 12:00:00 AM EST MEDENT ([facility], ) Noninvasive Ear or Pulse Oximetry for Oxygen Saturatio n; Mul Noninvasive Ear or Pulse Oximetry for Oxygen Saturation; Mul 07/15/2020 12:00:00 AM EST [facility] ([facility]) Electrocardiogram, Routine Ecg With At Least 12 Leads; Shayla Electrocardiogram, Routine Ecg With At Least 12 Leads; Shayla 07/15/2020 12:00:00 AM EST [facility] ([facility]) Noninvasive Ear or Pulse Oximetry for Oxygen Saturatio n; Mul Noninvasive Ear or Pulse Oximetry for Oxygen Saturation; Mul 07/15/2020 12:00:00 AM EST [facility] ([facility]) Ekg With Interpretation and Report Ekg With Interpretation a nd Report 07/15/2020 12:00:00 AM EST [facility] ([facility]) Results ID Date Data Source [id number] 05/24/2021 12:00:00 AM EDT [facility] Name Value Range Interpretation Code Description Data Geraldine rce(s) Supporting Document(s) SARS-CoV2 Rapid Antigen Negative [facility] This lab was ordered by [facility] and reported by [facility]. ID Date Data Source [id number] 11/09/2020 11:29:17 AM EDT [facility] Name Value Range Interpretation Code Description Data Geraldine rce(s) Supporting Document(s) Progress Note [facility] OAFCXq2lNpZXKdOt82/XKKgbWTIrr3WtUNygJEd9MDmaQEQbE6AvSWQ3uJ1bMVF8RMvFAjAgAcZqWdLt lbm [file] [id number]= ID Date Data Source [id number] 10/14/2020 07:40:00 PM [facility] [place], [place] [address]PATIENT NAME: JOSE LUIS STEVENSDATE OF : 1985REPORT: OPERATIONPATIENT NUMBER: [id number] STATUS: SDMEDICAL RECORD NUMBER: [id number] OF ADMISSION: 10/13/2020ATE OF DISCHARGE:ROOM: 01DATE OF PROCEDURE: 1PREOPERATIVE DIAGNOSIS: Missed at 7wk gestation.POSTOPERATIVE DIAGNOSIS: Missed at 7wk gestation.PROCEDURE: Suction D and C.SURGEON: YOSELYN MoonESIDENT: Myra Rivera MD, PGY-1ANESTHESIA: MAC.IV FLUIDS: 800 [...] placed in the dorsal lithotomy position in [facility] and exam under anesthesia revealed a 7-week [...] and Anora genetic testing. DICTATED BY: Myra Rivera MDDictated: 10/13/2020 10:59DT: 10/13/2020 16:43Job #: [id number]: [facility] computer generated reports are not confirmed orauthenticated unless they are signed by the providerElectronically Authenticated and Edited by:Myra Rivera MD On 10/14/2020 12:42 PM ESTElectronically Authenticated and Edited by:EDEN DEGROOT MD On 10/14/2020 07:40 PM EST Name Value Range Interpretation Code Description Data Geraldine rce(s) Supporting Document(s) ID Date Data Source [id number] 10/14/2020 04:43:15 AM EST [facility] TESTING SITE PERFORMED AT [address] [place] [address] 30046TPOR NUMBER [id number] COMPONENT TYPE Rh IMMUNE GLOBULINUNIT DIVISION 00STATUS OF UNIT TRANSFUSEDTRANSFUSION STATUS OK TO TRANSFUSE Name Value Range Interpretation Code Description Data Geraldine rce(s) Supporting Document(s) ID Date Data Source [id number] 10/27/2020 04:56:16 PM EST Lab [facility] [place], [place] [address]Tel# SURGICAL PATHOLOGY REPORTReceived:10/13/2020ccession #:[id number](s) Received: A: Products of conception for Anora [...] section issubmitted for microscopic examination. (1 block) amanda/radha DIAGNOSIS:PRODUCTS OF CONCEPTION CONSISTING OF IMMATURE CHORIONIC VILLI AND DECIDUA.Reported: 10/14/2020 10:03Electronically Signed Out By Duarte Beauchamp M.D. jzwPathology Associates of [facility]chard Park MaricruzMaricruzThis report may include one or more immunohistochemical or in-situhybridization results. Testing has been developed and the performancecharacteristics were determined by [facility] as requiredby [place] '88 regulations. The tests may not have been approved for a givenspecific use by the US Food and Drug Administration, but the FDA hasdetermined that such approval is not necessary for clinical use.ICD9 codes: O02.9Procedures/AddendaCytogenetics Date Ordered: 10/27/2020 Status: Signed Out Date Complete: 10/27/2020 By: Jaleel Owens Date Reported: 10/27/2020 InterpretationThe case was sent to [facility] for Anora testing. The results are asfollows:RESULT: Abnormal FemaleMICROARRAY RESULTS: arr 11q23.1 q25(111,800,000_131,600,000)x23,11q25(131,600,000_134,400,000)x1See attached outside report. Results-Comments{Not Entered} Duarte Beauchamp M.D. Name Value Range Interpretation Code Description Data Geraldine rce(s) Supporting Document(s) ID Date Data Source [id number] 10/12/2020 05:27:56 PM EST [facility] SPEC EXP DATE 1PATI ENT ABO/Rh A NEGATIVEANTIBODY SCREEN NEGATIVETESTING SITE PERFORMED AT [address] [place] [address] BANK COMMENT BLOOD TYPE CONFIRMED. Name Value Range Interpretation Code Description Data Geraldine rce(s) Supporting Document(s) ID Date Data Source [id number] 10/12/2020 01:25:32 PM EST [facility] Name Value Range Interpretation Code Description Data Geraldine rce(s) Supporting Document(s) WBC 9.4 10*3/uL (4.1-11.0) [facility] of [place] RBC 4.30 10*6/uL (4.00-5.40) Lab [facility] HGB 12.9 g/dL (12.0-16.0) Lab [facility] Y HCT 38.9 % (36.0-47.0) [facility] of [place] [facility] [address] [facility] [address] MCV 90.4 fL (80.0-95.0) [facility] of [facility] Y MCH 30.0 pg (27.0-32.0) [facility] of [facility] Y MCHC 33.2 g/dL (32.0-36.0) [facility] [place] RDW 14.7 % (10.5-14.5) H [facility] of [facility] [place] PLT 188 10*3/uL (150-450) [facility] [place] MPV 8.3 fL (7.1-10.7) [facility] of [facility] ID Date Data Source [id number] 10/12/2020 12:50:00 PM EST [facility] Name Value Range Interpretation Code Description Data Geraldine rce(s) Supporting Document(s) SARS coronavirus 2 RNA [Presence] in Res piratory specimen by ANGELICA with probe detection NOT DETECTED [facility] This lab was reported by [facility]. ID Date Data Source [id number] 10/12/2020 04:02:42 PM EST [facility] of [facility] Name Value Range Interpretation Code Description Data Geraldine rce(s) Supporting Document(s) SPECIMEN DESCRIPTION Lab [facility] of [facility] COVID19 RESULT (NDET) [facility] of [facility] NEGATIVE COVID-19 RESULTS DONOT PRECLUDE COVID-2019 INFECTION ANDSHOULD NOT BE USED THE SOLE BASISFOR PATIENT MANAGEMENT DECISIONS.THIS ASSAY AMPLIFIES AND DETECTS THE TARGETRNA USING ISOTHERMAL HELICASE DEPENDENTAMPLIFICATION.TESTING PERFORMED ON THE SANJAY.THE U.S. FDA HAS MADE THIS TEST AVAILABLEUNDER AN EMERGENCY USE AUTHORIZATION(EUA) FOR THE DETECTION AND/OR DIAGNOSISOF THE VIRUS THAT CAUSES COVID-19. FIRST TEST [facility] of [facility] [employer] [facility] of [facility] SYMPTOMATIC [facility] of [facility] [place] DATE OF SYMPT ONSET Lab [facility] of [facility] HOSPITALIZED [facility] of [facility] ICU [facility] of [facility] CONGREGATE CARE SET Lab [facility] of [facility] ID Date Data Source [id number] 10/12/2020 02:32:35 PM EST [facility] of [facility] - CORE SPEC EXP DATE 10/15/2020ATI ENT ABO/Rh A NEGATIVEANTIBODY SCREEN NEGATIVETESTING SITE PERFORMED AT [address] [facility] [address] BANK COMMENT BLOOD TYPE CONFIRMED. Name Value [...] - CORE MPV 9.1 fL (7.1-10.7) [facility] of [place] - CORE NEUT % 57.1 % (35.0-75.0) [facility] [place] - CORE LYMPH % 35.6 % (16.0-52.0) [facility] [place] - CORE MONO % 6.3 % (0.0-8.0) [facility] [place] - CORE EOS % 0.7 % (0.0-5.0) [facility] [place] - CORE BASO % 0.3 % (0.0-4.0) [facility] [place] - CORE NEUT # 4.2 10*3/uL (1.8-7.7) [facility] [place] - CORE LYMPH # 2.6 10*3/uL (1.2-4.8) [facility] [place] - CORE MONO # 0.5 10*3/uL (0.0-0.8) [facility] [place] - CORE Eosinophils [#/volume] in Blood by Automated count 0.1 10*3/uL (0.0-0 .5) [facility] [place] - CORE BASO # 0.0 10*3/uL (0.0-0.2) [facility] [place] - CORE ID Date Data Source [id number] 10/12/2020 03:09:30 PM EST [facility] [place] - CORE SPEC EXP DATE 10/15/2020ATI ENT ABO/Rh A NEGATIVEANTIBODY SCREEN NEGATIVETESTING SITE PERFORMED AT [address] [place] [address] BANK COMMENT BLOOD TYPE CONFIRMED. Name Value Range Interpretation Code Description Data Geraldine rce(s) Supporting Document(s) SODIUM 137 mmol/L (136-145) [facility] [place] - CORE POTASSIUM 4.4 mmol/L (3.6-5.2) [facility] [place] - CORE CHLORIDE 105 mmol/L (100-108) [facility] [place] - CORE CO2 25 mmol/L (22-31) [facility] [place] - CORE ANION GAP 7 mmol/L (7-16) [facility] [place] - CORE UREA NITROGEN 9 mg/dL (7-24) [facility] [place] - CORE CREATININE 0.64 mg/dL (0.60-1.00) [facility] [place] - CORE BUN/CREAT RATIO 14.1 RATIO (10.0-20.0) [facility] [place] - CORE GLUCOSE 93 mg/dL (70-99) [facility] [place] - CORE CALCIUM 9.0 mg/dL (8.4-10.2) [facility] [place] - CORE TOTAL PROTEIN 7.0 g/dL (6.4-8.2) [facility] [place] - CORE ALBUMIN 3.8 g/dL (3.5-4.6) [facility] [place] - CORE GLOBULIN 3.2 g/dL (2.7-4.3) [facility] [place] - CORE ALB/GLOB RATIO 1.2 RATIO Laboratory [facility] of [place] - CORE ALKALINE PHOSPHATASE 46 U/L (45-117) [facility] [place] - CORE BILIRUBIN,TOTAL 1.1 mg/dL (0.0-1.0) H [facility] [place] - CORE PLEASE NOTE:Total bilirubin results may be falselyelevated in patients taking Eltrombopag. AST (SGOT) 14 U/L (11-39) [facility] of [employer] ALT (SGPT) 25 U/L (12-78) [facility] of [employer] GFR >60 ml/min/1.73m2 (>59) Laboratory [facility] of [employer] - CORE GFR ( AMER) >60 ml/min/1.73m2 (>59) [facility] of [employer] GFR INTERPRETATION [facility] of [employer] CORE --NORMAL KIDNEY FUNCTION OR MILD DISEASE - GFR >OR= 60CHRONIC KIDNEY DISEASE - GFR 15 - 59RENAL FAILURE - GFR <15 Est. GFR calculation based on the MDRDstudy equation, which assumes a steadystate for creatinine. Est. GFR should notbe used for medication dosing. ID Date Data Source [id number] 10/12/2020 03:09:30 PM EST [facility] [employer] - CORE SPEC EXP DATE 1PATI ENT ABO/Rh A NEGATIVEANTIBODY SCREEN NEGATIVETESTING SITE PERFORMED AT [address] [place] [address] BANK COMMENT BLOOD TYPE CONFIRMED. Name Value Range Interpretation Code Description Data Geraldine rce(s) Supporting Document(s) HCG,QUANT PREG 49915 mU/mL [facility] of [employer] INTERPRETATION:LESS THAN 6 NEGATIVE 6 - 10 BORDERLINE (SUGGEST REPEAT IN 48 HOURS) APPROX HCG RANGE WEEKS POST LMP 11 - 130 3 - 4 WEEKS 75 - 2600 4 - 5 WEEKS 850 - 93424 5 - 6 WEEKS 4000 - 031159 6 - 7 [id number] - 179231 7 - 12 [id number] - 657326 12 - 16 WEEKS 1400 - 88731 16 - 29 WEEKS 940 - 11810 29 - 41 WEEKS ID Date Data Source [id number] 10/12/2020 05:46:31 PM EST [facility] [place] - CORE SPEC EXP DATE 10/15/2020ATI ENT ABO/Rh A NEGATIVEANTIBODY SCREEN NEGATIVETESTING SITE PERFORMED AT [address] [place] [address] BANK COMMENT BLOOD TYPE CONFIRMED. Name Value Range Interpretation Code Description Data Geraldine rce(s) Supporting Document(s) ID Date Data Source [id number] 09/10/2020 06:00:21 PM EST [facility] Name Value Range Interpretation Code Description Data Geraldine rce(s) Supporting Document(s) &PDF [facility] KQWJPr1sPdKTXhSk87/KTSlkEWLgd1QzSFktDAi8QXwvFAOtV1EnqOagRJVTRUBHVNmBZHgKDZIsAZTi waW [file] AgICAgICAgICAgICAgICAgICAgICAgICAgICAgICAg ICAgICAgICAgICAgICAgICAgICAgICAgICAgICAgICAgICANCiAgICAgICAgICAgICAgICAgICAgICAg ICAgICAgICAgICAgICAgICAgICAgICAgICAgICAgICAgICAgICAgICAgICAgICAgICAgICAgICAgICAg ICAgICAgICAgICAgICAgICANCiAgICAgICAgICAgIC AgICAgICAgICAgICAgICAgICAgICAgICAgICAgICAgICAgICAgICAgICAgICAgICAgICAgICAgICAgIC AgICAgICAgICAgICAgICAgICAgICAgICAgICANCiAgICAgICAgICAgICAgICAgICAgICAgICAgICAgIC AgICAgICAgICAgICAgICAgICAgICAgICAgICAgICAg ICAgICAgICAgICAgICAgICAgICAgICAgICAgICAgICAgICAgICANCiAgICAgICAgICAgICAgICAgICAg ICAgICAgICAgICAgICAgICAgICAgICAgICAgICAgICAgICAgICAgICAgICAgICAgICAgICAgICAgICAg ICAgICAgICAgICAgICAgICAgICANCiAgICAgICAgIC AgICAgICAgICAgICAgICAgICAgICAgICAgICAgICAgICAgICAgICAgICAgICAgICAgICAgICAgICAgIC AgICAgICAgICAgICAgICAgICAgICAgICAgICAgICANCiAgICAgICAgICAgICAgICAgICAgICAgICAgIC AgICAgICAgICAgICAgICAgICAgICAgICAgICAgICAg ICAgICAgICAgICAgICAgICAgICAgICAgICAgICAgICAgICAgICAgICANCiAgICAgICAgICAgICAgICAg ICAgICAgICAgICAgICAgICAgICAgICAgICAgICAgICAgICAgICAgICAgICAgICAgICAgICAgICAgICAg ICAgICAgICAgICAgICAgICAgICAgICANCiAgICAgIC AgICAgICAgICAgICAgICAgICAgICAgICAgICAgICAgICAgICAgICAgICAgICAgICAgICAgICAgICAgIC AgICAgICAgICAgICAgICAgICAgICAgICAgICAgICAgICANCiAgICAgICAgICAgICAgICAgICAgICAgIC AgICAgICAgICAgICAgICAgICAgICAgICAgICAgICAg ICAgICAgICAgICAgICAgICAgICAgICAgICAgICAgICAgICAgICAgICAgICANCjw/bYPmX6ywrIEssmX4 W4toHk7PFu3PLP8gf8MzCNLfKZebniAmNfnULjHwWFQaJngEUwq5TTotIH0TkXXnY4WjD6CwAAzqWK0V HQFiAQQiyWYdPGQoZJNfEfK1IMAvZPinYY5KfEVaHF ruYKTpFOZbQR8GXWYvA626xkYvYX4WWy0FKtOkNF0jsp3WTEHpLGTiEwgYUjh5NSunCR9AcSIcA5NyzY Phv0fPDvCmV1XWBRU6PIFgZa9AZGMyMoCjSRAvLOylCC5xIBCwFFMNzXdmjqP2UJ9JFJ5kpbKaHR2DTn HzPt8cLe9WLpVmO2HvN7UhRVKdATBHXKkgGC5HJXDv VLB9LUMuUPPtGPKHYaWdT62fNH0DD7Yli67nOiW8VPFzHsJcGEomEO93cCbgkxDrzZGuqRjiHE9LHx2+ HGwqtxVaJqhUUtjrFQNLFcBmQQmYCsLoEGFqVQZbPJRmZsC9OaKpXd8YPVAfAEFyKFXaGqPkJIFmHGCv IVdeTXJoFIX2XOQ0VWGnMOOmQH3CFwDsGWPzIOAbWX uyLFToGFRqcg2ZPFEcCAXkYLN8ZXAaIBEpUALkXNwkAHNdTWHcGra3XXVqUPKjZD7LGgLzXKCrIQRmIM HqSHIeSFBglu1UDLZyWVLgSta4UFCeMQFiDXOnLXevHLHoDTL4NNN7TNRiREWbGZ8RGfFuPKQhLPHvSp OxEGWiBWCfct1PXOQeKAYjSHP4VEOcHNCyYRTsEXgt BTVhEKI3HSz1VLDhTYRcTU1YIxQtPXEoHGO9PQIcMLSiFEAegt2NIYUqUTLlHDP5VFKrZSPfIZJhERtg VTEzUGM5RillWSQvQWLrSP2SXfBcNMEkAVB2JOjaVWReKYBhsx1YJPMtIEPlFaY6IQKmBZEtTBBpVQs2 hoVdgGLzQEv7CV2FP2LntpLyQCkZAj1Ib910CJR5JR DbEz9ND5phPo1fHOEiGXSJQq7TNSm4EtGqGNL7GNqmDYN5SOU3PeAjFGO3Lsv2VXRjBFctLmB+IDwyMj PnHrViZWXoPjPmZfD9QLIzRmfvYOqqSsVjLRK3HI4pCUTAGk6+NUpxtSHtuXjdCCSAYuT9UPBdJUcfKR VPRg0K ID Date Data Source [id number] 07/15/2020 03:29:[address] [address] Patient Name: Oralia Stevens Exam Date: 07/15/20 : 1985 Ordering Doctor: Raysa Martinez NP Attending Doctor: Raysa Martinez NP CC: EXAM:Sinuses Min 3V Comp CLINICAL INDICATION: SINUS PRESSURE/PAIN TECHNIQUE: Five x-rays of the paranasal sinuses were obtained. COMPARISON: None. FINDINGS: Paranasal sinuses are well-aerated. No air-fluid levels. No opacities. Unremarkable osseous structures. IMPRESSION: 1. Well-aerated paranasal sinuses. Professional interpretation performed by [facility] Medical Imaging at [facility] . End of diagnostic report: [id number] Signed: Amanuel Bowman MD 07/15/20 1539 Interpreted by: Amanuel BowmanTranscribed by: Amanuel Bowman Name Value Range Interpretation Code Description Data Geraldine rce(s) Supporting Document(s) ID Date Data Source [id number] 07/15/2020 03:08:00 PM EST [facility] Name Value Range Interpretation Code Description Data Geraldine rce(s) Supporting Document(s) Reported Physicians See Note Reported Physicians [place] ([facility]) Note: Reported Physicians:Ordering: Raysa HammondAttending: Raysa Martinez ID Date Data Source [id number] 07/15/2020 03:08:00 PM EST [facility] Name Value Range Interpretation Code Description Data Geraldine rce(s) Supporting Document(s) Bordetella pertussis [Presence] in Unspe cified specimen by Organism specific culture Not Detected BORDETELLA PERTUSSIS [place] ([facility]) Note: Responsible Observer: BORDET PERTU SS BORDETELLA PERTUSSIS [phone] (A) BORDETELLA PARAPERTUS Not Detected BORDETELLA P ARAPERTUS [place] ([facility]) Note: Responsible Observer: BORD PAR IS1 001 BORDETELLA PARAPERTUS [phone] (A) CHLAMYDIA PNEUMONIAE Not Detected CHLAMYDIA PNE UMONIAE [place] ([facility]) Note: Responsible Observer: CHLMY PNEUMO SAUL CHLAMYDIA PNEUMONIAE [phone] (A) Adenovirus [Presence] in Unspecified specimen by Organ ism specific culture Not Detected ADENOVIRUS [place] ([facility]) Note: Responsible Observer: ADENOVIRUS A DENOVIRUS [phone] (A) CORONAVIRUS OC43 Not Detected CORONAVIRUS OC43 [facility] ([facility]) Note: This is NOT the novel coronavirus COVID-19Responsible Observer: CORONVIRUS OC43 CORONAVIRUS OC43 [phone] (A) CORONAVIRUS NL63 Not Detected CORONAVIRUS NL63 [place] ([facility]) Note: This is NOT the novel coronavirus COVID-19Responsible Observer: CORONVIRUS NL63 CORONAVIRUS NL63 [phone] (A) CORONAVIRUS 229E Not Detected CORONAVIRUS 229E [place] ([facility]) Note: This is NOT the novel coronavirus COVID-19Responsible Observer: CORONVIRUS 229E CORONAVIRUS 229E [phone] (A) INFLUENZA B Not Detected INFLUENZA B [facility] ([facility]) Note: Responsible Observer: INFLUENZA B INFLUENZA B [phone] (A) CORONAVIRUS HKU1 Not Detected CORONAVIRUS HKU1 [place] ([facility]) Note: This is NOT the novel coronavirus COVID-19Responsible Observer: CORONVIRUS HKU1 CORONAVIRUS HKU1 [phone] (A) Mycoplasma pneumoniae [Presence] in Unsp ecified specimen by Organism specific culture Not Detected MYCOPLASMA PNEUMONIAE [place] ([facility]) Note: The Respiratory Panel is a multip lexed nucleic acid/PCR test. A negative result does not rule out the presence of PCR inhibitors in the patient sample or assay-specific nucleic acid concentrations below the level of detection by the assay.Responsible Observer: MYCOP PNEUMONIA MYCOPLASMA PNEUMONIAE [phone] (A) HUMAN METAPNEUMOVIRUS Not Detected HUMAN METAPN EUMOVIRUS [place] ([facility]) Note: Responsible Observer: HUMAN METAPN EUV HUMAN METAPNEUMOVIRUS [phone] (A) INFLUENZA A Not Detected INFLUENZA A [facility] ([facility]) Note: Responsible Observer: INFLUENZA A INFLUENZA A [phone] (A) Parainfluenza virus 1 [Presence] in Unsp ecified specimen by Organism specific culture Not Detected PARAINFLUENZA VIRUS 1 [place] ([facility] Note: Responsible Observer: PARAINFLU R 1 PARAINFLUENZA VIRUS 1 [phone] (A) Parainfluenza virus 2 [Presence] in Unsp ecified specimen by Organism specific culture Not Detected PARAINFLUENZA VIRUS 2 [place] ([facility]) Note: Responsible Observer: PARAINFLU R 2 PARAINFLUENZA VIRUS 2 [phone] (A) PARAINFLUENZA VIRUS 4 Not Detected PARAINFLUENZ A VIRUS 4 [place] ([facility]) Note: Responsible Observer: PARAINFLU R 4 PARAINFLUENZA VIRUS 4 [phone] (A) Parainfluenza virus 3 [Presence] in Unsp ecified specimen by Organism specific culture Not Detected PARAINFLUENZA VIRUS 3 [place] ([facility]) Note: Responsible Observer: PARAINFLU R 3 PARAINFLUENZA VIRUS 3 [phone] (A) RESPIRATORY SYNCY VIR Not Detected RESPIRATORY SYNCY VIR [place] ([facility]) Note: Responsible Observer: RSV RESPIRAT ORY SYNCY VIR [phone] (A) HUMAN RHINOVIRUS/ENT Not Detected HUMAN RHINOVI GAIB/ENT [place] ([facility]) Note: Responsible Observer: HMN RHINO/EN TER HUMAN RHINOVIRUS/ENT [phone] (A) ID Date Data Source [id number] 07/15/2020 03:08:00 PM EST [place] ([facility]) Name Value Range Interpretation Code Description Data Geraldine rce(s) Supporting Document(s) Reported Physicians See Note Reported Physicians [place] ([facility]) Note: Reported Physicians:Ordering: Raysa HammondAttending: Raysa Martinez ID Date Data Source [id number] 07/15/2020 03:08:00 PM EST [place] ([facility]) Name Value Range Interpretation Code Description Data Geraldine rce(s) Supporting Document(s) COVID 19 (RHEONIX) NOT-DETECTED COVID 19 (RHEONIX) [place] ([facility]) Note: The PHARMAJET COVID-19 MDx Assay is an endpoint RT-PCR assay (MOLECULAR)intended for the qualitative detection of nucleic acid from SARS-CoV-2 in nasopharyngeal swabs. COVID testing using the PHARMAJET analyzer was developed for the purpose of [...] (BANDAR) [phone] (A) ID Date Data Source [id number] 07/15/2020 03:08:00 PM EST [facility] Name Value Range Interpretation Code Description Data Geraldine rce(s) Supporting Document(s) SARS-CoV-2 (COVID-19) N gene [Presence] in Nasopharynx by ANGELICA with probe detection [facility] This lab was ordered by [facility] and reported by [facility]. ID Date Data Source [id number] 07/16/2020 07:11:00 PM EST [facility] Name Value Range Interpretation Code Description Data Geraldine rce(s) Supporting Document(s) ADENOVIRUS Not Detected [facility] CORONAVIRUS 229E Not Detected NotDetected [facility] This is NOT the novel coronavirus COVID -19 CORONAVIRUS HKU1 Not Detected [facility] This is NOT the novel coronavirus COVID -19 CORONAVIRUS NL63 Not Detected [facility] This is NOT the novel coronavirus COVID -19 CORONAVIRUS OC43 Not Detected [facility] This is NOT the novel coronavirus COVID -19 HUMAN METAPNEUMOVIRUS Not Detected NotDetected [facility] HUMAN RHINOVIRUS/ENT Not Detected NotDetected [facility] INFLUENZA A Not Detected NotDetected [facility] INFLUENZA B Not Detected NotDetected [facility] PARAINFLUENZA VIRUS 1 Not Detected [facility]Detected [facility] PARAINFLUENZA VIRUS 2 Not Detected [facility]ed [facility] PARAINFLUENZA VIRUS 3 Not Detected NotDetected [facility] PARAINFLUENZA VIRUS 4 Not Detected NotDetected [facility] RESPIRATORY SYNCY VIR Not Detected [facility]Detected [facility] BORDETELLA PARAPERTUS Not Detected NotDetected [facility] BORDETELLA PERTUSSIS Not Detected NotDetected [facility] CHLAMYDIA PNEUMONIAE Not Detected NotDetected [facility] MYCOPLASMA PNEUMONIAE Not Detected NotDetected [facility] The Respiratory Panel is a multiplexed nucleic acid/PCR test. A negative result does not rule out the presence of PCR inhibitors in the patient sample or assay-specific nucleic acid concentrations below the level of detection by the assay. ID Date Data Source [id number] 07/16/2020 07:11:00 PM EST [facility] Name Value Range Interpretation Code Description Data Geraldine rce(s) Supporting Document(s) COVID 19 (RHEONIX) NOT-DETECTED NOTDETECTED [facility] The [employer] COVID-19 MDx Assay is an en dpoint RT-PCR assay (Zumigo)intended for the qualitative detection of nucleic acid from SARS-CoV-2 in nasopharyngeal swabs. COVID testing using the [employer] analyzer was developed for the purpose of [...] public health authorities. ID Date Data Source [id number] 05/25/2020 07:44:00 AM EDT [facility] [place], [place] [address]OPQVWAP NAME: JOSE LUIS STEVENSDATE OF : 1985REPORT: OPERATIONPATIENT NUMBER: [id number] STATUS: SDMEDICAL RECORD NUMBER: [id number] OF ADMISSION: 05/19/2020DATE OF DISCHARGE: 05/19/2020DATE OF [...] Tate MDDictated: 05/19/2020 15:11DT: 05/19/2020 16:03Job #: [id number]: [facility] computer generated reports are not confirmed orauthenticated unless they are signed by the providerElectronically Authenticated and Edited by:Leo Tate MD On 05/21/2020 08:44 AM EDTElectronically Authenticated by:AMIRAH JEFFERS MD On 05/25/2020 07:44 AM EDT Name Value Range Interpretation Code Description Data Geraldine rce(s) Supporting Document(s) ID Date Data Source [id number] 05/21/2020 10:36:44 AM EDT [place] [facility] LABORATORY [facility] [place], [place] [address]Bma# SURGICAL PATHOLOGY REPORTPatient Name:JOSE LUIS STEVENSDOB:1985Received:05/20/2020Accession #:[id number](s) Received: A: POCClinical Diagnosis and History: Retained POC. DIAGNOSIS:PRODUCTS OF CONCEPTION FEW CHORIONIC VILLI AND DECIDUA, CONSISTENT WITHPRODUCTS OF CONCEPTION. GROSS DESCRIPTION: Specimen received in formalin in an evacuation device labeled "productsof conception" is a 12.0 x 4.0 x up to 1.5 cm aggregate of multipleirregular soft to rubbery fragments of red-feldman to red-brown tissue admixedwith a small amount of blood clot and blood tinged mucoid material. Someof the soft tissues appear spongy and consistent with chorionic villi. Embryonic tissue is not seen grossly. Sections are submitted formicroscopic examination. (1 block) [id number]: 05/21/2020Electronically Signed Out By Prashant Diaz MD jmdPathology Associates [place], [place] [address]Technical component performed at [facility], Histopathology, [address] [place] [address], [facility].Rep orted at [address], [facility].This report may include immunohistochemical or in-situ hybridizationresults. Testing was developed and the performance characteristicsdetermined by [facility], as required byCLIA '88. The FDA has determined that approval for specific use is notnecessary for clinical use. The quality of Hematoxylin and Eosin stainsand as applicable, for all immunohistochemical and/or special stains,including positive and negative controls, were reviewed and consideredappropriate.ICD codes: O03.4CPT4 codes: A: 91621B Name Value Range Interpretation Code Description Data [facility](s) Supporting Document(s) ID Date Data Source [id number] 05/18/2020 02:10:00 PM EDT [facility] Name Value Range Interpretation Code Description Data [facility](s) Supporting Document(s) SARS coronavirus 2 RNA [Presence] in Res piratory specimen by ANGELICA with probe detection [facility] This lab was reported by [facility] [employer] [facility]. ID Date Data Source [id number] 05/19/2020 12:41:10 AM EDT Kalee Vanegas [facility] Name Value Range Interpretation Code Description Data [facility](s) Supporting Document(s) SPECIMEN DESCRIPTION Lab Fernando nvevan bustos [facility] COVID19 RESULT (NDET) [place] of JOSE MANUEL THIS ASSAY AMPLIFIES AND DETECTSTHE TARG ET RNA USING REAL-TIME PCR.NEGATIVE 2019_NCOV RT-PCR RESULTS DONOT PRECLUDE 2019_NCOV INFECTION ANDSHOULD NOT BE USED THE SOLE BASISFOR PATIENT MANAGEMENT DECISIONS. COMMENT [facility] [place] of [facility] LABORATORY [facility] OF JOSE MANUELBARROW NEUROLOGICAL INSTITUTED APPROVED B Y THE [place]. THE [place] FOODAND DRUG ADMINISTRATION HAS NOT APPROVEDTHIS TEST. NEGATIVE RESULTS DO NOT [id number] INFECTION AND SHOULD NOT BEUSED THE SOLE BASIS FOR CLINICALDIAGNOSIS OR PATIENT MANAGEMENT DECISIONS.RESULTS EMAILED TO IC AT [phone]. FIRST TEST [place] of [facility] [employer] Lab Allia nce of [facility] SYMPTOMATIC [place] of [facility] DATE OF SYMPT ONSET Lab Allian ce of [facility] HOSPITALIZED [facility] [place] of [facility] ICU [place] of JOSE MANUEL CONGREGATE CARE SET Lab Allian ce of [facility] [place] of JOSE MANUEL ID Date Data Source [id number] 05/19/2020 09:32:40 AM EDT Laboratory Al [facility] of [facility] SPEC EXP DATE 05/21/2020PATI ENT ABO/Rh A NEGATIVEANTIBODY SCREEN POSITIVETESTING SITE PERFORMED AT [address] [place] [address] [id number] IDENT ANTI-D PRESENT, POSSIBLY PASSIVELY ACQUIRED DUE TO RH IMMUNE GLOBULIN. Recent (w/i 6 months) RhIg administration confir med. Name Value Range Interpretation Code Description Data Geraldine rce(s) Supporting Document(s) TYPE AND SCREEN Laboratory All iance of [facility] PATIENT ABO/Rh A NEGATIVE Procedure Social History Code Duration Value Status Description Data Source(s ) Smoking 05/31/2021 12:00:00 AM EDT Patient has never smoked co mpleted Patient has never smoked [facility] ([facility] ) Smoking 05/24/2021 12:00:00 AM EDT Never Smoked Cigarettes com pleted Never Smoked Cigarettes [facility] ([facility] Smoking 03/08/2021 12:00:00 AM EDT Never smoked tobacco (findi ng) completed Never smoked tobacco (finding) [place] ([facility]) Assertion 03/08/2021 12:00:00 AM EDT Finding relat ing to drug misuse behavior (finding) completed Finding relating to drug misuse behavior (finding) [place] ([facility]) Assertion 03/08/2021 12:00:00 AM EDT Current drinker of al cohol (finding) completed Current drinker of alcohol (finding) [place] ([facility]) Smoking 01/11/2021 12:00:00 AM EDT Never smoked tobacco (findi ng) completed Never smoked tobacco (finding) [place] ([facility]) Smoking 07/28/2020 12:00:00 AM EST Never smoked tobacco (findi ng) completed Never smoked tobacco (finding) [place] ([facility]) Smoking 07/21/2020 12:00:00 AM EST Never smoked tobacco (findi ng) completed Never smoked tobacco (finding) [place] ([facility]) Smoking 07/15/2020 12:00:00 AM EST Never smoked tobacco (findi ng) completed Never smoked tobacco (finding) [place] ([facility]) Smoking 07/09/2020 12:00:00 AM EST Never smoked tobacco (findi ng) completed Never smoked tobacco (finding) [place] ([facility]) Vital Signs ID Date Data Source [id number] Name Value Range Interpretation Code Description Data Source(s) Body weight 164.00 [lb_av] 164.00 [lb_av] MED[facility] T ([facility]) Body mass index (BMI) [Ratio] 27.3 kg/m2 27.3 k g/m2 [facility] ([facility]) Diastolic blood pressure 61 mm[Hg] 61 mm[Hg] [...] Systolic blood pressure 93 mm[Hg] 93 mm[Hg] M EDENT ([facility]) Systolic blood pressure 109 mm[Hg] 109 mm[Hg] M EDENT ([facility], [facility]) Oxygen saturation in Arterial blood by Pulse oximetry 99 % 99 % MEDENT ([facility], [facility]) Body temperature 97.9 [degF] 97.9 [degF] MEDENT ([facility]) Body weight 162.00 [lb_av] 162.00 [lb_av] MEDEN T ([facility]) Body height 66 [in_i] 66 [in_i] MEDENT ([facility]) 5'6" Body mass index (BMI) [Ratio] 26.1 kg/m2 26.1 k g/m2 MEDENT ([facility], [facility]) Diastolic blood pressure 76 mm[Hg] 76 mm[Hg] MEDENT ([facility]) Heart rate 92 /min 92 /min MEDENT ([facility], [facility]) Respiratory rate 15 /min 15 /min MEDENT ( [facility]) Body surface area Derived from formula 1.84 m2 1.84 m2 [facility] Systolic blood pressure 110 mm[Hg] 110 mm[Hg] G REENWAY ([facility] Diastolic blood pressure 72 mm[Hg] 72 mm[Hg] [place] ([facility]) PhenX - pain, abdominal - type and intensity protocol 2 2 [place] ([facility] Oxygen saturation in Arterial blood by Pulse oximetry 99 % 99 % [facility] ([facility] Inhaled oxygen flow rate 0 L/min 0 L/min [facility] ([facility]) Inhaled oxygen concentration 21 % 21 % [facility] ([facility] Heart rate 56 /min 56 /min [facility] ([facility] Heart rate rhythm 1 1 GREEN[place] Y ([facility]) Respiratory rate 18 /min 18 /min [facility] ([facility] Body temperature 97.8 [degF] 97.8 [degF] GREENW AY ([facility]) Body height 66 [in_i] 66 [in_i] [facility] ([facility]) Body weight 164 [lb_av] 164 [lb_av] [facility] Body mass index (BMI) [Ratio] 26.5 kg/m2 26.5 k g/m2 [facility] ([facility] Heart rate 98 /min 98 /min [facility] ([facility] Unable to obtain full set of vitals. PhenX - pain, abdominal - type and intensity protocol 0 0 [place] ([facility]) Unable to obtain full set of vitals. Oxygen saturation in Arterial blood by Pulse oximetry 98 % 98 % [place] ([facility]) Unable to obtain full set of vitals. Inhaled oxygen flow rate 0 L/min 0 L/min [place] ([facility]) Unable to obtain full set of vitals. Inhaled oxygen concentration 21 % 21 % [place] ([facility]) Unable to obtain full set of vitals. Body height 66 [in_i] 66 [in_i] MEDENT ([facility]) 5'6" Body weight 168.00 [lb_av] 168.00 [lb_av] MEDEN T ([facility]) Body mass index (BMI) [Ratio] 27.1 kg/m2 27.1 k g/m2 [facility] ([facility]) Alfred body weight 130 [lb_av] 130 [lb_av] MEDEN T ([facility]) Body weight 76.205 kg 76.205 kg [facility] ([facility]) Body surface area Derived from formula 1.86 m2 1.86 m2 [facility] ([facility]) Diastolic blood pressure 68 mm[Hg] 68 mm[Hg] MEDENT ([facility] Heart rate 89 /min 89 /min MEDENT ([facility] Body mass index (BMI) [Ratio] 27.3 kg/m2 27.3 k g/m2 MEDENT ([facility] Body height 66 [in_i] 66 [in_i] MEDENT ([facility] 5'6" Body weight 169.00 [lb_av] 169.00 [lb_av] MEDEN T ([facility] Systolic blood pressure 103 mm[Hg] 103 mm[Hg] M EDENT ([facility] Body weight 168.00 [lb_av] 168.00 [lb_av] [facility] Body mass index (BMI) [Ratio] 27.1 kg/m2 27.1 k g/m2 [facility] ([facility]) Alfred body weight 130 [lb_av] 130 [lb_av] MEDEN T ([facility]) Body weight 76.205 kg 76.205 kg [facility] ([facility]) Body surface area Derived from formula 1.86 m2 1.86 m2 [facility] ([facility]) Body height 66 [in_i] 66 [in_i] [facility] ([facility]) 5'6" Body temperature 97.6 [degF] 97.6 [degF] GREENW AY ([facility]) pt denies any other available vitals at this timeSprinsLPN PhenX - pain, abdominal - type and intensity protocol 4 4 [place]IO ([facility]) pt denies any other available vitals at this timeSprinsLPN Body temperature 97.6 [degF] 97.6 [degF] GREENW AY ([facility]) pt denies ability to take other vitals a t this time but reports these over the phoneSprinsLPN PhenX - pain, abdominal - type and intensity protocol 2 2 [place] ([facility]) pt denies ability to take other vitals a t this time but reports these over the phoneSprinsLPN Heart rate 84 /min 84 /min [facility]ALIO ([facility]) beginning of ambpt tolerated well, walke d approximately 50 ft went from 100% --pulse 84 to 98% pulse 96SprinsLPN Oxygen saturation in Arterial blood by Pulse oximetry 100 % 100 % ROS[place] ([facility]) beginning of ambpt tolerated well, walke d approximately 50 ft went from 100% --pulse 84 to 98% pulse 96SprinsLPN Inhaled oxygen flow rate 0 L/min 0 L/min [place] ([facility]) beginning of ambpt tolerated well, walke d approximately 50 ft went from 100% --pulse 84 to 98% pulse 96SprinsLPN Inhaled oxygen concentration 21 % 21 % [place] ([facility]) beginning of ambpt tolerated well, walke d approximately 50 ft went from 100% --pulse 84 to 98% pulse 96SprinsLPN Systolic blood pressure 100 mm[Hg] 100 mm[Hg] G REENWAY ([facility]) Diastolic blood pressure 66 mm[Hg] 66 mm[Hg] ROS[place]IO ([facility]) Heart rate 82 /min 82 /min ROS[facility] ([facility]) Heart rate rhythm 1 1 GREEN[place] Y ([facility]) Respiratory rate 18 /min 18 /min [place] ([facility]) Body temperature 96.5 [degF] 96.5 [degF] GREENW AY ([facility]) Body weight 162 [lb_av] 162 [lb_av] ROSAL[place] ([facility]) PhenX - pain, abdominal - type and intensity protocol 1 1 [place] ([facility]) Oxygen saturation in Arterial blood by Pulse oximetry 99 % 99 % [place] ([facility]) Inhaled oxygen flow rate 0 L/min 0 L/min [place] ([facility]) Inhaled oxygen concentration 21 % 21 % [place] ([facility]) PhenX - pain, abdominal - type and intensity protocol 0 0 [place] ([facility]) pt denies ability to take other vitals a t this timeSprinsLPN Systolic blood pressure 116 mm[Hg] 116 mm[Hg] M EDENT ([facility]) Diastolic blood pressure 76 mm[Hg] 76 mm[Hg] MEDENT ([facility], [facility]) Heart rate 78 /min 78 /min MEDENT ([facility]) Respiratory rate 16 /min 16 /min MEDENT ( [facility], [facility]) Oxygen saturation in Arterial blood by Pulse oximetry 99 % 99 % MEDENT ([facility], [facility]) Body temperature 98.1 [degF] 98.1 [degF] MEDENT ([facility], [facility]) Body weight 170.00 [lb_av] 170.00 [lb_av] MEDEN T ([facility], [facility]) Respiratory rate 16 /min 16 /min MEDENT ( [facility], [facility]) Systolic blood pressure 110 mm[Hg] 110 mm[Hg] [facility]) Diastolic blood pressure 78 mm[Hg] 78 mm[Hg] [facility] ([facility]) Heart rate 60 /min 60 /min [facility] ([facility], [facility]) Body height 66 [in_i] 66 [in_i] [facility] ([facility]) 5'6" Body mass index (BMI) [Ratio] 26.6 kg/m2 26.6 k g/m2 [facility] ([facility]) Body temperature 98.6 [degF] 98.6 [degF] [facility] ([facility]) Oxygen saturation in Arterial blood by Pulse oximetry 99 % 99 % [facility] ([facility]) Body weight 165.00 [lb_av] 165.00 [lb_av] MEDEN T ([facility]) Patient Treatment Plan of Care Planned Activity Planned Date Details Description Data Source (s) 60 ACTUAT Albuterol 0.09 MG/ACTUAT Metered Dose Inhale r 07/15/2020 12:00:00 AM [facility] [employer] [facility] Prednisone 10 MG Oral Tablet 07/15/2020 12:00:00 AM [facility] [employer] ([facility]) Amoxicillin 875 MG / Clavulanate 125 MG Oral Tablet 07/15/20 12:00:00 AM [facility] [employer] ([facility]) EQL Fluticasone Propionate 50 MCG/ACT Nasal Suspension 07/09/2020 12:00:00 AM [facility] [employer] ([facility]) Triamcinolone Acetonide 0.25 MG/ML Topical Cream 01/10/2020 12:00:0 0 AM [facility] ROS[facility]IO ([facility])
[2021-06-05] MEDS ORDERED: NS 1,000 ML IV ONE (22:55)
[2021-06-05 23:18] LABS: BASO % 0.4 % (0.0-1.0); EOS # 0.1 10^3/uL (0.0-0.5); HEMATOCRIT 33.2 % (36.0-47.0); HEMOGLOBIN 11.1 g/dl (12.0-15.5); LYMPH % 35.9 % (24.0-44.0); MEAN CORPUSCULAR HEMOGLOBIN 30.1 pg (27.0-33.0); MEAN CORPUSCULAR HGB CONC 33.4 g/dl (32.0-36.5); MONO # 0.7 10^3/uL (0.0-0.8); MONO % 6.3 % (2.0-8.0); NEUTROPHILS # 6.3 10^3/uL (1.5-8.5); NEUTROPHILS % 56.1 % (36.0-66.0); PLATELET COUNT, AUTOMATED 194 10^3/uL (150-450); RED BLOOD COUNT 3.69 10^6/uL (4.00-5.40); WHITE BLOOD COUNT 11.2 10^3/uL (4.0-10.0)
[2021-06-05 23:54] LABS: ALBUMIN 3.2 GM/DL (3.2-5.2); ALT/SGPT 17 U/L (12-78); BILIRUBIN,DIRECT 0.1 MG/DL (0.0-0.2); BILIRUBIN,TOTAL 0.4 MG/DL (0.2-1.0); BLOOD UREA NITROGEN 13 MG/DL (7-18); CALCIUM LEVEL 8.8 MG/DL (8.5-10.1); CARBON DIOXIDE LEVEL 23 MEQ/L (21-32); CHLORIDE LEVEL 109 MEQ/L (98-107); CK-MB VALUE MASS 1.3 NG/ML (<3.6); CPK CREATINE PHOSPHOKINASE 52 U/L (26-192); FREE T4 1.02 NG/DL (0.76-1.46); GLOMERULAR FILTRATION RATE > 60.0 (>60); GLUCOSE, FASTING 91 MG/DL (70-100); HCG, SERUM QUANTITATIVE 45361 MIU/ML; LIPASE 188 U/L (73-393); NT-PRO BNP 115 PG/ML (<125); POTASSIUM SERUM 3.7 MEQ/L (3.5-5.1); SODIUM LEVEL 140 MEQ/L (136-145); THYROID STIMULATING HORMONE 0.812 uIU/ML (0.358-3.740); TROPONIN I < 0.02 NG/ML (< 0.10)
--- NOTE | 2021-06-06 00:29 | REPVR ---
PROCEDURE INFORMATION: Exam: US First Trimester, Transabdominal Exam date and time: 06/05/2021 11:16 PM Age: 36 years old Clinical indication: Pain; Other: Interminent cramping; Gestational age or lmp: 6wks 5; ; Additional info: Palpitations, 6.5 weeks gestation, intermittent cramping TECHNIQUE: Imaging protocol: Real-time transabdominal obstetrical ultrasound of the maternal pelvis and a first trimester , less than 14 weeks 0 days, with image documentation. COMPARISON: No relevant prior studies available. FINDINGS: Gestation: Single intrauterine . Normal yolk sac is visualized. Embryonic/ heart rate: heart rate 127 bpm. Extra-embryonic membranes/Placenta: Unremarkable. No subchorionic bleed. Amniotic fluid: Amniotic fluid/chorionic fluid is normal for gestational age. BIOMETRY: Gestational age (AUA): [place]-rump length is 0.5 cm, consistent with 6 weeks 1 day gestational age. MATERNAL: Uterus: Unremarkable. Cervix: Unremarkable. Right adnexa: Images of the right adnexa not provided. Left adnexa: Images of the left adnexa not provided. Intraperitoneal space: No free fluid in the cul-de-sac. IMPRESSION: 1. Single IUP at 6 weeks 1 day gestational age. 2. heart rate 127 bpm. Electronically signed by: Haily Hampton On 06/06/2021 00:28:45 AM
[2021-06-06] MEDS ORDERED: CEPH500C PO (01:08)
[2021-06-06 02:00] VITALS: BP 102/64
--- NOTE | 2021-06-06 19:37 | ECGEPIP ---
[facility] - ED Test Date: 2021-06-05 Pat Name: JOSE LUIS CANDELARIO Department: Room: - Gender: Female Data Assistant: NATHAN : 1985 Requested By: DONALD Baugh Order Number: [id number] Reading MD: Bruno Raymundo Measurements Intervals Cost Rate: 77 P: 63 MN: 148 QRS: 54 QRSD: 80 T: 53 QT: 384 QTc: 434 Interpretive Statements Normal sinus rhythm POOR R WAVE PROGRESSION SIMILAR TO 07/18/20 Electronically Signed on 06-06-2021 19:37:02 EDT by Bruno Raymundo
--- NOTE | 2021-06-06 19:40 | ECGEPIP ---
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
== END 2021-06-06 02:38 | disposition home or self-care (01) ==
LOC: M ED 21:06
DX: R00.2 Palpitations (principal); R82.71 Bacteriuria; Z3A.01 Less than 8 weeks gestation of pregnancy; K21.9 Gastro-esophageal reflux disease without esophagitis; E28.2 Polycystic ovarian syndrome; Z79.899 Other long term (current) drug therapy

== ENCOUNTER 2021-09-03 14:48 | Emergency (ER) | payer OTHER ==
[~2021-09-03] VITALS: Ht 167.6 cm; Wt 85.0 kg
[~2021-09-03 14:48] MED LIST changes: +CEPH500C PO; +METF500T13 PO
[2021-09-03] MEDS ORDERED: PREN200C (15:00)
[2021-09-03 16:30] LABS: RSV AMPLIFICATION NEGATIVE (NEGATIVE)
[2021-09-03 19:15] LABS: BASO # 0.1 10^3/uL (0.0-0.2); BASO % 0.6 % (0.0-1.0); EOS # 0.1 10^3/uL (0.0-0.5); HEMATOCRIT 38.2 % (36.0-47.0); HEMOGLOBIN 12.7 g/dl (12.0-15.5); LYMPH # 2.8 10^3/uL (1.5-5.0); LYMPH % 24.1 % (24.0-44.0); MEAN CORPUSCULAR HEMOGLOBIN 30.8 pg (27.0-33.0); MEAN CORPUSCULAR HGB CONC 33.2 g/dl (32.0-36.5); MEAN CORPUSCULAR VOLUME 92.7 fl (80.0-96.0); MONO % 8.4 % (2.0-8.0); NEUTROPHILS # 7.6 10^3/uL (1.5-8.5); NEUTROPHILS % 65.2 % (36.0-66.0); PLATELET COUNT, AUTOMATED 190 10^3/uL (150-450); RED BLOOD COUNT 4.12 10^6/uL (4.00-5.40); WHITE BLOOD COUNT 11.6 10^3/uL (4.0-10.0)
[2021-09-03 19:47] LABS: ALBUMIN 3.1 GM/DL (3.2-5.2); ALT/SGPT 23 U/L (12-78); BILIRUBIN,DIRECT 0.1 MG/DL (0.0-0.2); BILIRUBIN,TOTAL 0.2 MG/DL (0.2-1.0); BLOOD UREA NITROGEN 8 MG/DL (7-18); CALCIUM LEVEL 8.6 MG/DL (8.5-10.1); CARBON DIOXIDE LEVEL 24 MEQ/L (21-32); CHLORIDE LEVEL 106 MEQ/L (98-107); CREATININE FOR GFR 0.51 MG/DL (0.55-1.30); GLOMERULAR FILTRATION RATE > 60.0 (>60); GLUCOSE, FASTING 83 MG/DL (70-100); LIPASE 160 U/L (73-393); POTASSIUM SERUM 3.7 MEQ/L (3.5-5.1); SODIUM LEVEL 137 MEQ/L (136-145); TOTAL PROTEIN 6.6 GM/DL (6.4-8.2)
[2021-09-03 20:56] VITALS: BP 113/59
== END 2021-09-03 21:36 | disposition home or self-care (01) ==
LOC: M ED 14:48
DX: O36.8190 Decreased fetal movements, unspecified trimester, not applicable or unspecified (principal); O26.899 Other specified pregnancy related conditions, unspecified trimester; M54.50 Low back pain, unspecified; O98.519 Other viral diseases complicating pregnancy, unspecified trimester; U07.1 COVID-19; O99.280 Endocrine, nutritional and metabolic diseases complicating pregnancy, unspecified trimester; E28.2 Polycystic ovarian syndrome; Z79.84 Long term (current) use of oral hypoglycemic drugs; Z3A.00 Weeks of gestation of pregnancy not specified

== ENCOUNTER → 2024-03-24 | Outpatient (CLI) | payer OTHER ==
[~2024-03-24] MED LIST changes: +PREN200C
[2024-03-24 08:50] LABS: HEMATOCRIT 37.3 % (36.0-47.0); HEMOGLOBIN 12.6 g/dl (12.0-15.5); MEAN CORPUSCULAR HEMOGLOBIN 29.9 pg (27.0-33.0); MEAN CORPUSCULAR HGB CONC 33.8 g/dl (32.0-36.5); MEAN CORPUSCULAR VOLUME 88.6 fl (80.0-96.0); PLATELET COUNT, AUTOMATED 189 10^3/uL (150-450); RED BLOOD COUNT 4.21 10^6/uL (4.00-5.40); WHITE BLOOD COUNT 6.4 10^3/uL (4.0-10.0)
[2024-03-24 09:01] LABS: HEMOGLOBIN A1c 4.8 % (4.0-6.0)
[2024-03-24 09:16] LABS: ALBUMIN 3.9 G/DL (3.2-5.2); ALKALINE PHOSPHATASE 57 U/L (46-116); ALT/SGPT 13 U/L (7.0-40); AST/SGOT 11 U/L (<34); BILIRUBIN,TOTAL 1.7 MG/DL (0.3-1.2); BLOOD UREA NITROGEN 11 MG/DL (9-23); CALCIUM LEVEL 9.1 MG/DL (8.5-10.1); CARBON DIOXIDE LEVEL 23 MMOL/L (20-31); CHLORIDE LEVEL 109 MMOL/L (98-107); CHOLESTEROL LEVEL 116 MG/DL (<200); CHOLESTEROL RISK RATIO 2.56 (<5); CREATININE FOR GFR 0.71 MG/DL (0.55-1.30); GLOMERULAR FILTRATION RATE > 60.0 (>60); GLUCOSE, FASTING 86 MG/DL (60-100); HDL CHOLESTEROL 45.3 MG/DL (>40); LDL CHOLESTEROL 62.7 MG/DL (<100); NON-HDL-C 70.7 MG/DL; POTASSIUM SERUM 4.3 MMOL/L (3.5-5.1); SODIUM LEVEL 140 MMOL/L (136-145); TOTAL PROTEIN 6.4 G/DL (5.7-8.2); TRIGLYCERIDES LEVEL 40 MG/DL (<150)
[2024-03-24 09:17] LABS: THYROID STIMULATING HORMONE 0.603 uIU/ML (0.55-4.78)
== END ==
LOC: M LAB 08:14
PROVIDERS: ATTEND Physician Assistant
DX: R63.5 Abnormal weight gain (principal); Z91.89 Other specified personal risk factors, not elsewhere classified

== ENCOUNTER → 2024-04-15 | Outpatient (CLI) | payer OTHER ==
[2024-04-15 17:36] LABS: HEMOGLOBIN 12.4 g/dl (12.0-15.5); MEAN CORPUSCULAR HEMOGLOBIN 29.2 pg (27.0-33.0); MEAN CORPUSCULAR HGB CONC 32.6 g/dl (32.0-36.5); MEAN CORPUSCULAR VOLUME 89.6 fl (80.0-96.0); PLATELET COUNT, AUTOMATED 199 10^3/uL (150-450); RED BLOOD COUNT 4.24 10^6/uL (4.00-5.40); WHITE BLOOD COUNT 8.3 10^3/uL (4.0-10.0)
[2024-04-15 18:04] LABS: ALBUMIN 4.2 G/DL (3.2-5.2); ALKALINE PHOSPHATASE 59 U/L (46-116); ALT/SGPT 13 U/L (7.0-40); AST/SGOT 12 U/L (<34); BILIRUBIN,TOTAL 1.3 MG/DL (0.3-1.2); BLOOD UREA NITROGEN 12 MG/DL (9-23); CALCIUM LEVEL 9.1 MG/DL (8.5-10.1); CARBON DIOXIDE LEVEL 28 MMOL/L (20-31); CHLORIDE LEVEL 106 MMOL/L (98-107); CHOLESTEROL LEVEL 123 MG/DL (<200); CHOLESTEROL RISK RATIO 2.15 (<5); CREATININE FOR GFR 0.75 MG/DL (0.55-1.30); GLOMERULAR FILTRATION RATE > 60.0 (>60); GLUCOSE, FASTING 96 MG/DL (60-100); HDL CHOLESTEROL 57.1 MG/DL (>40); LDL CHOLESTEROL 52.5 MG/DL (<100); NON-HDL-C 65.9 MG/DL; POTASSIUM SERUM 4.4 MMOL/L (3.5-5.1); SODIUM LEVEL 137 MMOL/L (136-145); TRIGLYCERIDES LEVEL 67 MG/DL (<150)
== END ==
LOC: M LAB 16:55
PROVIDERS: ATTEND Physician Assistant
DX: R63.5 Abnormal weight gain (principal); Z91.89 Other specified personal risk factors, not elsewhere classified